=== PATIENT | male | born 1935 | race Caucasian/White ===

== ENCOUNTER 2021-10-30 07:54 | Outpatient (REF) | payer MEDICARE, SELFPAY ==
[2021-07-31 10:05] VITALS: BP 132/60; BP 154/82
[2021-10-24 07:27] VITALS: BP 148/50; BMI 29.4
[2021-10-30 08:21] LABS: MANUAL DIFF FLAG NO
[2021-10-30 08:40] LABS: Basophils Absolute Auto 0.1 X10*3/uL (0.0-0.2); Basophils Percent Auto 1.1 % (0-2); Eosinophils Absolute Auto 0.4 X10*3/uL (0.0-0.4); Eosinophils Percent Auto 4.7 % (0-4); Hematocrit 42.9 % (42.0-52.0); Hemoglobin 13.6 g/dl (14.0-18.0); Imm Gran Abs Auto 0.04 X10*3/uL (0.00-0.03); Imm Gran Pct Auto 0.5 % (0.0-0.4); Lymphocytes Absolute Auto 1.8 X10*3/uL (1.2-4.9); Lymphocytes Percent Auto 21.6 % (20-40); Mean Corpuscular HGB Conc 31.7 g/dl (31.0-36.0); Mean Corpuscular Hemoglobin 30.6 pg (27.0-33.0); Mean Corpuscular Volume 96.4 fL (80.0-98.0); Mean Platelet Volume 10.1 fL (9.4-12.4); Monocytes Absolute Auto 0.8 X10*3/uL (0.1-1.2); Neutrophils Percent Auto 62.1 % (45-73); Platelet Count 192 X10*3/uL (160-400); Red Blood Count 4.45 X10*6/uL (4.60-5.80); Red Cell Distribution Width 12.6 % (11.0-16.0); White Blood Count 8.1 X10*3/uL (4.8-10.8)
[2021-10-30 09:44] LABS: Alanine Aminotransferase 26 U/L (0-40); Albumin Level 3.8 g/dL (3.5-5.0); Alkaline Phosphatase 83 U/L (39-117); Anion Gap 12 (12-20); Aspartate Amino Transferase 26 U/L (5-37); Bilirubin Total 0.2 mg/dL (0.0-1.0); Blood Urea Nitrogen 31 mg/dL (9-16); Calcium 9.5 mg/dL (8.4-10.2); Carbon Dioxide 27 mmol/L (22-29); Chloride 109 mmol/L (96-108); Cholesterol 198 mg/dL; Estimated Glomerular Filt Rate 48; Glucose Fasting 99 mg/dL (60-99); HDL Cholesterol 45 mg/dL; LDL Cholesterol Calculated 121 mg/dl; Potassium 5.3 mmol/L (3.3-5.1); Sodium 143 mmol/L (135-145); Total Protein 6.7 g/dL (6.5-8.0); Triglycerides 162 mg/dL
== END 2021-10-30 07:55 | disposition home or self-care (01) ==
LOC: HO.LAB 07:54
PROVIDERS: PCP Internal Medicine Medical Oncology; Visit Provider Internal Medicine Medical Oncology
DX: I10 Essential (primary) hypertension (principal); E78.2 Mixed hyperlipidemia
CPT/HCPCS: 36415; 80053; 80061; 85025

== ENCOUNTER 2022-01-30 07:41 | Outpatient (REF) | payer MEDICARE, SELFPAY ==
[2021-11-16 07:06] VITALS: BP 122/60; BP 126/56; BMI 29.9
[2022-01-30 08:03] LABS: MANUAL DIFF FLAG NO
[2022-01-30 09:03] LABS: Basophils Absolute Auto 0.1 X10*3/uL (0.0-0.2); Basophils Percent Auto 0.8 % (0-2); Eosinophils Absolute Auto 0.3 X10*3/uL (0.0-0.4); Eosinophils Percent Auto 3.5 % (0-4); Hematocrit 41.7 % (42.0-52.0); Hemoglobin 13.5 g/dl (14.0-18.0); Imm Gran Abs Auto 0.02 X10*3/uL (0.00-0.03); Imm Gran Pct Auto 0.3 % (0.0-0.4); Lymphocytes Absolute Auto 1.9 X10*3/uL (1.2-4.9); Lymphocytes Percent Auto 24.2 % (20-40); Mean Corpuscular HGB Conc 32.4 g/dl (31.0-36.0); Mean Corpuscular Hemoglobin 30.8 pg (27.0-33.0); Mean Corpuscular Volume 95.2 fL (80.0-98.0); Mean Platelet Volume 10.2 fL (9.4-12.4); Monocytes Absolute Auto 0.7 X10*3/uL (0.1-1.2); Monocytes Percent Auto 8.7 % (2-11); Neutrophils Absolute Auto 4.8 x10*3/uL (2.0-8.3); Neutrophils Percent Auto 62.5 % (45-73); Platelet Count 188 X10*3/uL (160-400); Red Blood Count 4.38 X10*6/uL (4.60-5.80); Red Cell Distribution Width 12.4 % (11.0-16.0); White Blood Count 7.7 X10*3/uL (4.8-10.8)
[2022-01-30 09:51] LABS: Alanine Aminotransferase 21 U/L (0-40); Albumin Level 3.9 g/dL (3.5-5.0); Alkaline Phosphatase 84 U/L (39-117); Anion Gap 13 (12-20); Aspartate Amino Transferase 21 U/L (5-37); Bilirubin Total 0.4 mg/dL (0.0-1.0); Blood Urea Nitrogen 37 mg/dL (9-16); Calcium 8.9 mg/dL (8.4-10.2); Carbon Dioxide 26 mmol/L (22-29); Chloride 106 mmol/L (96-108); Cholesterol 192 mg/dL; Estimated Glomerular Filt Rate 52; Glucose Fasting 100 mg/dL (60-99); HDL Cholesterol 50 mg/dL; LDL Cholesterol Calculated 111 mg/dl; Potassium 4.8 mmol/L (3.3-5.1); Sodium 140 mmol/L (135-145); Total Protein 6.8 g/dL (6.5-8.0); Triglycerides 155 mg/dL
== END 2022-01-30 07:42 | disposition home or self-care (01) ==
LOC: HO.LAB 07:41
PROVIDERS: PCP Internal Medicine Medical Oncology; Visit Provider Internal Medicine Medical Oncology
DX: I10 Essential (primary) hypertension (principal); E78.2 Mixed hyperlipidemia
CPT/HCPCS: 36415; 80053; 80061; 85025

== ENCOUNTER 2022-08-27 09:14 | Outpatient (REF) | payer MEDICARE, SELFPAY ==
[2021-11-16 07:06] VITALS: BP 122/60; BP 126/56; BMI 29.9
[2022-08-27 09:26] LABS: MANUAL DIFF FLAG NO
[2022-08-27 10:19] LABS: Basophils Absolute Auto 0.1 X10*3/uL (0.0-0.2); Eosinophils Absolute Auto 0.3 X10*3/uL (0.0-0.4); Eosinophils Percent Auto 3.5 % (0-4); Hematocrit 41.8 % (42.0-52.0); Hemoglobin 13.3 g/dl (14.0-18.0); Imm Gran Abs Auto 0.02 X10*3/uL (0.00-0.03); Imm Gran Pct Auto 0.3 % (0.0-0.4); Lymphocytes Absolute Auto 1.9 X10*3/uL (1.2-4.9); Lymphocytes Percent Auto 24.9 % (20-40); Mean Corpuscular HGB Conc 31.8 g/dl (31.0-36.0); Mean Corpuscular Hemoglobin 30.4 pg (27.0-33.0); Mean Corpuscular Volume 95.7 fL (80.0-98.0); Mean Platelet Volume 9.9 fL (9.4-12.4); Monocytes Absolute Auto 0.6 X10*3/uL (0.1-1.2); Neutrophils Absolute Auto 4.8 x10*3/uL (2.0-8.3); Neutrophils Percent Auto 62.3 % (45-73); Platelet Count 181 X10*3/uL (160-400); Red Blood Count 4.37 X10*6/uL (4.60-5.80); Red Cell Distribution Width 12.6 % (11.0-16.0); White Blood Count 7.7 X10*3/uL (4.8-10.8)
[2022-08-27 11:20] LABS: Alanine Aminotransferase 22 U/L (0-40); Albumin Level 3.7 g/dL (3.5-5.0); Alkaline Phosphatase 89 U/L (39-117); Anion Gap 12 (12-20); Aspartate Amino Transferase 23 U/L (5-37); Bilirubin Total 0.5 mg/dL (0.0-1.0); Blood Urea Nitrogen 23 mg/dL (9-16); Carbon Dioxide 28 mmol/L (22-29); Chloride 108 mmol/L (96-108); Cholesterol 174 mg/dL; Estimated Glomerular Filt Rate 52; Glucose Random 91 mg/dL (60-115); HDL Cholesterol 46 mg/dL; LDL Cholesterol Calculated 94 mg/dl; Potassium 4.9 mmol/L (3.3-5.1); Sodium 143 mmol/L (135-145); Total Protein 6.4 g/dL (6.5-8.0); Triglycerides 172 mg/dL
== END 2022-08-27 09:15 | disposition home or self-care (01) ==
LOC: HO.LAB 09:14
PROVIDERS: PCP Internal Medicine Medical Oncology; Visit Provider Internal Medicine Medical Oncology
DX: I10 Essential (primary) hypertension (principal); E78.2 Mixed hyperlipidemia; E66.3 Overweight
CPT/HCPCS: 36415; 80053; 80061; 85025

== ENCOUNTER 2023-01-28 10:08 | Outpatient (REF) | payer MEDICARE, SELFPAY ==
[2021-11-16 07:06] VITALS: BP 122/60; BP 126/56; BMI 29.9
== END 2023-01-28 10:09 | disposition home or self-care (01) ==
LOC: HO.LAB 10:08
PROVIDERS: PCP Internal Medicine Medical Oncology; Visit Provider Internal Medicine Medical Oncology
DX: Z12.5 Encounter for screening for malignant neoplasm of prostate (principal); I10 Essential (primary) hypertension; E78.2 Mixed hyperlipidemia; N40.1 Benign prostatic hyperplasia with lower urinary tract symptoms; E66.3 Overweight
CPT/HCPCS: 36415; 80053; 80061; 84153; 85025

== ENCOUNTER 2023-02-18 08:45 | Emergency (ER) | payer MEDICARE, SELFPAY ==
[2021-11-16 07:06] VITALS: BP 122/60; BP 126/56; BMI 29.9
--- NOTE | ~2023-02-18 | XR_ITS ---
EXAMINATION: XR KNEE, LEFT CLINICAL INFORMATION: Pain and popping in left knee COMPARISON: None available. TECHNIQUE: Four views of the left knee. FINDINGS: No fracture or joint effusion. Alignment is anatomic. Joint spaces are maintained. No abnormal soft tissue calcification. XR/XR knee LT 3V IMPRESSION: Normal left knee.
--- NOTE | ~2023-02-18 | US_ITS ---
EXAMINATION: US EXTREMITY, NONVASCULAR left CLINICAL INFORMATION: Posterior left knee pain COMPARISON: None available. TECHNIQUE: Real-time examination in the left popliteal fossa. FINDINGS: No mass, cyst, or abnormal soft tissue distortion seen. The popliteal vein compresses, with no focal abnormality seen. Popliteal vein patency is observed. US/US extremity nonvascular IMPRESSION: No focal sonographic abnormality.
[2023-02-18 08:52] VITALS: BP 120/68; BP 172/66; PULSE 56; PULSE 58; RESP 16; TEMP 36.5; O2SAT 98; O2SAT 99; BMI 26.0
--- NOTE | 2023-02-18 09:10 | ED.LOWEXIN ---
HPI - Extremity Injury (Lower) General Chief Complaint: Extremity Injury, Lower Stated Complaint: L LEG PAIN WHILE WALKING, NO FALL Time Seen by Provider: 02/18/23 09:03 Source: patient, EMS, RN notes reviewed and old records reviewed Mode of arrival: EMS History of Present Illness HPI Narrative: 87-year-old male with no significant past medical history presenting to the ED complaining of posterior left knee pain s/p walking down the stairs [employer] and hearing a pop. Patient reports old injury to same knee about 1 month ago while gardening. Denies direct injury/trauma or fall, has been minimally ambulatory since incident, with pain. Denies numbness, tingling, weakness, fever/chills, headache Related Data Home Medications Medication Instructions Recorded Confirmed aspirin 81 mg tablet,delayed 81 mg PO DAILY 11/30/22 release metoprolol tartrate 100 mg tablet 100 mg PO BID 11/30/22 simvastatin 40 mg tablet 40 mg PO QPM 11/30/22 Previous Rx's Medication Instructions Recorded azithromycin 250 mg tablet See Rx Instructions PO .COMPLEX #6 11/30/22 (Zithromax Z-Greg) tabs montelukast 10 mg tablet 10 mg PO BEDTIME #30 tabs 11/30/22 Allergies Allergy/AdvReac Type Severity Reaction Status Date / Time No Known Allergies Allergy Verified 11/30/22 10:31 [No Known Allergies*] Review of Systems Review of Systems: Constitutional: No Fever, No Chills ENT/Mouth: No Ear Pain, No Nasal Congestion, No sore throat, No Rhinorrhea, No Swallowing Difficulty Cardiovascular: No Chest Pain, No SOB Respiratory: No Cough, No Sputum, No Wheezing Gastrointestinal: No Nausea, No Vomiting, No Abdominal pain Musculoskeletal: + joint pain, No Myalgias, No Joint Swelling Skin: No Skin Lesions, No rash Neuro: No Weakness, No Numbness, No Paresthesias Yes all other systems are reviewed and are negative Constitutional: Constitutional: Reports as per [facility] Past Medical History Attestation statement: The following information was validated with the patient. Source: old records reviewed Social History Social History Alcohol intake: never Patient Tobacco Use Status: Never used Tobacco Tobacco use type: Cigarette Smoked in Last 30 Days: No Use of substances other than those prescribed or required for medical reasons: No Advance Directives: No Advance Directives Information Provided: No Physical Exam Vital Signs: Vital Signs: Last Vital Signs Temp 97.9 F 02/18/23 10:31 Pulse 58 02/18/23 10:31 Resp 18 02/18/23 10:31 BP 161/74 H 02/18/23 10:31 Pulse Ox 99 02/18/23 10:31 O2 Del Method Room Air 02/18/23 10:31 BMI result Body Mass Index 26.0 Const: General: cooperative, healthy appearing and no acute distress Orientation/consciousness: patient oriented x3 Limitations: no limitations HEENT: Head: Yes normal to inspection and Yes atraumatic Ears: hearing grossly normal bilaterally General nose exam: Normal external nose present Face and sinus: Yes normal facial exam Eyes: General: appearance normal, both eyes and all related structures EOM: EOMs intact bilaterally Neck: Neck: Yes normal visual inspection and Yes no meningeal signs Resp: Effort & Inspection: normal respiratory effort and no respiratory distress Cardio: Rate: regular rate Peripheral pulses: Peripheral pulses 2+ throughout Skin: Rashes: no rashes Wounds: no wounds Neuro: General: patient oriented x3, tone normal and no meningeal signs Gait exam (Neuro): Normal gait present Extrem: Other: Left knee without noted deformity, + tenderness to palpation to posterior aspect/distal posterior thigh, no deformity/erythema or ecchymosis. Neurovascular intact distally. Full range of motion intact with some discomfort. No pitting edema, no Achilles tenderness or calf tenderness General: Yes normal to inspection Course Course Course Narrative: 1107--US extremity nonvascular IMPRESSION: No focal sonographic abnormality.? XR knee LT 3V IMPRESSION: Normal left knee. > [place] wrap applied for comfort > recommended close PCP/orthopedic follow-up Medical Decision Making Medical Decision Making MDM Narrative: 87-year-old male with no significant past medical history presenting to the ED complaining of posterior left knee pain s/p walking down the stairs [employer] and hearing a pop. On exam vital signs stable, NAD, nontoxic appearing with physical exam as noted above. Concern for tendon/ligamental, musculoskeletal injury. Lower suspicion for fracture, dislocation, meniscal injury. No evidence of septic joint/arthritis. Lower suspicion for Achilles or gastrocnemius muscle injury Plan: X-ray, ultrasound Please refer to course for remaining clinical decision making, interpretation of labs/imaging results, and discussions with consultants and/or family members. Differential Diagnosis Differential Diagnoses: The differential diagnosis associated with the presentation includes As above Independent Interpretation I performed an independent interpretation of an: Plain X-Ray and Ultrasound Radiology Impression Discussion of test interpretation with radiology: I have reviewed the radiologist's reading. Independent Historian Clinical information obtained from an independent historian. History obtained from or confirmed by: Spouse External Record Review External record reviewed: Inpatient record, Office record, Outpatient record, Prior outpatient labs, Prior outpatient radiology, Primary care record and Outside ED record Tests considered The following testing was considered but not selected: As above Prescription Management I considered prescription management with: Pain Medication Discharge Plan Discharge Clinical Impression: Acute knee pain Qualifiers: Laterality: left Qualified Code(s): M25.562 - Pain in left knee Patient Disposition: Home, Self-Care Instructions: Knee Pain (ED) Additional Instructions: Your x-ray and ultrasound were unremarkable Wear [place] wrap for stability/comfort Ice and elevate Take Tylenol /Motrin for pain/swelling Follow-up with her doctor and Orthopedics, you will likely need an MRI Symptoms persist or worsen/becomes unbearable return to the ED Prescriptions: No Action metoprolol tartrate 100 mg tablet 100 mg PO BID simvastatin 40 mg tablet 40 mg PO QPM aspirin 81 mg tablet,delayed release (DR/EC) 81 mg PO DAILY azithromycin [Zithromax Z-Greg] 250 mg tablet See Rx Instructions PO .COMPLEX Qty: 6 0RF Rx Instructions: For 250 mg dose pack: take 500 mg today (day 1), then 250 mg for 4 days (days 2-5) PO montelukast 10 mg tablet 10 mg PO BEDTIME Qty: 30 0RF Referrals: [facility]Provider Group] - 1 week Interventions: ED Discharge Assessment Last Done: 02/18/23 11:36 Discharge Date/Time: 02/18/23 11:36
[2023-02-18 10:31] VITALS: BP 161/74; PULSE 58; RESP 18; TEMP 36.6; O2SAT 99
== END 2023-02-18 11:36 | disposition home or self-care (01) ==
PROVIDERS: Emergency Provider Emergency Medicine
DX: M25.562 Pain in left knee (principal); Z87.891 Personal history of nicotine dependence
CPT/HCPCS: 73562; 76882; 99284

== ENCOUNTER 2023-02-27 09:49 | Outpatient (AMB) | payer MEDICARE, SELFPAY ==
[2021-11-16 07:06] VITALS: BP 122/60; BP 126/56; BMI 29.9
[2023-02-22 13:02] VITALS: BP 122/60; BP 126/56; BMI 29.9
--- NOTE | 2023-02-27 10:38 | A.OFFVIS_ITS ---
Intake Vital Signs 02/27/23 10:39 Height 5 ft 5 in Weight 156 lb BMI 26.0 Intake Visit Reasons: [employer]-Left Knee Pain Intake Note: Doroteo is a 87 year old male who presents today as a new patient for a evaluation for left knee pain, DOI 02/18/23. Patient reports when he was going down the steps he felt a pop and his son had to help him go down the stairs. Hx of home exercises with mild relief. He states that his pain is on the medial aspect of the knee. He denies any other injuries. He has returned to riding his stationary bike with no resistance. He has taken Tylenol which gives him mild relief. He has been walking with a walker to be safe. Allergies No Known Allergies [No Known Allergies*] Allergy (Verified 02/27/23 10:41) Medication List - Last Reconciled 02/27/23 by Kashif Krause MD aspirin 81 mg PO DAILY azithromycin (Zithromax Z-Greg) For 250 mg dose pack: take 500 mg today (day 1), then 250 mg for 4 days (days 2-5) PO metoprolol tartrate 100 mg PO BID montelukast 10 mg PO BEDTIME simvastatin 40 mg PO QPM [facility] Social History Alcohol intake: never Patient Tobacco Use Status: Never used Tobacco Tobacco use type: Cigarette Physical Exam Vital Signs: BMI result Body Mass Index 26.0 Const Other: Well-nourished well-developed very friendly male awake alert and oriented x3 in no acute distress Extrem Other: Bilateral lower extremity examination shows good capillary refill, no skin lesions noted, normal sensation light touch Left knee examination shows a minimal effusion, full active extension and flexion, no palpable defects within his patella or quadriceps tendons, tenderness along his medial joint line, positive Farhana's test, no instability Results Reviewed Results Reviewed: X-rays of the patient's left knee show mild diffuse joint space narrowing, no acute bony abnormalities Assessment & Plan Assessment & Plan (1) Left knee pain: Code(s): M25.562 - Pain in left knee Plan: Mr. 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 At this point the patient's symptoms seem to be improving on their own. Activity modifications were discussed at length with the patient. We will hold off on an MRI at this time. The patient will follow-up with me should his symptoms not plateau at an unacceptable level over the next few months. If his mechanical symptoms do continue or worsen I will order an MRI of his left knee to further evaluate the status of his medial meniscus. Feel free to call me at any time should questions regarding his orthopedic management arise. Thank you very much for asking me to see this very friendly gentleman. I spent 22 minutes in reviewing the patient's records and imaging studies, seeing the patient and documenting in the medical record. Coding Level of Care Code New Pt Level 2 (04116) Diagnoses Left knee pain M25.562
[2023-02-27 10:39] VITALS: BMI 26.0
== END 2023-02-27 10:56 | disposition home or self-care (01) ==
PROVIDERS: Visit Provider Orthopaedic Surgery
DX: M25.562 Pain in left knee (principal)
CPT/HCPCS: 99202

== ENCOUNTER → 2023-02-27 09:49 | Outpatient (BNVA) | payer MEDICARE, SELFPAY ==
[2023-02-22 13:02] VITALS: BP 122/60; BP 126/56; BMI 29.9
== END ==
PROVIDERS: Visit Provider Orthopaedic Surgery
DX: M25.562 Pain in left knee (principal)
CPT/HCPCS: 99202

== ENCOUNTER 2023-05-06 09:07 | Outpatient (REF) | payer MEDICARE, SELFPAY ==
[2023-02-22 13:02] VITALS: BP 122/60; BP 126/56; BMI 29.9
[2023-05-06 09:32] LABS: MANUAL DIFF FLAG NO
[2023-05-06 10:22] LABS: Basophils Absolute Auto 0.1 X10*3/uL (0.0-0.2); Basophils Percent Auto 1.2 % (0-2); Eosinophils Absolute Auto 0.5 X10*3/uL (0.0-0.4); Hemoglobin 12.7 g/dl (14.0-18.0); Imm Gran Abs Auto 0.03 X10*3/uL (0.00-0.03); Imm Gran Pct Auto 0.4 % (0.0-0.4); Lymphocytes Absolute Auto 1.6 X10*3/uL (1.2-4.9); Lymphocytes Percent Auto 20.6 % (20-40); Mean Corpuscular HGB Conc 31.8 g/dl (31.0-36.0); Mean Corpuscular Hemoglobin 30.5 pg (27.0-33.0); Mean Corpuscular Volume 95.9 fL (80.0-98.0); Mean Platelet Volume 10.3 fL (9.4-12.4); Monocytes Absolute Auto 0.7 X10*3/uL (0.1-1.2); Monocytes Percent Auto 9.4 % (2-11); Neutrophils Absolute Auto 4.8 x10*3/uL (2.0-8.3); Neutrophils Percent Auto 62.4 % (45-73); Platelet Count 185 X10*3/uL (160-400); Red Blood Count 4.17 X10*6/uL (4.60-5.80); Red Cell Distribution Width 12.6 % (11.0-16.0); White Blood Count 7.7 X10*3/uL (4.8-10.8)
[2023-05-06 11:29] LABS: Alanine Aminotransferase 19 U/L (0-40); Albumin Level 3.7 g/dL (3.5-5.0); Alkaline Phosphatase 87 U/L (39-117); Anion Gap 15 (12-20); Aspartate Amino Transferase 20 U/L (5-37); Bilirubin Total 0.4 mg/dL (0.0-1.0); Blood Urea Nitrogen 38 mg/dL (9-16); Calcium 9.5 mg/dL (8.4-10.2); Carbon Dioxide 24 mmol/L (22-29); Chloride 107 mmol/L (96-108); Cholesterol 155 mg/dL (<200); Estimated Glomerular Filt Rate 54; Glucose Fasting 103 mg/dL (60-99); HDL Cholesterol 39 mg/dL (>40); LDL Cholesterol Calculated 86 mg/dL (<100); Potassium 4.9 mmol/L (3.3-5.1); Sodium 141 mmol/L (135-145); Total Protein 7.1 g/dL (6.5-8.0); Triglycerides 152 mg/dL (<150)
== END 2023-05-06 09:08 | disposition home or self-care (01) ==
LOC: HO.LAB 09:07
PROVIDERS: PCP Internal Medicine Medical Oncology; Visit Provider Internal Medicine Medical Oncology
DX: I10 Essential (primary) hypertension (principal); E78.2 Mixed hyperlipidemia; E66.3 Overweight
CPT/HCPCS: 36415; 80053; 80061; 85025

== ENCOUNTER 2023-11-11 08:41 | Outpatient (REF) | payer MEDICARE, SELFPAY ==
[2023-02-22 13:02] VITALS: BP 122/60; BP 126/56; BMI 29.9
[2023-11-11 09:01] LABS: MANUAL DIFF FLAG NO
[2023-11-11 09:19] LABS: Basophils Absolute Auto 0.1 X10*3/uL (0.0-0.2); Eosinophils Absolute Auto 0.4 X10*3/uL (0.0-0.4); Eosinophils Percent Auto 4.8 % (0-4); Hematocrit 41.5 % (42.0-52.0); Hemoglobin 13.4 g/dl (14.0-18.0); Imm Gran Abs Auto 0.03 X10*3/uL (0.00-0.03); Imm Gran Pct Auto 0.3 % (0.0-0.4); Lymphocytes Absolute Auto 1.8 X10*3/uL (1.2-4.9); Lymphocytes Percent Auto 20.4 % (20-40); Mean Corpuscular HGB Conc 32.3 g/dl (31.0-36.0); Mean Corpuscular Hemoglobin 30.5 pg (27.0-33.0); Mean Corpuscular Volume 94.5 fL (80.0-98.0); Mean Platelet Volume 10.1 fL (9.4-12.4); Monocytes Absolute Auto 0.6 X10*3/uL (0.1-1.2); Monocytes Percent Auto 7.2 % (2-11); Neutrophils Absolute Auto 5.7 x10*3/uL (2.0-8.3); Neutrophils Percent Auto 66.3 % (45-73); Platelet Count 184 X10*3/uL (160-400); Red Blood Count 4.39 X10*6/uL (4.60-5.80); Red Cell Distribution Width 12.8 % (11.0-16.0); White Blood Count 8.6 X10*3/uL (4.8-10.8)
[2023-11-11 09:45] LABS: Alanine Aminotransferase 25 U/L (0-40); Albumin Level 3.8 g/dL (3.5-5.0); Alkaline Phosphatase 87 U/L (39-117); Anion Gap 10 (12-20); Aspartate Amino Transferase 23 U/L (5-37); Bilirubin Total 0.4 mg/dL (0.0-1.0); Blood Urea Nitrogen 41 mg/dL (9-16); Calcium 9.6 mg/dL (8.4-10.2); Carbon Dioxide 27 mmol/L (22-29); Chloride 112 mmol/L (96-108); Cholesterol 173 mg/dL (<200); Estimated Glomerular Filt Rate 56; Glucose Fasting 102 mg/dL (60-99); HDL Cholesterol 46 mg/dL (>40); LDL Cholesterol Calculated 98 mg/dL (<100); Potassium 5.5 mmol/L (3.3-5.1); Sodium 143 mmol/L (135-145); Total Protein 7.1 g/dL (6.5-8.0); Triglycerides 148 mg/dL (<150)
[2023-11-11 10:00] LABS: Prostate Specific Antigen 0.72 ng/mL (<0.05-4.0)
== END 2023-11-11 08:42 | disposition home or self-care (01) ==
LOC: HO.LAB 08:41
PROVIDERS: PCP Internal Medicine Medical Oncology; Visit Provider Internal Medicine Medical Oncology
DX: I10 Essential (primary) hypertension (principal); E78.2 Mixed hyperlipidemia; N40.1 Benign prostatic hyperplasia with lower urinary tract symptoms; E66.3 Overweight; Z12.5 Encounter for screening for malignant neoplasm of prostate
CPT/HCPCS: 36415; 80053; 80061; 84153; 85025

== ENCOUNTER 2024-03-09 09:15 | Outpatient (REF) | payer MEDICARE, SELFPAY ==
[2023-02-22 13:02] VITALS: BP 122/60; BP 126/56; BMI 29.9
[2024-03-09 09:27] LABS: MANUAL DIFF FLAG NO
[2024-03-09 10:07] LABS: Basophils Absolute Auto 0.1 X10*3/uL (0.0-0.2); Basophils Percent Auto 1.1 % (0-2); Eosinophils Absolute Auto 0.4 X10*3/uL (0.0-0.4); Eosinophils Percent Auto 5.1 % (0-4); Hematocrit 38.1 % (42.0-52.0); Hemoglobin 12.3 g/dl (14.0-18.0); Imm Gran Abs Auto 0.03 X10*3/uL (0.00-0.03); Imm Gran Pct Auto 0.4 % (0.0-0.4); Lymphocytes Absolute Auto 1.8 X10*3/uL (1.2-4.9); Lymphocytes Percent Auto 22.3 % (20-40); Mean Corpuscular HGB Conc 32.3 g/dl (31.0-36.0); Mean Corpuscular Hemoglobin 31.2 pg (27.0-33.0); Mean Corpuscular Volume 96.7 fL (80.0-98.0); Mean Platelet Volume 10.1 fL (9.4-12.4); Monocytes Absolute Auto 0.6 X10*3/uL (0.1-1.2); Monocytes Percent Auto 7.5 % (2-11); Neutrophils Percent Auto 63.6 % (45-73); Platelet Count 166 X10*3/uL (160-400); Red Blood Count 3.94 X10*6/uL (4.60-5.80); Red Cell Distribution Width 12.6 % (11.0-16.0); White Blood Count 7.9 X10*3/uL (4.8-10.8)
[2024-03-09 10:39] LABS: Alanine Aminotransferase 20 U/L (0-40); Albumin Level 3.8 g/dL (3.5-5.0); Alkaline Phosphatase 63 U/L (39-117); Anion Gap 10 (12-20); Aspartate Amino Transferase 20 U/L (5-37); Bilirubin Total 0.4 mg/dL (0.0-1.0); Blood Urea Nitrogen 40 mg/dL (9-16); Calcium 9.1 mg/dL (8.4-10.2); Carbon Dioxide 27 mmol/L (22-29); Chloride 109 mmol/L (96-108); Cholesterol 137 mg/dL (<200); Estimated Glomerular Filt Rate 45; Glucose Fasting 101 mg/dL (60-99); HDL Cholesterol 44 mg/dL (>40); LDL Cholesterol Calculated 63 mg/dL (<100); Potassium 5.3 mmol/L (3.3-5.1); Sodium 141 mmol/L (135-145); Total Protein 6.8 g/dL (6.5-8.0); Triglycerides 150 mg/dL (<150)
== END 2024-03-09 09:16 | disposition home or self-care (01) ==
LOC: HO.LAB 09:15
PROVIDERS: PCP Internal Medicine Medical Oncology; Visit Provider Internal Medicine Medical Oncology
DX: I10 Essential (primary) hypertension (principal); E78.2 Mixed hyperlipidemia; E66.3 Overweight
CPT/HCPCS: 36415; 80053; 80061; 85025

== ENCOUNTER 2024-03-30 09:15 | Outpatient (REF) | payer MEDICARE, SELFPAY ==
[2023-02-22 13:02] VITALS: BP 122/60; BP 126/56; BMI 29.9
[2024-03-30 09:28] LABS: MANUAL DIFF FLAG NO
[2024-03-30 10:23] LABS: Basophils Absolute Auto 0.1 X10*3/uL (0.0-0.2); Basophils Percent Auto 0.9 % (0-2); Eosinophils Absolute Auto 0.3 X10*3/uL (0.0-0.4); Hematocrit 40.6 % (42.0-52.0); Hemoglobin 12.8 g/dl (14.0-18.0); Imm Gran Abs Auto 0.03 X10*3/uL (0.00-0.03); Imm Gran Pct Auto 0.4 % (0.0-0.4); Lymphocytes Absolute Auto 1.9 X10*3/uL (1.2-4.9); Lymphocytes Percent Auto 23.2 % (20-40); Mean Corpuscular HGB Conc 31.5 g/dl (31.0-36.0); Mean Corpuscular Hemoglobin 31.2 pg (27.0-33.0); Mean Platelet Volume 10.2 fL (9.4-12.4); Monocytes Absolute Auto 0.6 X10*3/uL (0.1-1.2); Monocytes Percent Auto 7.7 % (2-11); Neutrophils Absolute Auto 5.1 x10*3/uL (2.0-8.3); Neutrophils Percent Auto 63.8 % (45-73); Platelet Count 173 X10*3/uL (160-400); Red Cell Distribution Width 12.3 % (11.0-16.0); White Blood Count 8.1 X10*3/uL (4.8-10.8)
[2024-03-30 11:08] LABS: Alanine Aminotransferase 27 U/L (0-40); Albumin Level 3.7 g/dL (3.5-5.0); Alkaline Phosphatase 68 U/L (39-117); Anion Gap 12 (12-20); Aspartate Amino Transferase 21 U/L (5-37); Bilirubin Total 0.4 mg/dL (0.0-1.0); Blood Urea Nitrogen 44 mg/dL (9-16); Calcium 8.9 mg/dL (8.4-10.2); Carbon Dioxide 25 mmol/L (22-29); Chloride 109 mmol/L (96-108); Cholesterol 133 mg/dL (<200); Estimated Glomerular Filt Rate 41; Glucose Fasting 95 mg/dL (60-99); HDL Cholesterol 42 mg/dL (>40); LDL Cholesterol Calculated 63 mg/dL (<100); Potassium 5.5 mmol/L (3.3-5.1); Sodium 140 mmol/L (135-145); Total Protein 6.7 g/dL (6.5-8.0); Triglycerides 144 mg/dL (<150)
== END 2024-03-30 09:16 | disposition home or self-care (01) ==
LOC: HO.LAB 09:15
PROVIDERS: PCP Internal Medicine Medical Oncology; Visit Provider Internal Medicine Medical Oncology
DX: I10 Essential (primary) hypertension (principal); E78.2 Mixed hyperlipidemia
CPT/HCPCS: 36415; 80053; 80061; 85025

== ENCOUNTER 2024-06-08 09:27 | Outpatient (REF) | payer MEDICARE, SELFPAY ==
[2023-02-22 13:02] VITALS: BP 122/60; BP 126/56; BMI 29.9
[2024-06-08 09:51] LABS: MANUAL DIFF FLAG NO
[2024-06-08 10:26] LABS: Basophils Absolute Auto 0.1 X10*3/uL (0.0-0.2); Eosinophils Absolute Auto 0.4 X10*3/uL (0.0-0.4); Eosinophils Percent Auto 4.7 % (0-4); Hemoglobin 12.2 g/dl (14.0-18.0); Imm Gran Abs Auto 0.05 X10*3/uL (0.00-0.03); Imm Gran Pct Auto 0.6 % (0.0-0.4); Lymphocytes Absolute Auto 1.5 X10*3/uL (1.2-4.9); Lymphocytes Percent Auto 18.6 % (20-40); Mean Corpuscular HGB Conc 32.1 g/dl (31.0-36.0); Mean Corpuscular Hemoglobin 31.4 pg (27.0-33.0); Mean Corpuscular Volume 97.7 fL (80.0-98.0); Mean Platelet Volume 10.2 fL (9.4-12.4); Monocytes Absolute Auto 0.8 X10*3/uL (0.1-1.2); Monocytes Percent Auto 9.6 % (2-11); Neutrophils Absolute Auto 5.2 x10*3/uL (2.0-8.3); Neutrophils Percent Auto 65.5 % (45-73); Platelet Count 161 X10*3/uL (160-400); Red Blood Count 3.89 X10*6/uL (4.60-5.80); Red Cell Distribution Width 12.1 % (11.0-16.0)
[2024-06-08 11:00] LABS: Cholesterol 115 mg/dL (<200); HDL Cholesterol 38 mg/dL (>40); LDL Cholesterol Calculated 56 mg/dL (<100); Triglycerides 107 mg/dL (<150)
== END 2024-06-08 09:28 | disposition home or self-care (01) ==
LOC: HO.LAB 09:27
PROVIDERS: PCP Internal Medicine Medical Oncology; Visit Provider Internal Medicine Medical Oncology
DX: I10 Essential (primary) hypertension (principal); E78.2 Mixed hyperlipidemia; E66.3 Overweight
CPT/HCPCS: 36415; 80061; 85025

== ENCOUNTER 2024-10-12 10:40 | Outpatient (REF) | payer MEDICARE, SELFPAY ==
[2023-02-22 13:02] VITALS: BP 122/60; BP 126/56; BMI 29.9
[2024-10-12 10:59] LABS: MANUAL DIFF FLAG NO
[2024-10-12 11:22] LABS: Basophils Absolute Auto 0.1 X10*3/uL (0.0-0.2); Basophils Percent Auto 0.9 % (0-2); Eosinophils Absolute Auto 0.3 X10*3/uL (0.0-0.4); Eosinophils Percent Auto 3.5 % (0-4); Hematocrit 41.7 % (42.0-52.0); Hemoglobin 13.3 g/dl (14.0-18.0); Imm Gran Abs Auto 0.03 X10*3/uL (0.00-0.03); Imm Gran Pct Auto 0.3 % (0.0-0.4); Lymphocytes Absolute Auto 1.9 X10*3/uL (1.2-4.9); Lymphocytes Percent Auto 21.1 % (20-40); Mean Corpuscular HGB Conc 31.9 g/dl (31.0-36.0); Mean Corpuscular Hemoglobin 30.5 pg (27.0-33.0); Mean Corpuscular Volume 95.6 fL (80.0-98.0); Mean Platelet Volume 10.2 fL (9.4-12.4); Monocytes Absolute Auto 0.9 X10*3/uL (0.1-1.2); Monocytes Percent Auto 9.9 % (2-11); Neutrophils Absolute Auto 5.7 x10*3/uL (2.0-8.3); Neutrophils Percent Auto 64.3 % (45-73); Platelet Count 171 X10*3/uL (160-400); Red Blood Count 4.36 X10*6/uL (4.60-5.80); Red Cell Distribution Width 12.7 % (11.0-16.0); White Blood Count 8.8 X10*3/uL (4.8-10.8)
[2024-10-12 11:58] LABS: Alanine Aminotransferase 20 U/L (0-40); Albumin Level 3.7 g/dL (3.5-5.0); Anion Gap 11 (12-20); Aspartate Amino Transferase 27 U/L (5-37); Bilirubin Total 0.4 mg/dL (0.0-1.0); Blood Urea Nitrogen 24 mg/dL (9-16); Calcium 9.3 mg/dL (8.4-10.2); Carbon Dioxide 28 mmol/L (22-29); Chloride 109 mmol/L (96-108); Estimated Glomerular Filt Rate 53; Glucose Random 75 mg/dL (60-115); Potassium 5.6 mmol/L (3.3-5.1); Sodium 142 mmol/L (135-145); Total Protein 6.8 g/dL (6.5-8.0)
[2024-10-12 12:08] LABS: Prostate Specific Antigen 0.67 ng/mL (<0.05-4.0)
[2024-10-12 12:22] LABS: Alkaline Phosphatase 77 U/L (39-117); Vitamin D 25-OH Total 59.6 ng/mL (>30)
== END 2024-10-12 10:41 | disposition home or self-care (01) ==
LOC: HO.LAB 10:40
PROVIDERS: PCP Internal Medicine Medical Oncology; Visit Provider Internal Medicine Medical Oncology
DX: Z00.00 Encounter for general adult medical examination without abnormal findings (principal); I10 Essential (primary) hypertension; Z12.5 Encounter for screening for malignant neoplasm of prostate; E78.2 Mixed hyperlipidemia; E66.3 Overweight; N40.1 Benign prostatic hyperplasia with lower urinary tract symptoms; E55.9 Vitamin D deficiency, unspecified
CPT/HCPCS: 36415; 80053; 82306; 84153; 85025

== ENCOUNTER 2024-11-27 10:11 | Outpatient (AMB) | payer MEDICARE, SELFPAY ==
[2023-02-22 13:02] VITALS: BP 122/60; BP 126/56; BMI 29.9
--- OUTSIDE RECORDS SUMMARY | 2024-11-27 10:39 | XMS_ITS | Continuity of Care Document ---
Author Name [facility] Organization [facility] Care Team Providers Care Stem Roller Name Role Phone 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 It does not include entries that were removed or entered in error. Problem Status Onset Date Problem Type Date of Resolution Comments Source Hearing Loss ([facility] [id number]) Active 07/22/19 22 Condition December 13, 2021 Entered By: DANGELO PAULINO Comment: followed by audiology [facility] Essential hypertension Active 07/22/19 09 Condition [facility] Hypercholesterolemia Active 07/22/19 09 Condition [facility] Diagnosis: ICD-10-CM Z46.1 Encounter for fitting and adjustment of hearing aid Active [facility] Diagnosis: ICD-10-CM H91.90 Unspecified hearing loss, unspecified ear Active Diagnosis [facility] Diagnosis: ICD-10-CM Z23 Encounter for immunization Active Diagnosis [facility] [place] [facility] Medications Combined list of outpatient medications from Department of Defense and Veterans Affairs facilities.Medications provided include 1) outpatient medications from the last 15 months, and 2) patient-reported medications. Medication Details Route Status Patient Instructions Prescription Expires Prescription Number Last Dispense Date Ordering Provider Order Date Order Qty Source ASPIRIN 81MG TAB,EC TAKE ONE TABLET BY MOUTH EVERY DAY ORAL ACTIVE CLOVER PAULINO UNRULY D 2009 [facility] LISINOPRIL 20MG TAB TAKE ONE TABLET BY MOUTH TWICE DAILY ORAL ACTIVE CLOVER PAULINOD D 2009 [facility] SIMVASTATIN 80MG TAB TAKE ONE TABLET BY MOUTH AT BEDTIME ORAL ACTIVE [place] PAULINO D [facility] Immunizations Combined list of available immunizations from the Department of Defense and [facility] facilities. Immunization Series Date Given Administered By Site Reaction Lot Number CVX Code Drug Motor Polarizer Status Comments Source COVID-19 (MODERNA), MRNA, LNP-S, PF, 50 MCG/0.5 ML (AGES 12+ YEARS) 4 2023 FLYAMALIA Cat Eugenia LEFT DELTO ID [id number] 312 complet ed [facility] INFLUENZA, HIGH-DOSE, QUADRIVALENT 2023 AMALIA BILL Eugenia LEFT DELTO ID [id number] 197 complet ed Completed Series, [facility] RSV, BIVALENT, PROTEIN SUBUNIT RSVPREF, DILUENT RECONSTITUTED , 0.5 ML, PF 2022 WES LUNDY LEFT DELTO ID [id number] 305 complet ed Completed Series, [facility] ZOSTER RECOMBINANT 2 2022 WES LUNDY LEFT DELTO ID [id number] 187 complet ed [facility] ZOSTER RECOMBINANT 1 2022 HIGINIO NICOLE M LEFT DELTO ID [id number] 187 complet ed [facility] INFLUENZA, UNSPECIFIED FORMULATION 2021 88 complet ed HISTORICA L INFORMATI ON - SOURCE UNSPECIFI ED, [facility] COVID-19 (PFIZER), MRNA, LNP-S, BIVALENT BOOSTER, PF, 30 MCG/0.3 ML DOSE 1 2021 300 complet ed HISTORICA L INFORMATI ON - SOURCE UNSPECIFI ED, [facility] INFLUENZA, UNSPECIFIED FORMULATION 2020 88 complet ed [facility] COVID-19 (MODERNA), MRNA, LNP-S, PF, 100 MCG/0.5 ML DOSE 2 2020 207 complet ed MOD; [id number]; [facility] COVID-19 (MODERNA), MRNA, LNP-S, PF, 100 MCG/0.5 ML DOSE 1 2020 207 complet ed MOD; [id number]; 1 [facility] INFLUENZA, UNSPECIFIED FORMULATION 2019 88 complet ed [facility] INFLUENZA, SEASONAL, INJECTABLE 2018 141 complet ed [facility] INFLUENZA, SEASONAL, INJECTABLE 2017 141 complet ed [facility] INFLUENZA, SEASONAL, INJECTABLE 2016 141 complet ed [facility] [place] [facility] FLU,3 YRS (HISTORICAL) 2015 88 complet ed [facility] FLU,3 YRS (HISTORICAL) 2014 88 complet ed [employer] in [place] [facility] DTAP, UNSPECIFIED FORMULATION 2013 107 complet ed Site: Right Deltoid [facility] FLU,3 YRS (HISTORICAL) 2013 88 complet ed Site: Left Deltoid [facility] PNEUMOCOCCAL POLYSACCHARID E [id number] 2013 33 complet ed [facility] Vital Signs Combined list of inpatient and outpatient Vital Signs from Department of Defense and Veterans Affairs, ranging from 12 months to all on record, depending upon the facility. Vital Sign Value Date Comments Source SYSTOLIC BLOOD PRESSURE 136 12/09/19 24 09:24:11 [facility] [place] [facility] DIASTOLIC BLOOD PRESSURE 68 024 09:24:11 [facility] [place] [facility] PULSE OXIMETRY 100 12/09/2023 09:24:11 [facility] WEIGHT 167.7 12/09/2023 09:24:11 [facility] BMI 28 kg/m2 12/09/2023 09:24:11 [facility] PAIN 0 12/09/2023 09:24:11 [facility] HEIGHT 65 12/09/2023 09:24:11 [facility] TEMPERATURE 98.2 12/09/2023 09:24:11 [facility] PULSE 53 12/09/2023 09:24:11 [facility] RESPIRATION 16 12/09/2023 09:24:11 [facility] Encounters Combined list of: 1) Encounters from Department of Veterans Affairs facilities going backup to the last 18 months, not all [place] inpatient encounters are included; 2) Encounters from the Department of Defense facilities going backup to 280 months. Location Location Details Encounter Type Encounter Number Reason For Visit Attending Provider ADM Date DC Date Status Disposition Source [facility] Outpatient Encounter [id number] 06/24 [facility] Outpatient Encounter [id number] 06/24 [facility] OFF/OP EST NOVEMBER X REQ PHY/QHP [id number] Diagnos is: ICD-10- CM Z23 Encount er for immuniz ation ANGELLA PAULINO RD D 07/01 [facility] OFFICE O/P EST LOW 20 MIN [id number] Diagnos is: ICD-10- CM H91.90 Unspeci fied hearing loss, unspeci fied ear ANGELLA PAULINO RD D 12/08 [facility] HEARING AID REPAIR/MOD IFYING [id number] Diagnos is: ICD-10- CM Z46.1 Encount er for fitting and adjustm ent of hearing aid DALLAS DEWITT 02/09 [facility] [place] Social History Combined list of available smoking, tobacco, and other social history from Department of Defense and Veterans Affairs facilities. Social History Type Response Date Comment Source Tobacco smoking status NHIS VA-TOBACCO FORMER USER 12/09/2023 [facility] [place] [facility] History of tobacco use AR-TOBACCO QUIT 15 YRS OR MORE 12/09/2023 [facility] [place] [facility] History of tobacco use AR-TOBACCO FORMER USER 12/12/2022 [facility] [place] [facility] History of tobacco use AR-TOBACCO FORMER USER 12/13/2021 [facility] [place] [facility] History of tobacco use AR-TOBACCO FORMER USER 12/13/2020 [facility] [place] [facility] History of tobacco use AR-TOBACCO FORMER USER 10/30/2019 [facility] [place] [facility] History of tobacco use AR-TOBACCO NEVER USED 11/14/2018 [facility] [place] [facility] History of tobacco use QUIT TOBACCO USE > 7 YEARS AGO 12/20/2017 [facility] [place] [facility] History of tobacco use QUIT TOBACCO USE > 7 YEARS AGO 11/24/2016 pt state he quit 30 yrs ago. [facility] [place] [facility] History of tobacco use QUIT TOBACCO USE > 7 YEARS AGO 10/01/2015 PT STATES HE QUIT 25 YRS AGO [facility] [place] [facility] History of tobacco use QUIT TOBACCO USE > 7 YEARS AGO 07/27/2009 [facility] [place] [facility] Plan of Care List of future care activities from Department of Veterans Affairs facilities. Additional future care activities may be listed in the Assessment and Plan section. Date/Time Care Activity Care Activity Detail Facili ty 12/07/2024 AMBULATORY - MEDICINE AMBULATORY - MEDICI NE [facility] [place] [facility]
--- OUTSIDE RECORDS SUMMARY | 2024-11-27 10:39 | XMS_ITS | Encounter Summary ---
Author Name [facility] Organization [facility] Address [address] [place] [address] Care Team Providers Care Swedish Masseuse Name Role Phone CATHERINE PAULINO Primary Care Provider Unavailabl e Insurance Providers: All historical and current Section Date Range: From patient's date of to the date document was created. This section includes the names of all active insurance providers for the patient. Insurance Provider Type of Coverage Plan Name Start of Policy Coverage End of Policy Coverage Group Number Member ID Insurance Provider's Telephone Number Policy Moctezuma's Name Patient's Relationship to Policy Moctezuma [facility] MEDICARE [employer]PP[employer] Jun 21, 2014 [id number] [phone] SILVIO BURKS PATIENT [facility] MEDICARE SUPPLEMEN BR[employer] MEDEX CORE Jun 21, 2014 [id number] KIMMIESILVIO LEWIS PATIENT MEDICARE (WNR) MEDICARE (M) PART A Oct 20, 2000 PART A [id number] SILVIO BURKS PATIENT MEDICARE (WNR) MEDICARE (M) PART B Oct 20, 2000 PART B [id number] SILVIO BURKS PATIENT MEDICARE (WNR) MEDICARE (M) PART A Oct 20, 2000 PART A [id number] [phone] SILVIO BURKS PATIENT MEDICARE (WNR) MEDICARE (M) PART B Oct 20, 2000 PART B [id number] SILVIO BURKS PATIENT Selected Encounter This section includes the information on record at [place] for the Encounter. Date/Time Encounter Type Encounter Description Reason Provider Source Feb 10, 2024 09:30 AM HEARING AID REPAIR/MODIFYIN G AUDIOLOGY ICD-10-CM Z46.1 Encounter for fitting and adjustment of hearing aid SENIORYENI L Maira Encounter Template Text not used by [place] Assessments - Encounter Diagnoses This section includes the primary and secondary diagnoses documented for the Encounter. Date/Time Primary/Secondary Diagnosis Diagnosis Name Provider Source Feb 10, 2024 09:34 AM PRIMARY Encounter for fitting and adjustment of hearing aid [facility]UD[facility]Y SCHAFFER [facility] Feb 10, 2024 09:34 AM SECONDARY Sensorineural hearing loss, bilateral AUDREY SCHAFFER [facility] [place] [facility] Social History: Smoking Status (Most current) and Tobacco Use (All prior to encounter date) This section includes the most current, and the historical, smoking and tobacco- related health factors from the [place] facility where the Encounter took place. Current Smoking Status This section includes the most current smoking, or tobacco-related health factor, from the [place] facility where the Encounter took place. Date/Time Current Smoking Status Comment Facil it December 09, 2023 09:30 AM [place]-TO[facility]AC[place] [facility] [place] [facility] Tobacco Use History This section includes a history of the smoking, or tobacco-related health factors, that were collected on or before the date of the Encounter. The data comes from the [place] facility where the Encounter took place. Date/Time Smoking Status/Tobac co Use Comment Facility December 09, 2023 09:30 AM [place]-TOBACCO QUIT 15 YRS OR MORE [facility] [place] [facility] December 12, 2022 09:00 AM [facility]-TOBACCO FORMER USER [facility] [place] [facility] December 12, 2022 09:00 AM [place]-TOBACCO QUIT 15 YRS OR MORE [facility] [place] [facility] December 13, 2021 09:00 AM VA-TOBACCO FORMER USER [facility] [place] [facility] December 13, 2021 09:00 AM [place]-TOBACCO QUIT 15 YRS OR MORE [facility] [place] [facility] December 13, 2020 09:00 AM VA-TOBACCO FORMER USER [facility] [place] [facility] December 13, 2020 09:00 AM VA-TOBACCO QUIT 15 YRS OR MORE [facility] [place] [facility] Oct 30, 2019 12:52 PM VA-TOBACCO FORMER USER [facility] [place] [facility] Oct 30, 2019 12:52 PM VA-TOBACCO QUIT 15 YRS OR MORE [facility] [place] [facility] Nov 14, 2018 09:05 AM VA-TOBACCO NEVER USED [facility] [place] [facility] Dec 20, 2017 02:24 PM QUIT TOBACCO USE > 7 YEARS AGO [facility] [place] [facility] November 24, 2016 09:02 AM QUIT TOBACCO USE > 7 YEARS AGO pt state he quit 30 yrs ago. [facility] [place] [facility] Oct 01, 2015 08:55 AM QUIT TOBACCO USE > 7 YEARS AGO PT STATES HE QUIT 25 YRS AGO [facility] [place] [facility] Jul 27, 2009 11:15 AM QUIT TOBACCO USE > 7 YEARS AGO [facility] [place] [facility] Encounter Notes: All associated encounter notes This section contains the clinical notes associated to the Encounter. Date/Time Encounter Note(s) Provider Source Feb 10, 2024 07:50 AM AUDIOLOGY NOTE: [facility] TITLE: AUDIOLOGY [facility] TITLE: AUDIOLOGY NOTE DATE OF NOTE: FEB 10, 2024@07:50 ENTRY DATE: FEB 10, 2024@07:50:33 AUTHOR: GAIL SCHAFFER COSIGNER: YENI DEWITT URGENCY: STATUS: COMPLETED February 10, 2024 History/Background: was seen for a hearing aid follow up, unaccompanied. scheduled today's appointment requesting new tubes for his hearing aids. reported the left tube broke in two pieces and has used scotch tape to hold it together. Hearing aids: [employer]rike Evolv AI BTEs Serial Numbers: [id number] Battery size: 13 Date Issued: 06/27/2022 Hearing aid check: Both hearing aids were cleaned and checked. Replaced size 2 thin tube left and size 3 thin tube right and narendra covers. Biologic check was good. Plan: [place] will follow up as needed. /fermin/ GAIL SCHAFFER [facility] [employer] Signed: 02/10/2024 09:35 /fermin/ JULI BONILLA, [facility]-A STAFF BEAD PREPARER Cosigned: 02/10/2024 09:45 GAIL SCHAFFER [facility]
--- OUTSIDE RECORDS SUMMARY | 2024-11-27 10:39 | XMS_ITS ---
Author Organization Doroteo Smith III, MD Address [address] [facility] [place] [address] Care Team Providers Care Physical Therapist Name Role Phone Doroteo Smith Primary Care Provider Allergies Allergen (clinical drug [...] Date Provider Diagnosis Doroteo Smith III, MD [address] [place] [address] [address] [place], [place] [phone] 06/15/2024 Doroteo Smith Hypertension I10 ; Atherosclerotic heart disease of [place] coronary artery without angina pectoris I25.10 ; [...] needed. 06/15/2024 Atherosclerotic hear t disease of [place] coronary artery without angina pectoris (ICD-10 - I25.10) He denies any angina since his stents were inserted. He is seeing the production director regularly. He has had no disturbance of [...] be continued and he will see the silica spray mixer regularly. 06/15/2024 Right carotid bruit (ICD-10 - [...] months, Reason: OV, Routine checkup Provider Name:Doroteo Smith, 02/08/2025 02:45:00 PM, [address] [place] [address] [address], [place], [phone], Provider Name:Doroteo Smith, 06/21/2025 02:00:00 PM, [address] [place] [address] [address], [place], [phone], Progress Notes * KARLADoroteo LDOB:1935 (88 yo M)Acc No.[id number]:06/15/2024 Progress Notes Patient:?Doroteo ACOSTA Provider:?Doroteo Smith MD :1935???Age:88 Y???Sex:Male Dell e:06/15/2024 Address:[address] [place] [address] NILA SAUCEDO [id number] Subjective: * Chief Complaints: * ???Annual Exam * HPI: ???Depression Screening:?PHQ-9?Little interest or pleasure in doing things?Not at all ?Feeling down, depressed, or hopeless?Not at all ?Trouble falling or staying asleep, or sleeping too much?Several days ?Feeling tired or having little energy?Not at all ?Poor appetite or overeating?Not at all ?Feeling bad about yourself or that you are a failure, or have let yourself or your family down?Not at all ?Trouble concentrating on things, such as reading the newspaper or watching television?Not at all ?Moving or speaking so slowly that other people could have noticed; or the opposite, being so fidgety or restless that you have been moving around a lot more than usual?Not at all ?Thoughts that you would be better off or of hurting yourself in some way?Not at all ?Total Score?1 ?Interpretation?Minimal Depression ???Fall Risk Screening:?Fall History?Have you had any falls with injury in the past year??Yes ?Have you had two or more falls in the past year??Yes ?Fall Risk Assessment:?No falls in the past year ???COVID-19 Screening:?Questions?Have you experienced fever, chills, cough, sore throat, shortness of breath, difficulty breathing, muscle aches, loss of taste or smell??No ?Have you been exposed to the virus within the last 10 days??No ?Have you travelled internationally in the last 10 days??No ?Have you been exposed to COVID-19 in the past??No ???SDOH Questions:?SDOH Questions?In the past year have you been worried about losing your housing??No ?In the past year have you or any family members you live with been unable to get any of the following when it was really needed? Check all that apply:?None ???:? The patient, an 88-year-old male, reported that his legs have been feeling better since he started taking cholesterol pills. He mentioned that he takes the medication daily around 2:30 PM. He also reported that he sees his production director once a year and is currently stable. [...] to have another one extracted soon. * ROS:?General/Constitutional:?pain?only normal aches and pains.?Chills?denies.?Fatigue?admits.?Fever?denies.?ENT:?Decreased hearing?in both ears.?Respiratory:?Denies?Chest pain.?Cough?denies.?Cardiovascular:?Chest pain with exertion?denies.?Dyspnea on exertion?denies.?Shortness of breath?with exertion.?Gastrointestinal:?Constipation?occasional.?Decreased appetite?denies.?Diarrhea?denies.?Heartburn?denies.?Nausea?denies.?Rectal bleeding?denies.?Vomiting?denies.?Hematology:?bruising?denies.?petechiae?denies.?Swollen glands?none have been noted.?Genitourinary:?Frequent urination?twice a night.?Musculoskeletal:?Muscle aches?denies.?Painful joints?denies.?Sciatica?denies.?Weakness?denies.?Skin:?Itching?denies.?Rash?denies.?Skin lesion(s)?denies.?Neurologic:?Difficulty speaking?denies.?Dizziness?denies.?Headache?denies.?Low back pain?denies.?Psychiatric:?Depressed mood?denies.? * Medical History:? * Surgical History:?Cardiac ca theterization, severe disease left main, LAD, left circumflex, stented 2007Stents inserted both iliac arteries for claudication Coronary artery Stent [facility] at [facility] Dr. Maldonado 06/08/21No history * Hospitalization/Major Diagno stic Procedure:?No history * Family History:?Father: dece ased 52 yrs, Pancreatic cancer.?Mother: 75 yrs, Coronary artery disease, myocardial infarction, stroke.?Children: alive.? His father at the age of 52 [...] substance use disorder, or addictions. * Social History:?Tobacco Use:?Tobacco Use/Smoking?.?Tobacco Control (Standard)?Tobacco use:?Former smoker ?How long has it been since you last smoked??Greater than 10 years ?Additional Findings: Tobacco non-user?Ex-cigarette smoker ???Drugs/Alcohol:?Drugs?Have you used drugs other than those for medical reasons in the past 12 months??No ???Drug/Alcohol:?AUDIT-C (Standard)?Did you have a drink containing alcohol in the past year??No ?Points?0 ?Interpretation?Negative ???He was born in [place], [place]. He has been to Monica and for 57 years. She is 79 years old and is in good health. 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 He continues to work with. 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 He served in the [employer]. The patient lives with his . He does not smoke. 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 * Medications:?TakingSimvastat in 40 MG Tablet as directed Orally Once [...] reviewed and reconciled with the patient * Allergies:?No Known Drug All ergyno[Allergies Verified] Objective: * Vitals:?Ht: 66, Wt:164, BMI: 26.47, BP:122/73, HR:52, Temp:97.2, Ht-cm: 167.64, Wt-k.39. * ???Past Orders: Lab:[facility]. [facility] * Collection Date 03/30/2024 03/09/2024 [...] U/L) 87 (Ref Range: 39-117 U/L) Potassium 5.5?H (Ref Range: 3.3-5.1 mmol/L) 5.3?H (Ref Range: 3.3-5.1 mmol/L) 5.5?H (Ref Range: 3.3-5.1 mmol/L) Chloride 109?H (Ref Range: 96-108 mmol/L) 109?H (Ref Range: 96-108 mmol/L) 112?H (Ref Range: 96-108 mmol/L) Carbon Dioxide 25 (Ref Range: 22-29 mmol/L) 27 (Ref Range: 22-29 mmol/L) 27 (Ref Range: 22-29 mmol/L) Anion Gap 12 (Ref Range: 12-20) 10?L (Ref Range: 12-20) 10?L (Ref Range: 12-20) Blood Urea Nitrogen 44?H (Ref Range: 9-16 mg/dL) 40?H (Ref Range: 9-16 mg/dL) 41?H (Ref Range: 9-16 mg/dL) Creatinine 1.61?H (Ref Range: 0.5-1.4 mg/dL) 1.49?H (Ref Range: 0.5-1.4 mg/dL) 1.23 (Ref Range: 0.5-1.4 mg/dL) Estimated Glomerular Filt Rate 41 45 56 Glucose Fasting 95 (Ref Range: 60-99 mg/dL) 101?H (Ref Range: 60-99 mg/dL) 102?H (Ref Range: 60-99 mg/dL) Calcium 8.9 (Ref [...] (Ref Range: 4.8-10.8 X10*3/uL) Red Blood Count 3.89?L (Ref Range: 4.60-5.80 X10*6/uL) 4.10?L (Ref Range: 4.60-5.80 X10*6/uL) 3.94?L (Ref Range: 4.60-5.80 X10*6/uL) Hemoglobin 12.2?L (Ref Range: 14.0-18.0 g/dl) 12.8?L (Ref Range: 14.0-18.0 g/dl) 12.3?L (Ref Range: 14.0-18.0 g/dl) Hematocrit 38.0?L (Ref Range: 42.0-52.0 %) 40.6?L (Ref Range: 42.0-52.0 %) 38.1?L (Ref Range: 42.0-52.0 %) Mean Corpuscular Volume 97.7 (Ref Range: 80.0-98.0 fL) 99.0?H (Ref Range: 80.0-98.0 fL) 96.7 (Ref Range: [...] Range: 45-73 %) Imm Gran Pct Auto 0.6?H (Ref Range: 0.0-0.4 %) 0.4 (Ref Range: 0.0-0.4 %) 0.4 (Ref Range: 0.0-0.4 %) Lymphocytes Percent Auto 18.6?L (Ref Range: 20-40 %) 23.2 (Ref Range: 20-40 %) 22.3 (Ref Range: 20-40 %) Monocytes Percent Auto 9.6 (Ref Range: 2-11 %) 7.7 (Ref Range: 2-11 %) 7.5 (Ref Range: 2-11 %) Eosinophils Percent Auto 4.7?H (Ref Range: 0-4 %) 4.0 (Ref Range: 0-4 %) 5.1?H (Ref Range: 0-4 %) Basophils Percent Auto 1.0 (Ref Range: 0-2 %) 0.9 (Ref Range: 0-2 %) 1.1 (Ref Range: 0-2 %) NRBC Pct Auto 0.0 (Ref Range: 0.0-0.2 /100WBC) 0.0 (Ref Range: 0.0-0.2 /100WBC) 0.0 (Ref Range: 0.0-0.2 /100WBC) Neutrophils Absolute Auto 5.2 (Ref Range: 2.0-8.3 x10*3/uL) 5.1 (Ref Range: 2.0-8.3 x10*3/uL) 5.0 (Ref Range: 2.0-8.3 x10*3/uL) Imm Gran Abs Auto 0.05?H (Ref Range: 0.00-0.03 X10*3/uL) 0.03 (Ref Range: [...] <150 mg/dL) 144 (Ref Range: <150 mg/dL) 150?H (Ref Range: <150 mg/dL) Cholesterol 115 (Ref Range: <200 mg/dL) 133 (Ref Range: <200 mg/dL) 137 (Ref Range: <200 mg/dL) LDL Cholesterol Calculated 56 (Ref Range: <100 mg/dL) 63 (Ref Range: <100 mg/dL) 63 (Ref Range: <100 mg/dL) HDL Cholesterol 38?L (Ref Range: >40 mg/dL) 42 (Ref Range: [...] -) Neg Menstrating NR N/A * Examination: ???General Examination: ?GENERAL APPEARANCE:?pleasant, well nourished, well developed, in no acute distress, calm and relaxed, overweight, elderly man.?HEAD:?atraumatic, normocephalic.?EYES:?eomi, perrla, anicteric, conjugate.?EARS:?normal.?NOSE:?septum intact.?ORAL CAVITY:?normal, unremarkable.?NECK/THYROID:?no jugular venous distention, no carotid bruit, thyroid normal.?LYMPH NODES:?no enlarged lymph nodes,spleen normal.?SKIN:?no suspicious lesions, anicteric.?HEART:?no clicks, gallops, murmurs, or rubs, regular rhythm, S1, S2 normal, no s3, or vascular bruits.?LUNGS:?clear to auscultation .?BREASTS:??no masses palpable bilaterally.?ABDOMEN:?bowel sounds normal, no ascites, no organomegaly, no mass, overweight.?RECTAL EXAM:?not examined.?MUSCULOSKELETAL:?extremities unremarkable, no clubbing, cyanosis or edema.?PERIPHERAL PULSES:?Bilateral carotid bruits are present.?NEUROLOGIC:?alert and oriented, cranial nerves 2-12 grossly intact, deep tendon reflexes 2+ symmetrical, motor strength normal upper and lower extremities, sensory exam intact.?PSYCH:?alert, oriented, speech clear, cognitive function intact.? : ???Eyes:Normal, Throat: Normal, Lungs: Normal, Arteries in neck: Normal, Legs: No swelling, Hernia: No issues. ??? 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 He is seeing the production director regularly. He has had no disturbance of his rhythm. He feels well. He will see Dr. Maldonado of cardiology No change in his regimen is needed today.???2.?Hypertension - I10???Notes :His blood pressure is 122/73.. No change in his regimen was needed.???3.?Mixed hyperlipidemia - E78.2???Notes :His lipids are currently stable and no change in his regimen was needed.???4.?Overweight - E66.3???Notes :He has lost 4 pounds in his body mass index is now 26.47.? I suggested he stabilize his weight at this level and pursue adequate nutrition.???5.?Benign prostatic hyperplasia with lower urinary tract symptoms - N40.1???Notes :He rises from sleep twice a night to urinate.? We have discussed lifestyle modifications he could make to reduce nocturia.???6.?Former smoker - Z87.891???Notes :He has a planned to prevent relapse and times of stress and illness.???7.?GERD without esophagitis - K21.9???Notes :He was continued on his current regimen. He denies any recent episodes of heartburn.???8.?Peripheral vascular disease - I73.9???Notes :He denies any recent change in claudication or TIA symptoms.His carotid bruits are unchanged.? 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 He has known aortic stenosis seen on a recent echocardiogram.? An ultrasound of the carotid arteries has been ordered to assess the possibility of carotid stenosis.??? Plan: * Treatment: 2.?Mixed hyperlipidemia?LAB: PROFILE, RANDOM (COMPREHENSIVE METABOLIC) ?LAB: PSA, TOTAL ?LAB: CBC WITH AUTO DIFF ?LAB: Vitamin D 25-OH Total 3.?Overweight?LAB: PROFILE, RANDOM (COMPREHENSIVE METABOLIC) ?LAB: PSA, TOTAL ?LAB: CBC WITH AUTO DIFF ?LAB: Vitamin D 25-OH Total 4.?Benign prostatic hyperpla linda with lower urinary tract symptoms?LAB: PROFILE, RANDOM (COMPREHENSIVE METABOLIC) ?LAB: PSA, TOTAL ?LAB: CBC WITH AUTO DIFF ?LAB: Vitamin D 25-OH Total 5.?Others? Continue Metoprolol Tartrate Tablet, 100 MG, TAKE 1 TABLET BY MOUTH TWICE DAILY DIRECTED;?Continue Valsartan Tablet, 40 MG, TAKE 1 TABLET BY MOUTH ONCE DAILY, Oral.?? * Labs:? * ?Lab: URINE DIP STICK (C ollection Date & Time - 06/15/2024) ? Value Reference Range ?SG 1.020 1.005 - 1.025 * ?pH 5.0 5.0 - 9.0 * ?MABLE Negative Negative - * ?NIT Negative Negative - * ?PRO 100 Negative - Trac e * ?GLU Negative Negative - * ?KET Negative Negative - * ?UBG 0.2 0.1 - 1.8 * ?NAIF Negative 0.2 - 1.3 * ?BLD Negative Negative - * Procedure Codes:?21760 URINE -NO MICRO * Preventive Medicine:? ??Counseling:?Care goal follow-up plan:?Counseling for abnormal BMI given?Yes ?Above Normal BMI Follow-up?Dietary management education, guidance, and counseling ?Smoking/Tobacco Use?Patient counseled on the dangers of tobacco use and urged to quit.?06/15/2024 * Follow Up:?3 Months, In a co uple of months (Reason: OV, Routine checkup) * Images: * Sign off status: Completed true * Provider:?Doroteo Smith MD Date:?05/23 Generated for Usha driver/Kirsty/eTransmitting on:?11/27/2024 10:39 AM EDT History and Physical Notes * [...] Fall Risk Assessment:: No falls in the COVID-19 Screening Questions Have you had any new onset fever, chills, cough, congestion, sore throat, shortness of breath, muscle aches?: No Have you been exposed to the virus with n the last 10 days?: No Have [...]
--- OUTSIDE RECORDS SUMMARY | 2024-11-27 10:39 | XMS_ITS | Patient Health Record ---
Author Organization Doroteo Smith III, MD Address [address] [place] [phone] Care Team Providers Care Associate Financial Analyst Name Role Phone Doroteo Smith Primary Care [...] 0.2 - 1.3 BLD Negative Negative - Complete Blood Count Auto Di ff Reviewed date:03/16/2024 11:00:50 AM Interpretation: Performing Lab:[facility], [address] [place] [phone] Notes/Report: White Blood Count 7.9 4.8-10.8 X10*3/uL Red Blood Count 3.94 4.60-5.80 X10*6/uL Hemoglobin 12.3 14.0-18.0 g/dl Hematocrit 38.1 42.0-52.0 % Mean Corpuscular Volume 96.7 80.0-98.0 fL Mean Corpuscular Hemoglobin 31.2 27.0-33.0 pg Mean Corpuscular HGB Conc 32.3 31.0-36.0 g/dl Red Cell Distribution Width 12.6 11.0-16.0 % Platelet Count 166 160-400 X10*3/uL Mean Platelet Volume 10.1 9.4-12.4 fL Neutrophils Percent Auto 63.6 45-73 % Imm Gran Pct Auto 0.4 0.0-0.4 % Lymphocytes Percent Auto 22.3 20-40 % Monocytes Percent Auto 7.5 2-11 % Eosinophils Percent Auto 5.1 0-4 % Basophils Percent Auto 1.1 0-2 % NRBC Pct Auto 0.0 0.0-0.2 /100WBC Neutrophils Absolute Auto 5.0 2.0-8.3 x10*3/u L Imm Gran Abs Auto 0.03 0.00-0.03 X10*3/uL Lymphocytes Absolute Auto 1.8 1.2-4.9 X10*3/u L Monocytes Absolute Auto 0.6 0.1-1.2 X10*3/uL Eosinophils Absolute Auto 0.4 0.0-0.4 X10*3/u L Basophils Absolute Auto 0.1 0.0-0.2 X10*3/uL NRBC Abs Auto 0.000 0.0-0.012 X10*3/uL Comprehensive [place]. Panel Fa st Reviewed date:03/16/2024 11:00:50 AM Interpretation: Performing Lab:[facility], [address] [place] [phone] Notes/Report: Sodium 141 135-145 mmol/L Potassium 5.3 3.3-5.1 mmol/L Chloride 109 96-108 mmol/L Carbon Dioxide 27 22-29 mmol/L Anion Gap 10 12-20 Blood Urea Nitrogen 40 9-16 mg/dL Creatinine 1.49 0.5-1.4 mg/dL Estimated Glomerular Filt Rate 45 NOTE: For -[place] individuals, multiply the result by 1.210. Chronic Kidney Disease: Estimated GFR < 60 mL/min/1.73m2 Severe Kidney Disease: Estimated GFR < 15 mL/min/1.73m2 Glucose Fasting 101 60-99 mg/dL A fasting glucose from 100-125 mg/dl is considered impaired (pre-diabetes). Calcium 9.1 8.4-10.2 mg/dL Bilirubin Total 0.4 0.0-1.0 mg/dL Aspartate Amino Transferase 20 5-37 U/L Alanine Aminotransferase 20 0-40 U/L Total Protein 6.8 6.5-8.0 g/dL Albumin Level 3.8 3.5-5.0 g/dL Alkaline Phosphatase 63 39-117 U/L Lipid Panel Reviewed date:03/16/2024 11:00:50 AM Interpretation: Performing Lab:[facility], [address] [place] [phone] Notes/Report: Triglycerides 150 <150 mg/dL Desirable Triglyceride: less than 150 mg/dL Borderline High Triglyceride 150-199 mg/dL High Triglyceride: 200-499 mg/dL Very High Triglyceride: greater than or equal to 5OO mg/dL Cholesterol 137 <200 mg/dL Desirable Cholesterol: less than 200 mg/dL Borderline High Cholesterol: 200-239 mg/dL High Cholesterol: greater than 239 mg/dL LDL Cholesterol Calculated 63 <100 mg/dL Desirable LDL: less than 100 mg/dL Near Optimal/Above Optimal LDL: 110-129 mg/dL Borderline High LDL: 130-159 mg/dL High LDL: 160-189 mg/dL Very High LDL: greater than or equal to 190 mg/dL HDL Cholesterol 44 >40 mg/dL Desirable HDL: greater than 40 mg/dL Note: This HDL assay may give artificially low results in patients with liver disease. Complete Blood Count Auto Di ff Reviewed date:04/05/2024 07:31:23 AM Interpretation: Performing Lab:[facility], [address] [place] [phone] Notes/Report: White Blood Count 8.1 4.8-10.8 X10*3/uL Red Blood Count 4.10 4.60-5.80 X10*6/uL Hemoglobin 12.8 14.0-18.0 g/dl Hematocrit 40.6 42.0-52.0 % Mean Corpuscular Volume 99.0 80.0-98.0 fL Mean Corpuscular Hemoglobin 31.2 27.0-33.0 pg Mean Corpuscular HGB Conc 31.5 31.0-36.0 g/dl Red Cell Distribution Width 12.3 11.0-16.0 % Platelet Count 173 160-400 X10*3/uL Mean Platelet Volume 10.2 9.4-12.4 fL Neutrophils Percent Auto 63.8 45-73 % Imm Gran Pct Auto 0.4 0.0-0.4 % Lymphocytes Percent Auto 23.2 20-40 % Monocytes Percent Auto 7.7 2-11 % Eosinophils Percent Auto 4.0 0-4 % Basophils Percent Auto 0.9 0-2 % NRBC Pct Auto 0.0 0.0-0.2 /100WBC Neutrophils Absolute Auto 5.1 2.0-8.3 x10*3/u L Imm Gran Abs Auto 0.03 0.00-0.03 X10*3/uL Lymphocytes Absolute Auto 1.9 1.2-4.9 X10*3/u L Monocytes Absolute Auto 0.6 0.1-1.2 X10*3/uL Eosinophils Absolute Auto 0.3 0.0-0.4 X10*3/u L Basophils Absolute Auto 0.1 0.0-0.2 X10*3/uL NRBC Abs Auto 0.000 0.0-0.012 X10*3/uL Comprehensive [place]. Panel Fa st Reviewed date:04/05/2024 07:31:23 AM Interpretation: Performing Lab:[facility], [address] [place] [phone] Notes/Report: Sodium 140 135-145 mmol/L Potassium 5.5 3.3-5.1 mmol/L Chloride 109 96-108 mmol/L Carbon Dioxide 25 22-29 mmol/L Anion Gap 12 12-20 Blood Urea Nitrogen 44 9-16 mg/dL Creatinine 1.61 0.5-1.4 mg/dL Estimated Glomerular Filt Rate 41 NOTE: For -[place] individuals, multiply the result by 1.210. Chronic Kidney Disease: Estimated GFR < 60 mL/min/1.73m2 Severe Kidney Disease: Estimated GFR < 15 mL/min/1.73m2 Glucose Fasting 95 60-99 mg/dL Calcium 8.9 8.4-10.2 mg/dL Bilirubin Total 0.4 0.0-1.0 mg/dL Aspartate Amino Transferase 21 5-37 U/L Alanine Aminotransferase 27 0-40 U/L Total Protein 6.7 6.5-8.0 g/dL Albumin Level 3.7 3.5-5.0 g/dL Alkaline Phosphatase 68 39-117 U/L Lipid Panel Reviewed date:04/05/2024 07:31:23 AM Interpretation: Performing Lab:[facility], [address] [place] [phone] Notes/Report: Triglycerides 144 <150 mg/dL Desirable Triglyceride: less than 150 mg/dL Borderline High Triglyceride 150-199 mg/dL High Triglyceride: 200-499 mg/dL Very High Triglyceride: greater than or equal to 5OO mg/dL Cholesterol 133 <200 mg/dL Desirable Cholesterol: less than 200 mg/dL Borderline High Cholesterol: 200-239 mg/dL High Cholesterol: greater than 239 mg/dL LDL Cholesterol Calculated 63 <100 mg/dL Desirable LDL: less than 100 mg/dL Near Optimal/Above Optimal LDL: 110-129 mg/dL Borderline High LDL: 130-159 mg/dL High LDL: 160-189 mg/dL Very High LDL: greater than or equal to 190 mg/dL HDL Cholesterol 42 >40 mg/dL Desirable HDL: greater than 40 mg/dL Note: This HDL assay may give artificially low results in patients with liver disease. Complete Blood Count Auto Di ff Reviewed date:06/09/2024 06:02:56 AM Interpretation: Performing Lab:[facility], [address] [place] [phone] Notes/Report: White Blood Count 8.0 4.8-10.8 X10*3/uL Red Blood Count 3.89 4.60-5.80 X10*6/uL Hemoglobin 12.2 14.0-18.0 g/dl Hematocrit 38.0 42.0-52.0 % Mean Corpuscular Volume 97.7 80.0-98.0 fL Mean Corpuscular Hemoglobin 31.4 27.0-33.0 pg Mean Corpuscular HGB Conc 32.1 31.0-36.0 g/dl Red Cell Distribution Width 12.1 11.0-16.0 % Platelet Count 161 160-400 X10*3/uL Mean Platelet Volume 10.2 9.4-12.4 fL Neutrophils Percent Auto 65.5 45-73 % Imm Gran Pct Auto 0.6 0.0-0.4 % Lymphocytes Percent Auto 18.6 20-40 % Monocytes Percent Auto 9.6 2-11 % Eosinophils Percent Auto 4.7 0-4 % Basophils Percent Auto 1.0 0-2 % NRBC Pct Auto 0.0 0.0-0.2 /100WBC Neutrophils Absolute Auto 5.2 2.0-8.3 x10*3/u L Imm Gran Abs Auto 0.05 0.00-0.03 X10*3/uL Lymphocytes Absolute Auto 1.5 1.2-4.9 X10*3/u L Monocytes Absolute Auto 0.8 0.1-1.2 X10*3/uL Eosinophils Absolute Auto 0.4 0.0-0.4 X10*3/u L Basophils Absolute Auto 0.1 0.0-0.2 X10*3/uL NRBC Abs Auto 0.000 0.0-0.012 X10*3/uL Lipid Panel Reviewed date:06/09/2024 06:02:56 AM Interpretation: Performing Lab:[facility], [address] [place] [phone] Notes/Report: Triglycerides 107 <150 mg/dL Desirable Triglyceride: less than 150 mg/dL Borderline High Triglyceride 150-199 mg/dL High Triglyceride: 200-499 mg/dL Very High Triglyceride: greater than or equal to 5OO mg/dL Cholesterol 115 <200 mg/dL Desirable Cholesterol: less than 200 mg/dL Borderline High Cholesterol: 200-239 mg/dL High Cholesterol: greater than 239 mg/dL LDL Cholesterol Calculated 56 <100 mg/dL Desirable LDL: less than 100 mg/dL Near Optimal/Above Optimal LDL: 110-129 mg/dL Borderline High LDL: 130-159 mg/dL High LDL: 160-189 mg/dL Very High LDL: greater than or equal to 190 mg/dL HDL Cholesterol 38 >40 mg/dL Desirable HDL: greater than 40 mg/dL Note: This HDL assay may give artificially low results in patients with liver disease. Complete Blood Count Auto Di ff Reviewed date:10/14/2024 08:58:28 AM Interpretation: Performing Lab:[facility], [address] [place] [phone] Notes/Report: White Blood Count 8.8 4.8-10.8 X10*3/uL Red Blood Count 4.36 4.60-5.80 X10*6/uL Hemoglobin 13.3 14.0-18.0 g/dl Hematocrit 41.7 42.0-52.0 % Mean Corpuscular Volume 95.6 80.0-98.0 fL Mean Corpuscular Hemoglobin 30.5 27.0-33.0 pg Mean Corpuscular HGB Conc 31.9 31.0-36.0 g/dl Red Cell Distribution Width 12.7 11.0-16.0 % Platelet Count 171 160-400 X10*3/uL Mean Platelet Volume 10.2 9.4-12.4 fL Neutrophils Percent Auto 64.3 45-73 % Imm Gran Pct Auto 0.3 0.0-0.4 % Lymphocytes Percent Auto 21.1 20-40 % Monocytes Percent Auto 9.9 2-11 % Eosinophils Percent Auto 3.5 0-4 % Basophils Percent Auto 0.9 0-2 % NRBC Pct Auto 0.0 0.0-0.2 /100WBC Neutrophils Absolute Auto 5.7 2.0-8.3 x10*3/u L Imm Gran Abs Auto 0.03 0.00-0.03 X10*3/uL Lymphocytes Absolute Auto 1.9 1.2-4.9 X10*3/u L Monocytes Absolute Auto 0.9 0.1-1.2 X10*3/uL Eosinophils Absolute Auto 0.3 0.0-0.4 X10*3/u L Basophils Absolute Auto 0.1 0.0-0.2 X10*3/uL NRBC Abs Auto 0.000 0.0-0.012 X10*3/uL Comprehensive Met. Panel Reviewed date:10/14/2024 08:58:28 AM Interpretation: Performing Lab:[facility], [address] [place] [phone] Notes/Report: Sodium 142 135-145 mmol/L Potassium 5.6 3.3-5.1 mmol/L Chloride 109 96-108 mmol/L Carbon Dioxide 28 22-29 mmol/L Anion Gap 11 12-20 Blood Urea Nitrogen 24 9-16 mg/dL Creatinine 1.29 0.5-1.4 mg/dL Estimated Glomerular Filt Rate 53 Chronic Kidney Disease: Estimated GFR < 60 mL/min/1.73m2 Severe Kidney Disease: Estimated GFR < 15 mL/min/1.73m2 Glucose Random 75 60-115 mg/dL Calcium 9.3 8.4-10.2 mg/dL Bilirubin Total 0.4 0.0-1.0 mg/dL Aspartate Amino Transferase 27 5-37 U/L Alanine Aminotransferase 20 0-40 U/L Total Protein 6.8 6.5-8.0 g/dL Albumin Level 3.7 3.5-5.0 g/dL Alkaline Phosphatase 77 39-117 U/L Prostate Specific Antigen Reviewed date:10/14/2024 08:58:28 AM Interpretation: Performing Lab:[facility], [address] [place] [phone] Notes/Report: Prostate Specific Antigen 0.67 <0.05-4.0 ng/mL PSA methodology: Sears Alinity i Chemiluminescent Microparticle Immunoassay (CMIA) Vitamin D 25-OH Total Reviewed date:10/14/2024 08:58:28 AM Interpretation: Performing Lab:[facility], [address] [place] [phone] Notes/Report: Vitamin D 25-OH Total 59.6 >30 ng/mL Health Based Reference Values* < 20 ng/mL Deficient 20-30 ng/mL Insufficient > 30 ng/mL Sufficient *Aldair LOPEZ. N Engl J Med. 2007;357:266-280 There is no well-established upper level of normal vitamin D levels. Some laboratories use 50 ng/mL as an upper limit of normal. However, toxicity is patient-dependent and may occur at any level. Careful correlation with the patient's presentation is necessary and, if there is concern for vitamin D toxicity, treatment should be considered irrespective of the serum level. Care must be taken in interpreting Vitamin D results from different laboratories and methodologies. Published data demonstrated that results from patients undergoing hemodialysis may show a negative bias when tested with various automated 25-OH vitamin D assays when compared to LC-MS/MS. When testing samples from patients whose predominant form of Vitamin D is Vitamin D2, such as patients receiving Vitamin D2 supplementation, results that are subtherapeutic should be confirmed with another method such as LC-MS/MS. Reason For Referral No Information Medications Medication SIG (Take, Route, Frequency, Duration) Notes Start Date End Date Status Simvastatin 40 MG 1 tablet in the even ing Orally Once a day Active Metoprolol Tartrate 100 MG TAKE 1 TABLET BY MOUTH TWICE DAILY Orally Twice a day Active Aspirin 81 MG 1 tablet Orally Once a day Active Valsartan 40 MG TAKE 1 TABLET BY MARILIA TH ONCE DAILY Oral Active Ezetimibe 10 MG TAKE 1 TABLET BY MARILIA TH ONCE DAILY Oral Active Immunizations Vaccine Route Administration Date Status Comme nts Influenza no Preserv 3 and > Unknown 05/16/2015 Adminis tered COVID- 19 Vaccine Unknown 09/05/2020 Administered COVID- 19 Vaccine Unknown 05/20/2021 Administered Influenza no Preserv 3 and > Unknown 04/27/2017 Adminis tered Influenza no Preserv 3 and > Unknown 06/12/2016 Adminis tered FLuzone HD PF Unknown 04/28/2022 Administered FLuzone HD PF Unknown 03/12/2020 Administered COVID- 19 Vaccine Unknown 04/28/2022 Administered Influenza no Preserv 3 and > Unknown 05/10/2019 Adminis tered PCV13 Unknown 02/08/2016 Administered Influenza no Preserv 3 and > Unknown 04/16/2018 Adminis tered COVID PFIZER Unknown 11/11/2021 Administered FLuzone HD PF Unknown 04/09/2021 Administered COVID- 19 Vaccine Unknown 08/08/2020 Administered COVID-19 Moderna SPIKEVAX Unknown 05/20/2023 Administer ed Influenza High Dose Quadrivalent Unknown 05/20/2023 Adm inistered COVID-19 Moderna SPIKEVAX Unknown 05/20/2023 Administer ed Fluzone High-Dose (HD-IIV3) Unknown 06/12/2016 Administ ered Fluzone High-Dose (HD-IIV3) Unknown 05/10/2019 Administ ered Fluzone High-Dose (HD-IIV3) Unknown 04/27/2017 Administ ered Fluzone High-Dose (HD-IIV3) Unknown 05/16/2015 Administ ered COVID-19 Moderna SPIKEVAX Unknown 12/09/2023 Administer ed COVID Pfizer Bivalent Unknown 04/28/2022 Administered Fluzone High-Dose (HD-IIV3) Unknown 04/16/2018 Administ ered Influenza High Dose Quadrivalent Unknown 12/09/2023 Adm inistered COVID-19 Moderna SPIKEVAX Unknown 07/25/2024 Administer ed Fluzone High-Dose (HD-IIV3) Unknown 07/25/2024 Administ ered Social History Tobacco Use: Social History Observation [...] ast year? No Points 0 Interpretation Negative Problems Problem Type SNOMED Code ICD Code Onset Dates Problem Status W/U Status Risk Notes Problem [id number] 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 Problem 925676209 Overweight (E66.3) Active confirmed He remains overweight. He has gained 4 pounds. We reviiewed his diet and nutrition. We mmade a plan to lose weight at a rate of one half of a pound per week. Problem Hypertension (I10) Active confirmed His blood pressure was 113/58. No change in his regimen was necessary. He has been compliant with his medication. Problem [id number] Mixed hyperlipidemia (E78.2) Active confirmed His lipids are currently stable. No change in his regimen was needed. Problem 852409242 Atherosclerotic heart disease of [place] coronary artery without angina pectoris (I25.10) Active confirmed He denies any angina since his stents were inserted. He is seeing the graduate research assistant regularly. He has had no disturbance of his rhythm. He feels well. He will see Dr. Maldonado of cardiology No change in his regimen is needed today. Problem [id number] Low back pain (M54.5) Active confirmed For the time being this has resolved. Problem 033605483 Nocturia (R35.1) Active confirmed He admits to 2 episodes of nocturia per night. We discussed lifestyle modification to prevent this. Medication will be used if necessary. He did not wish to take more medication at this time. Problem [id number] GERD without esophagitis (K21.9) Active confirmed He was continue d on his current regimen. He denies any recent episodes of heartburn. Problem [id number] Peripheral vascular disease (I73.9) Active confirmed He denies any recent change in claudication or TIA symptoms.His carotid bruits are unchanged. He is up-to-date with carotid ultrasound. Problem [id number] Benign prostatic hyperplasia with lower urinary tract symptoms (N40.1) Active confirmed He rises from sleep twice a night to urinate. We have discussed lifestyle modifications he could make to reduce nocturia. Problem 687076639 Right carotid bruit (R09.89) Active confirmed There is a palpable pulse and he is asymptomatic. He has known aortic stenosis seen on a recent echocardiogram. An ultrasound of the carotid arteries has been ordered to assess the possibility of carotid stenosis. 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 Vital Signs Heart Rate 60 /min 10/19/2024 Temperature 97.2 degrees Fahrenheit 10/19/2024 Blood pressure diastolic 58 mm Hg 10/19/2024 Height 66 in 10/19/2024 Blood pressure systolic 113 mm Hg 10/19/2024 Weight 168 lbs 10/19/2024 BMI 27.11 kg/m2 10/19/2024 Encounters Encounter Location Date Provider Diagnosis Doroteo Smith III, MD [address] [place] [address] [place] [phone] 03/16/2024 Doroteo Smith Hypertension I10 ; M ixed hyperlipidemia E78.2 ; GERD without esophagitis K21.9 ; Low back pain M54.5 ; Peripheral vascular disease I73.9 ; Atherosclerotic heart disease of [place] coronary artery without angina pectoris I25.10 ; Overweight E66.3 and Former smoker Z87.891 Doroteo Smith III, MD [address] [place] [address] [place] [phone] 04/06/2024 Doroteo Smith Hypertension I10 ; M ixed hyperlipidemia E78.2 ; Overweight E66.3 ; Benign prostatic hyperplasia with lower urinary tract symptoms N40.1 ; Atherosclerotic heart disease of [place] coronary artery without angina pectoris I25.10 ; Peripheral vascular disease I73.9 and Former smoker Z87.891 Doroteo Smith III, MD [address] [place] [address] [place] [phone] 06/15/2024 Doroteo Smith Hypertension I10 ; Atherosclerotic heart disease of [place] coronary artery without angina pectoris I25.10 ; Mixed hyperlipidemia E78.2 ; Overweight E66.3 ; Benign prostatic hyperplasia with lower urinary tract symptoms N40.1 ; Former smoker Z87.891 ; GERD without esophagitis K21.9 ; Peripheral vascular disease I73.9 ; 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 both eyes H40.033 and Right carotid bruit R09.89 Doroteo Smith III, MD [address] [place] [address] [address] [phone] 10/19/2024 Doroteo Smith Hypertension I10 ; Atherosclerotic heart disease of [place] coronary artery without angina pectoris I25.10 ; Mixed hyperlipidemia E78.2 ; Overweight E66.3 ; GERD without esophagitis K21.9 ; Low back pain M54.5 ; Peripheral vascular disease I73.9 and Benign prostatic hyperplasia with lower urinary tract symptoms N40.1 Doroteo Smith III, MD [address] [place] [address] [address] [phone] 07/23/2024 Doroteo Smith Assessments Encounter Date Diagnosis (ICD Code) Assessment Notes T reatment Notes Treatment Clinical Notes 03/16/2024 Hypertension (ICD-10 - I10) His blood pressures in the normal range. No change in his regimen was needed. 03/16/2024 Mixed hyperlipidemia (ICD-10 - E78.2) His LDL is now 63 on the ezetimbe. His total cholesterol is 137. He has no side effects from his medication. No changes were made today. 04/06/2024 Hypertension (ICD-10 - I10) His blood pressures have been in the in the normal range. No change in his regimen was needed. 04/06/2024 Mixed hyperlipidemia (ICD-10 - E78.2) His lipids are currentlyy stable with an LDL below 70 and 63. 06/15/2024 Hypertension (ICD-10 - I10) His blood pressure is 122/73.. No change in his regimen was needed. 06/15/2024 Atherosclerotic hear t disease of [place] coronary artery without angina pectoris (ICD-10 - I25.10) He denies any angina since his stents were inserted. He is seeing the graduate research assistant regularly. He has had no disturbance of his rhythm. He feels well. He will see Dr. Maldonado of cardiology No change in his regimen is needed today. 10/19/2024 Hypertension (ICD-10 - I10) His blood pressure was 113/58. No change in his regimen was necessary. He has been compliant with his medication. 10/19/2024 Atherosclerotic hear t disease of [place] coronary artery without angina pectoris (ICD-10 - I25.10) He denies any angina since his stents were inserted. He is seeing the graduate research assistant regularly. He has had no disturbance of his rhythm. He feels well. He will see Dr. Maldonado of cardiology No change in his regimen is needed today. 03/16/2024 GERD without esophagitis (ICD-10 - K21.9) He was continued on his current regimen. He denies any recent episodes of heartburn. 04/06/2024 Overweight (ICD-10 - E66.3) His weight is stable. 06/15/2024 Mixed hyperlipidemia (ICD-10 - E78.2) His lipids are currently stable and no change in his regimen was needed. 10/19/2024 Mixed hyperlipidemia (ICD-10 - E78.2) His lipids are currently stable. No change in his regimen was needed. 03/16/2024 Low back pain (ICD-1 0 - M54.5) For the time being this has resolved. 04/06/2024 Benign prostatic hyperplasia with lower urinary tract symptoms (ICD-10 - N40.1) He rises from sleep once a night to urinate. We have discussed lifestyle modification as a way to reduce nocturia. 06/15/2024 Overweight (ICD-10 - E66.3) He has lost 4 pounds in his body mass index is now 26.47. I suggested he stabilize his weight at this level and pursue adequate nutrition. 10/19/2024 Overweight (ICD-10 - E66.3) He remains overweight. He has gained 4 pounds. We reviiewed his diet and nutrition. We mmade a plan to lose weight at a rate of one half of a pound per week. 03/16/2024 Peripheral vascular disease (ICD-10 - I73.9) He denies any recent change in claudication or TIA symptoms. 04/06/2024 Atherosclerotic hear t disease of [place] coronary artery without angina pectoris (ICD-10 - I25.10) He denies any angina since his stents were inserted. He is seeing the graduate research assistant regularly. He has had no disturbance of his rhythm. He feels well. He will see Dr. Maldonado of cardiology No change in his regimen is needed today. 06/15/2024 Benign prostatic hyperplasia with lower urinary tract symptoms (ICD-10 - N40.1) He rises from sleep twice a night to urinate. We have discussed lifestyle modifications he could make to reduce nocturia. 10/19/2024 GERD without esophagitis (ICD-10 - K21.9) He was continued on his current regimen. He denies any recent episodes of heartburn. 03/16/2024 Atherosclerotic hear t disease of [place] coronary artery without angina pectoris (ICD-10 - I25.10) He denies any angina since his stents were inserted. He is seeing the graduate research assistant regularly. He has had no disturbance of his rhythm. He feels well. He will see Dr. Maldonado of cardiology No change in his regimen is needed today. 04/06/2024 Peripheral vascular disease (ICD-10 - I73.9) He denies any recent change in claudication or TIA symptoms. 06/15/2024 Former smoker (ICD-1 0 - Z87.891) He has a planned to prevent relapse and times of stress and illness. 10/19/2024 Low back pain (ICD-1 0 - M54.5) For the time being this has resolved. 03/16/2024 Overweight (ICD-10 - E66.3) His weight is stable with a body mass index at 27. We discussed a diet plan that would stabilize his weight at this level. 04/06/2024 Former smoker (ICD-1 0 - Z87.891) He has a planned to prevent relapse and times of stress and illness. 06/15/2024 GERD without esophagitis (ICD-10 - K21.9) He was continued on his current regimen. He denies any recent episodes of heartburn. 10/19/2024 Peripheral vascular disease (ICD-10 - I73.9) He denies any recent change in claudication or TIA symptoms.His carotid bruits are unchanged. He is up-to-date with carotid ultrasound. 03/16/2024 Former smoker (ICD-1 0 - Z87.891) He has a planned to prevent relapse and times of stress and illness. 06/15/2024 Peripheral vascular disease (ICD-10 - I73.9) He denies any recent change in claudication or TIA symptoms.His carotid bruits are unchanged. He is up-to-date with carotid ultrasound. 10/19/2024 Benign prostatic hyperplasia with lower urinary tract symptoms (ICD-10 - N40.1) He rises from sleep twice a night to urinate. We have discussed lifestyle modifications he could make to reduce nocturia. 06/15/2024 Narrow angle glaucom a suspect of both eyes (ICD-10 - H40.033) His ocular medications will be continued and he will see the biomedical equipment specialist regularly. 06/15/2024 Right carotid bruit (ICD-10 - R09.89) There is a palpable pulse and he is asymptomatic. He has known aortic stenosis seen on a recent echocardiogram. An ultrasound of the carotid arteries has been ordered to assess the possibility of carotid stenosis. Plan Of Treatment Pending Test Test Name Order Date PROFILE, FASTING (COMPREHENSIVE METABOLI C) 05/28/2022 PROFILE, FASTING (COMPREHENSIVE METABOLI C) 10/19/2024 PROFILE, FASTING (COMPREHENSIVE METABOLI C) 07/31/2021 PROFILE, FASTING (COMPREHENSIVE METABOLI C) 03/16/2024 PROFILE, FASTING (COMPREHENSIVE METABOLI C) 02/05/2022 PROFILE, FASTING (COMPREHENSIVE METABOLI C) 02/04/2023 PROFILE, FASTING (COMPREHENSIVE METABOLI C) 11/05/2022 PROFILE, FASTING (COMPREHENSIVE METABOLI C) 11/18/2023 PROFILE, FASTING (COMPREHENSIVE METABOLI C) 11/06/2021 PROFILE, FASTING (COMPREHENSIVE METABOLI C) 04/06/2024 PROFILE, FASTING (COMPREHENSIVE METABOLI C) 08/19/2023 PROFILE, RANDOM (COMPREHENSIVE METABOLIC ) 06/15/2024 LIPID PANEL 07/31/2021 LIPID PANEL 02/04/2023 LIPID PANEL 11/05/2022 LIPID PANEL 11/06/2021 PSA, TOTAL 11/05/2022 PSA, TOTAL 08/19/2023 PSA, TOTAL 02/05/2022 PSA, TOTAL 06/15/2024 CBC w DIFF 11/06/2021 CBC w DIFF 11/05/2022 CBC w DIFF 05/28/2022 CBC w DIFF 10/19/2024 CBC w DIFF 03/16/2024 CBC w DIFF 07/31/2021 CBC w DIFF 02/05/2022 CBC w DIFF 02/04/2023 CBC WITH AUTO DIFF 04/06/2024 CBC WITH AUTO DIFF 08/19/2023 CBC WITH AUTO DIFF 06/15/2024 CBC WITH AUTO DIFF 11/18/2023 Lipid Panel 11/18/2023 Lipid Panel 04/06/2024 Lipid Panel 05/28/2022 Lipid Panel 08/19/2023 Lipid Panel 10/19/2024 Lipid Panel 03/16/2024 Lipid Panel 02/05/2022 Vitamin D 25-OH Total 06/15/2024 Next Appt Details Provider Name:Doroteo Smith, 02/08/2025 02:45:00 PM, [address] [facility] [address], [place], [id number], Provider Name:Doroteo Smith, 06/21/2025 02:00:00 PM, [address] [place] [address] [address], [place], [id number], Insurance Providers Payer Name Payer Address Payer Phone Subscriber Number Group Number Insured Name Patient Relationship to Insured Coverage Start Date Coverage End Date MEDICARE NGS [address] [place] [phone] [id number] Doroteo Acosta Self - patient is the insured [facility] [address] [place], [place] [id number] [phone] [id number] Karla Doroteo Self - patient is the insured Medical (General) History Medical History History ICD Code Hypertension Hyperlipidemia GERD Chronic low back pain Benign prostatic hypertrophy Peripheral vascular disease Coronary artery disease, left main, LAD, occluded left circumflex 2006 Narrow angle glaucoma Presbyopia Former smoker Right carotid bruit Overweight Right carotid bruit The patient has a history of cholesterol issues and high blood pressure. He also has a slightly abnormal kidney function and has had a tooth extraction. Surgical History Surgery Date(Month/Year) No history Coronary artery Stent placement at [facility] Dr. Maldonado 06/08/21 Stents inserted both iliac arteries for claudication Cardiac catheterization, sev ere disease left main, LAD, left circumflex, stented 2006 Hospitalization History Reason Date(Month/Year) No history
--- OUTSIDE RECORDS SUMMARY | 2024-11-27 10:40 | XMS_ITS ---
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 Jun 21, 2014 [id number] SILVIO BURKS PATIENT [facility] MEDICARE SUPPLEMEN BRITTANY MEDEX CORE Jun 21, 2014 [id number] SILVIO BURKS PATIENT MEDICARE (WNR) MEDICARE (M) PART A Oct 20, 2000 PART A [id number] SILVIO BURKS PATIENT MEDICARE (WNR) MEDICARE (M) PART B Oct 20, 2000 PART B [id number] SILVIO BURKS PATIENT MEDICARE (WNR) MEDICARE (M) PART A Oct 20, 2000 PART A [id number] [phone] SILVIO BURKS PATIENT MEDICARE (WNR) MEDICARE (M) PART B Oct 20, 2000 PART B [id number] SILVIO BURKS PATIENT Selected Encounter This section includes the information on record at [place] for the Encounter. Date/Time Encounter Type Encounter Description Reason Provider Source December 09, 2023 09:30 AM OFFICE O/P EST LOW 20 MIN PRIMARY CARE/MEDICINE ICD-10-CM H91.90 Unspecified hearing loss, unspecified ear RGEGIE PEREZ IHE Encounter Template Text not used by [place] Assessments - Encounter Diagnoses This section includes the primary and secondary diagnoses documented for the Encounter. Date/Time Primary/Secondary Diagnosis Diagnosis Name Provider Source Jan 01, 2024 07:53 AM PRIMARY Unspecified hearing loss, unspecified ear [facility] Jan 01, 2024 07:53 AM SECONDARY Encounter for immunization [facility] Plan of Treatment: Future Appointments (+ 6 months) and Future Tests (+/- 45 days) The Plan of Treatment section includes future care activities for the patient from all [place] treatmentfacilities. This section includes future appointments and future orders which are active, pending or scheduled. Future Appointments This section includes appointments that were scheduled to occur 6 months from the date of the Encounter, up to a maximum of 20 appointments. The data comes from all [place] treatment facilities. Appointment Date/Time Appointment Type Appointme nt Facility Name Feb 10, 2024 09:30 AM AMBULATORY - [facility] Vital Signs: All taken on the encounter date This section contains inpatient and outpatient Vital Signs collected on the date of the Encounter. Date/Time Temperature Pulse Blood Pressure Respiratory Rate SP02 Pain Height Weight Body Mass Index Source December 09, 2023 09:24 AM 98.2 53 136/68 16 100 0 65 167.7 28 [facility] Immunizations: All administered on the encounter date This section contains immunizations associated to the Encounter. Immunization Series Date Issued Administered By Site Reaction Lot Number CVX Code Drug Fence Manufacture Supervisor Comment(s) Source COVID-19 (MODERNA), MRNA, LNP-S, PF, 50 MCG/0.5 ML (AGES 12+ YEARS) 4 December 09, 2023 AMALIA BILL LEFT DELTO ID [id number] [employer] ADMINISTERE [facility] [place] [facility] [place] [facility] INFLUENZA, HIGH-DOSE, QUADRIVALENT December 09, 2023 AMALIA BILL LEFT DELTO ID [id number] MARTY BAERNATHY Completed Series, ADMINISTERE D [place] [facility] [place] [place] [facility] Social History: Smoking Status (Most current) and Tobacco Use (All prior to encounter date) This section includes the most current, and the historical, smoking and tobacco- related health factors from the [place] facility where the Encounter took place. Current Smoking Status This section includes the most current smoking, or tobacco-related health factor, from the [place] facility where the Encounter took place. Date/Time Current Smoking Status Comment [facility] it December 09, 2023 09:30 AM VA-TOBACCO FORMER USER [place] [facility] [place] [facility] Tobacco Use History This section includes a history of the smoking, or tobacco-related health factors, that were collected on or before the date of the Encounter. The data comes from the [place] facility where the Encounter took place. Date/Time Smoking Status/Tobac co Use Comment Facility December 09, 2023 09:30 AM VA-TOBACCO QUIT 15 YRS OR MORE [place] [facility] [place] [facility] December 12, 2022 09:00 AM VA-TOBACCO FORMER USER [place] [facility] [place] [facility] December 12, 2022 09:00 AM VA-TOBACCO QUIT 15 YRS OR MORE [place] [facility] [place] [facility] December 13, 2021 09:00 AM VA-TOBACCO FORMER USER [facility] [place] [facility] December 13, 2021 09:00 AM VA-TOBACCO QUIT 15 YRS OR MORE [place] [facility] [place] [facility] December 13, 2020 09:00 AM VA-TOBACCO FORMER USER [place] [facility] [place] [facility] December 13, 2020 09:00 AM VA-TOBACCO QUIT 15 YRS OR MORE [facility] [place] [facility] Oct 30, 2019 12:52 PM VA-TOBACCO FORMER USER [facility] [place] [facility] Oct 30, 2019 12:52 PM VA-TOBACCO QUIT 15 YRS OR MORE [place] [facility] [place] [facility] Nov 14, 2018 09:05 AM VA-TOBACCO NEVER USED [facility] Dec 20, 2017 02:24 PM QUIT TOBACCO USE > 7 YEARS AGO [facility] November 24, 2016 09:02 AM QUIT TOBACCO USE > 7 YEARS AGO pt state he quit 30 yrs ago. [facility] Oct 01, 2015 08:55 AM QUIT TOBACCO USE > 7 YEARS AGO PT STATES HE QUIT 25 YRS AGO [facility] Jul 27, 2009 11:15 AM QUIT TOBACCO USE > 7 YEARS AGO [facility] Encounter Notes: All associated encounter notes This section contains the clinical notes associated to the Encounter. Date/Time Encounter Note(s) Provider Source December 09, 2023 10:12 AM IMMUNIZATION NOTE: LOCAL TITLE: [place] IMMUNIZATION NOTE STANDARD TITLE: IMMUNIZATION NOTE DATE OF NOTE: DECEMBER 09, 2023@10:12:56 ENTRY DATE: DECEMBER 09, 2023@10:12:56 AUTHOR: MARGE BILL EXP COSIGNER: URGENCY: STATUS: COMPLETED Administered: INFLUENZA, HIGH-DOSE, QUADRIVALENT Date Administered: December 09, 2023 09:30 Series: Complete Fence Manufacture Supervisor: SANOFI PASTEUR Lot: [id number] Exp Date: Jan 19, 2024 ND: [id number] Admin Route/Site: INTRAMUSCULAR/LEFT DELTOID Dosage: 0.7mL Vaccine Information Statement(s): INFLUENZA(FLU) VACC(INACTIVATED OR RECOMBINANT)VIS Feb 24, 2021 (MEXICAN) Order By: Policy Administered By: Marge Bill /fermin/ MARGE BILL LPN LPN Signed: 12/09/2023 10:13 MAR[facility] BILL [facility] December 09, 2023 09:43 AM PHYSICIAN NOTE: LOCAL TITLE: MD NOTE STANDARD TITLE: PHYSICIAN NOTE DATE OF NOTE: DECEMBER 09, 2023@09:43 ENTRY DATE: DECEMBER 09, 2023@09:43:38 AUTHOR: REGGIE PEREZ EXP COSIGNER: URGENCY: STATUS: COMPLETED Patient Name: SILVIO BURKS VITALS: Patient temperature: 98.2 F [36.8 C] (12/09/2023 09:24) Blood pressure: 136/68 (12/09/2023 09:24) Patient height: 65 in [165.1 cm] (12/09/2023 09:24) Patient weight: 167.7 lb [76.07 kg] (12/09/2023:24) Patient BMI: BMI: 28.0 Patient pulse: 53 (12/09/2023 09:24) Patient respiration: 16 (12/09/2023 09:24) Patient Pulse Oximetry: 100% (12/09/2023:24) Pain Ratin (12/09/2023:) Active VA Medications: Active Outpatient Medications (including Supplies): Active Non-VA Medications Status 1) Non-VA ASPIRIN 81MG EC TAB 81MG BY MOUTH EVERY DAY ACTIVE 2) Non-VA LISINOPRIL 20MG TAB 20MG BY MOUTH TWICE DAILY ACTIVE 3) Non-VA SIMVASTATIN 80MG TAB 80MG BY MOUTH AT BEDTIME ACTIVE Remote Medications: No Active Remote Medications for this patient licensed direct 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 Smith [place] for audiology History of present illness Patient wears hearing aids for hard of hearing. He feels well today with no complaints. He is content with audiology care. Physical examination Well-developed well-nourished male no acute distress Ears without erythema or cerumen Assessment and plan: 1. Hard of hearing: Followed by audiology. Plan: Continue audiology. Follow-up 1 year Medication Reconciliation: Outpatient: Has the patient been taking medications as documented in the EMLR? YES: The patient has been taking medications as documented in the EMLR. Essential Medication List for Review used to complete this medication reconciliation. INCLUDED IN THIS LIST: Alphabetical list of active outpatient prescriptions dispensed from this [place] (local) and dispensed from another [place] or [facility] facility (remote) as well as inpatient orders (local, pending and active), local clinic medications, locally documented non-VA medications, and local prescriptions that have or been discontinued in the past 90 days. - All changes in medications, including all non-VA/Herbal/OTC medications were entered into CPRS. - If there were any medications the patient should no longer take, they were discontinued. - The patient/caregiver was instructed to update this list, discard old lists, and take this list to the next appointment, whether with a VA or non-VA provider. Td / Tdap Immunization: The patient declines to receive the recommended dose of Td/Tdap vaccine. Immunization: TD(ADULT) UNSPECIFIED FORMULATION Refusal Reason: PATIENT DECISION Patient refuses all immunization(s) in the Td group Date Documented: 12/09/23 09:58 Pneumococcal Conjugate Vaccine (PCV15/PCV20): Refuses PCV vaccine Immunization: PNEUMOCOCCAL CONJUGATE, UNSPECIFIED FORMULATION Refusal Reason: PATIENT DECISION Patient refuses all immunization(s) in the PneumoPCV group Date Documented: 12/09/23 09:59 /fermin/ Reggie Perez MD Staff Physician Signed: 12/09/2023 09:59 REGGIE PEREZ [place] [facility] [place] [facility] December 09, 2023 09:26 AM PREVENTIVE MEDICIN E NURSING NOTE: LOCAL TITLE: CLINICAL REMINDERS/NURSING STANDARD TITLE: PREVENTIVE MEDICINE NURSING NOTE DATE OF NOTE: DECEMBER 09, 2023@09:26 ENTRY DATE: DECEMBER 09, 2023@09:26:55 AUTHOR: MARGE BILL COSIGNER: URGENCY: STATUS: COMPLETED CLINICAL REMINDERS/NURSING Has ADDENDA Homelessness/Food Insecurity Screen: In the past 2 months, have you been living in stable housing that you own, rent, or stay in as part of a household? Yes - Living in stable housing. Are you worried or concerned that in the next 2 months you may NOT have stable housing that you own, rent, or stay in as part of a household? No - Not worried about housing near future The reports the following: Within the past 12 months, you worried whether your food would run out before you got money to buy more. Never true Within the past 12 months, the food you bought just didn't last and you didn't have money to get more. Never true Depression Screening: Perform PHQ-2 A PHQ-2 screen was performed. The score was 0 which is a negative screen for depression. Over the past two weeks, how often have you been bothered by the following problems? 1. Little interest or pleasure in doing things Not at all 2. Feeling down, depressed, or hopeless Not at all Falls & Incontinence Screen: Falls Screen: 4. No falls within the past year. Incontinence Screen No incontinence. Tobacco Use Screening: The patient is a former tobacco user. The patient quit fifteen or more years ago. Alcohol Use Screen (AUDIT-C): Alcohol Screen: SCREEN FOR ALCOHOL (AUDIT-C) An alcohol screening test (AUDIT-C) was negative (score=2). 1. How often did you have a drink containing alcohol in the past year? Consider a drink to be a 12 ounce can or bottle of regular beer, 8 ounces of malt liquor, a 5 ounce glass of table wine, or a 1.5 ounce shot of liquor (like scotch, gin, or vodka). Two to four times a month 2. How many drinks containing alcohol did you have on a typical day when you were drinking in the past year? Zero drinks 3. How often did you have six or more drinks on one occasion in the past year? Never Advance Directive Screen MH AD: Patient has an up-to-date Advance Directive at an outside, non-va facility and was asked to forward a copy to his/her clinician. Comment: will bring copy at next appointment Suicide Screen: C-SSRS Screening [place] Suicide Severity Rating Scale (C-SSRS) screener 1. Over the past month, have you wished you were or wished you could go to sleep and not wake up? No 2. Over the past month, have you had any actual thoughts of killing yourself? No 3. Over the past month, have you been thinking about how you might do this? Response not required due to responses to other questions. 4. Over the past month, have you had these thoughts and had some intention of acting on them? Response not required due to responses to other questions. 5. Over the past month, have you started to work out or worked out the details of how to kill yourself? Response not required due to responses to other questions. 6. If yes, at any time in the past month did you intend to carry out this plan? Response not required due to responses to other questions. 7. In your lifetime, have you ever done anything, started to do anything, or prepared to do anything to end your life (for example, collected pills, obtained a gun, gave away valuables, went to the roof but didn't jump)? No 8. If YES, was this within the past 3 months? Response not required due to responses to other questions. Sexual Orientation: The patient thinks of their sexual orientation as: Straight or Heterosexual /fermin/ MARGE BILL LPN LPN Signed: 12/09/2023 09:31 12/09/2023 ADDENDUM STATUS: COMPLETED COVID-19 Immunization: Moderna Monovalent (Spikevax) Administered: COVID-19 (MODERNA), MRNA, LNP-S, PF, 50 MCG/0.5 ML (AGES 12+ YEARS) Date Administered: December 09, 2023 09:30 Series: Series 4 Fence Manufacture Supervisor: [employer] Lot: [id number] Exp Date: Dec 28, 2023 NDC: [id number] Admin Route/Site: INTRAMUSCULAR/LEFT DELTOID Dosage: 0.5mL Vaccine Information Statement(s): COVID-19 MRNA VACCINE (12+ YRS) VACCINE VIS May 09, 2023 (MEXICAN) Order By: Policy Administered By: Marge Bill Vaccine administered without complications. /fermin/ MARGE BILL LPN LPN Signed: 12/09/2023 10:11 MARGE BILL [facility]
--- OUTSIDE RECORDS SUMMARY | 2024-11-27 10:40 | XMS_ITS ---
Author Organization Doroteo Smith III, MD Address [address] [facility] [place] [address] [place] [address] Care Team Providers Care Clothes Marker Name Role Phone Doroteo Smith Primary Care Provider [phone] Allergies Allergen (clinical drug ingredient) Drug/Non Drug Allergy documented on EMR Reaction Allergy Type Onset Date Status No Known Drug Allergy Unknown Drug Allergy Active REASON FOR VISIT Hypertension, GERD, Low back pain, Peripheral arterial disease, Coronary artery disease, Benign prostatic hypertrophy Medications Medication SIG (Take, Route, Frequency, Duration) [...] Additional Findings: Tobacco non-user Ex-cigaret te smoker Vital Signs Temperature 97.2 degrees Fahrenheit 10/20/19 25 Blood pressure systolic 113 mm Hg 10/20/19 25 Blood pressure diastolic 58 mm Hg 025 Heart Rate 60 /min 10/19/2024 Height 66 in 10/19/2024 Weight 168 lbs 10/19/2024 BMI 27.11 kg/m2 10/19/2024 Encounters Encounter Location Date Provider Diagnosis Doroteo Smith III, MD [address] [place] [address] [address] [place], [place] [id number] 10/19/2024 Doroteo Smith Hypertension I10 ; 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 No change in his regimen was necessary. He has been compliant with his medication. 10/19/2024 Atherosclerotic hear t disease of big sandy coronary artery without angina pectoris (ICD-10 - I25.10) He denies any angina since his stents were inserted. He is seeing the detective lieutenant regularly. He has had no disturbance of his rhythm. He feels well. He will see Dr. Maldonado of cardiology No change in his regimen is needed today. 10/19/2024 Mixed hyperlipidemia (ICD-10 - E78.2) His lipids are currently stable. No change in his regimen was needed. 10/19/2024 Overweight (ICD-10 - E66.3) He remains overweight. He has gained 4 pounds. We reviiewed his diet and nutrition. We mmade a plan to lose weight at a rate of one half of a pound per week. 10/19/2024 GERD without esophagitis (ICD-10 - K21.9) He was continued on his current regimen. He denies any recent episodes of heartburn. 10/19/2024 Low back pain (ICD-1 0 - M54.5) For the time being this has resolved. 10/19/2024 Peripheral vascular disease (ICD-10 - I73.9) He denies any recent change in claudication or TIA symptoms.His carotid bruits are unchanged. He is up-to-date with carotid ultrasound. 10/19/2024 Benign prostatic hyperplasia with lower urinary tract symptoms (ICD-10 - N40.1) He rises from sleep twice a night to urinate. We have discussed lifestyle modifications he could make to reduce nocturia. Plan Of Treatment Medication Medication Name Sig Start Date Stop Date Notes Simvastatin 40 MG 1 tablet in the even ing Orally Once a day Metoprolol Tartrate 100 MG TAKE 1 TABLET BY MOUTH TWICE DAILY Orally Twice a day Aspirin 81 MG 1 tablet Orally Once a day Valsartan 40 MG TAKE 1 TABLET BY MARILIA TH ONCE DAILY Oral Ezetimibe 10 MG TAKE 1 TABLET BY MARILIA TH ONCE DAILY Oral Pending Test Test Name Order Date PROFILE, FASTING (COMPREHENSIVE METABOLI C) 10/19/2024 CBC w DIFF 10/19/2024 Lipid Panel 10/19/2024 Next Appt Details Follow Up: 3-4 months, Reaso n: OV review labs Provider Name:Doroteo Smith, 02/08/2025 02:45:00 PM, [address] [place] [address] [address], [place], [phone], Provider Name:Doroteo Smith, 06/21/2025 02:00:00 PM, [address] [place] [address] [address], [place], [phone], Progress Notes * Doroteo ACOSTA LDOB:1935 (88 yo M)Acc No.[id number]:10/19/2024 Progress Notes Patient:?KARLA, Doroteo Smart Provider:?Doroteo Smith MD :1935???Age:88 Y???Sex:Male Dell e:10/19/2024 Address:[address] [place], [place] [id number] Subjective: * Chief Complaints: * ???HypertensionGERDLow back painPeripheral arterial diseaseCoronary artery diseaseBenign prostatic hypertrophy * HPI: ???COVID-19 Screening:?He returns for ongoing surveillance and management of numerous medical issues at the age of 88.? He is 89th birthday will soon be here.? He says his appetite is okay.? His back pain is stable and mild.? He has not had any palpitations or angina or syncope.? He has been compliant with all his medications.? He has several stents in his coronary arteries.? He can walk one quarter of a mile without claudication in having to stop.? The skin of his feet is intact.? He has no new complaints. ?Questions?Have you had any new onset fever, chills, cough, congestion, sore throat, shortness of breath, muscle aches??No * ROS:?General/Constitutional:?pain?Claudication and 1/4 mile.?Chills?denies.?Fatigue?admits.?Fever?denies.?ENT:?Decreased hearing?mild.?Respiratory:?Cough?denies.?Cardiovascular:?Chest pain with exertion?denies.?Dyspnea on exertion?denies.?Shortness of breath?with exertion.?Gastrointestinal:?Constipation?occasional.?Decreased appetite?denies.?Diarrhea?denies.?Heartburn?denies.?Nausea?denies.?Rectal bleeding?denies.?Vomiting?denies.?Hematology:?bruising?denies.?petechiae?denies.?Swollen glands?none have been noted.?Genitourinary:?Frequent urination?twice a night.?Musculoskeletal:?Muscle aches?denies.?Painful joints?Hips and knees.?Sciatica?denies.?Weakness?denies.?Skin:?Itching?denies.?Rash?denies.?Skin lesion(s)?denies.?Neurologic:?Difficulty speaking?denies.?Dizziness?denies.?Headache?denies.?Low back pain?that is chronic.?Psychiatric:?Depressed mood?denies.? * Medical History:? * Surgical History:?Cardiac ca theterization, severe disease left main, LAD, left circumflex, stented 2007Stents inserted both iliac arteries for claudication Coronary artery Stent placement at [facility] Dr. Maldonado 06/08/21No history * Hospitalization/Major Diagno [...] disorder, or addictions. * Social History:?Tobacco Use:?Tobacco Control (Standard)?Tobacco use:?Former smoker ?How long has it been since you last smoked??Greater than 10 years ?Additional Findings: Tobacco non-user?Ex-cigarette smoker ???He was born in [place], [place]. He has been to [place] and for 57 years. She is 79 years old and is in good health. 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 He continues to work with. 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 He served in the [employer]. The patient lives with his . He does not smoke. 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 * Medications:?TakingAspirin 8 1 MG Tablet Delayed Release 1 tablet Orally Once a day Valsartan 40 MG Tablet TAKE 1 TABLET BY MOUTH ONCE DAILY Oral Ezetimibe 10 MG Tablet TAKE 1 TABLET BY MOUTH ONCE DAILY Oral Metoprolol Tartrate 100 MG Tablet TAKE 1 TABLET BY MOUTH TWICE DAILY Orally Twice a day Simvastatin 40 MG Tablet 1 tablet in the evening Orally Once a day Medication List reviewed and reconciled with the patientTaking Aspirin 81 MG Tablet Delayed Release 1 tablet Orally Once a day Taking Valsartan 40 MG Tablet TAKE 1 TABLET BY MOUTH ONCE DAILY Oral Taking Ezetimibe 10 MG Tablet TAKE 1 TABLET BY MOUTH ONCE DAILY Oral Taking Metoprolol Tartrate 100 MG Tablet TAKE 1 TABLET BY MOUTH TWICE DAILY Orally Twice a day Taking Simvastatin 40 MG Tablet 1 tablet in the evening Orally Once a day Medication List reviewed and reconciled with the patient * Allergies:?No Known Drug All ergyno[Allergies Verified] Objective: * Vitals:?Ht: 66, Wt:168, BMI: 27.11, BP:113/58, HR:60, Temp:97.2, Ht-cm: 167.64, Wt-k.2. * ???Past Orders: Lab:Complete Blood Count Aut o Diff * Collection Date 10/12/2024 06/08/2024 03/30/2024 Collection Time 10:58 AM 09:49 AM 09:25 AM Order Date 10/12/2024 06/08/2024 03/30/2024 White Blood Count 8.8 (Ref Range: 4.8-10.8 X10*3/uL) 8.0 (Ref Range: 4.8-10.8 X10*3/uL) 8.1 (Ref Range: 4.8-10.8 X10*3/uL) Red Blood Count 4.36?L (Ref Range: 4.60-5.80 X10*6/uL) 3.89?L (Ref Range: 4.60-5.80 X10*6/uL) 4.10?L (Ref Range: 4.60-5.80 X10*6/uL) Hemoglobin 13.3?L (Ref Range: 14.0-18.0 g/dl) 12.2?L (Ref Range: 14.0-18.0 g/dl) 12.8?L (Ref Range: 14.0-18.0 g/dl) Hematocrit 41.7?L (Ref Range: 42.0-52.0 %) 38.0?L (Ref Range: 42.0-52.0 %) 40.6?L (Ref Range: 42.0-52.0 %) Mean Corpuscular Volume 95.6 (Ref Range: 80.0-98.0 fL) 97.7 (Ref Range: 80.0-98.0 fL) 99.0?H (Ref Range: 80.0-98.0 fL) Mean Corpuscular Hemoglobin 30.5 (Ref Range: 27.0-33.0 pg) 31.4 (Ref Range: 27.0-33.0 pg) 31.2 (Ref Range: 27.0-33.0 pg) Mean Corpuscular HGB Conc 31.9 (Ref Range: 31.0-36.0 g/dl) 32.1 (Ref Range: 31.0-36.0 g/dl) 31.5 (Ref Range: 31.0-36.0 g/dl) Red Cell Distribution Width 12.7 (Ref Range: 11.0-16.0 %) 12.1 (Ref Range: 11.0-16.0 %) 12.3 (Ref Range: 11.0-16.0 %) Platelet Count 171 (Ref Range: 160-400 X10*3/uL) 161 (Ref Range: 160-400 X10*3/uL) 173 (Ref Range: 160-400 X10*3/uL) Mean Platelet Volume 10.2 (Ref Range: 9.4-12.4 fL) 10.2 (Ref Range: 9.4-12.4 fL) 10.2 (Ref Range: 9.4-12.4 fL) Neutrophils Percent Auto 64.3 (Ref Range: 45-73 %) 65.5 (Ref Range: 45-73 %) 63.8 (Ref Range: 45-73 %) Imm Gran Pct Auto 0.3 (Ref Range: 0.0-0.4 %) 0.6?H (Ref Range: 0.0-0.4 %) 0.4 (Ref Range: 0.0-0.4 %) Lymphocytes Percent Auto 21.1 (Ref Range: 20-40 %) 18.6?L (Ref Range: 20-40 %) 23.2 (Ref Range: 20-40 %) Monocytes Percent Auto 9.9 (Ref Range: 2-11 %) 9.6 (Ref Range: 2-11 %) 7.7 (Ref Range: 2-11 %) Eosinophils Percent Auto 3.5 (Ref Range: 0-4 %) 4.7?H (Ref Range: 0-4 %) 4.0 (Ref Range: 0-4 %) Basophils Percent Auto 0.9 (Ref Range: 0-2 %) 1.0 (Ref Range: 0-2 %) 0.9 (Ref Range: 0-2 %) NRBC Pct Auto 0.0 (Ref Range: 0.0-0.2 /100WBC) 0.0 (Ref Range: 0.0-0.2 /100WBC) 0.0 (Ref Range: 0.0-0.2 /100WBC) Neutrophils Absolute Auto 5.7 (Ref Range: 2.0-8.3 x10*3/uL) 5.2 (Ref Range: 2.0-8.3 x10*3/uL) 5.1 (Ref Range: 2.0-8.3 x10*3/uL) Imm Gran Abs Auto 0.03 (Ref Range: 0.00-0.03 X10*3/uL) 0.05?H (Ref Range: 0.00-0.03 X10*3/uL) 0.03 (Ref Range: 0.00-0.03 X10*3/uL) Lymphocytes Absolute Auto 1.9 (Ref Range: 1.2-4.9 X10*3/uL) 1.5 (Ref Range: 1.2-4.9 X10*3/uL) 1.9 (Ref Range: 1.2-4.9 X10*3/uL) Monocytes Absolute Auto 0.9 (Ref Range: 0.1-1.2 X10*3/uL) 0.8 (Ref Range: 0.1-1.2 X10*3/uL) 0.6 (Ref Range: 0.1-1.2 X10*3/uL) Eosinophils Absolute Auto 0.3 (Ref Range: 0.0-0.4 X10*3/uL) 0.4 (Ref Range: 0.0-0.4 X10*3/uL) 0.3 (Ref Range: 0.0-0.4 X10*3/uL) Basophils Absolute Auto 0.1 (Ref Range: 0.0-0.2 X10*3/uL) 0.1 (Ref Range: 0.0-0.2 X10*3/uL) 0.1 (Ref Range: 0.0-0.2 X10*3/uL) NRBC Abs Auto 0.000 (Ref Range: 0.0-0.012 X10*3/uL) 0.000 (Ref Range: 0.0-0.012 X10*3/uL) 0.000 (Ref Range: 0.0-0.012 X10*3/uL) * Lab:Comprehensive Met. Panel * Collection Date 10/12/2024 08/27/2022 Collection Time 10:58 AM 09:26 AM Order Date 10/12/2024 08/27/2022 Sodium 142 (Ref Range: 135-145 mmol/L) 143 (Ref Range: 135-145 mmol/L) Bilirubin Total 0.4 (Ref Range: 0.0-1.0 mg/dL) 0.5 (Ref Range: 0.0-1.0 mg/dL) Aspartate Amino Transferase 27 (Ref Range: 5-37 U/L) 23 (Ref Range: 5-37 U/L) Alanine Aminotransferase 20 (Ref Range: 0-40 U/L) 22 (Ref Range: 0-40 U/L) Total Protein 6.8 (Ref Range: 6.5-8.0 g/dL) 6.4?L (Ref Range: 6.5-8.0 g/dL) Albumin Level 3.7 (Ref Range: 3.5-5.0 g/dL) 3.7 (Ref Range: 3.5-5.0 g/dL) Alkaline Phosphatase 77 (Ref Range: 39-117 U/L) 89 (Ref Range: 39-117 U/L) Potassium 5.6?H (Ref Range: 3.3-5.1 mmol/L) 4.9 (Ref Range: 3.3-5.1 mmol/L) Chloride 109?H (Ref Range: 96-108 mmol/L) 108 (Ref Range: 96-108 mmol/L) Carbon Dioxide 28 (Ref Range: 22-29 mmol/L) 28 (Ref Range: 22-29 mmol/L) Anion Gap 11?L (Ref Range: 12-20) 12 (Ref Range: 12-20) Blood Urea Nitrogen 24?H (Ref Range: 9-16 mg/dL) 23?H (Ref Range: 9-16 mg/dL) Creatinine 1.29 (Ref Range: 0.5-1.4 mg/dL) 1.31 (Ref Range: 0.5-1.4 mg/dL) Estimated Glomerular Filt Rate 53 52 Glucose Random 75 (Ref Range: 60-115 mg/dL) 91 (Ref Range: 60-115 mg/dL) Calcium 9.3 (Ref Range: 8.4-10.2 mg/dL) 9.0 (Ref Range: 8.4-10.2 mg/dL) * Lab:Prostate Specific Antige n * Collection Date 10/12/2024 11/11/2023 01/28/2023 Collection Time 10:58 AM 08:59 AM 10:20 AM Order Date 10/12/2024 11/11/2023 01/28/2023 Prostate Specific Antigen 0.67 (Ref Range: <0.05-4.0 ng/mL) 0.72 (Ref Range: <0.05-4.0 ng/mL) 0.65 (Ref Range: <0.05-4.0 ng/mL) ???Lab:Vitamin D 25-OH Total (Order Date - 10/12/2024) (Collection Date & Time - 10/12/2024 10:58 AM)?ValueReference Range?Vitamin D 25-OH Total 59.6>30 - ng/mL * Examination: ???General Examination: ?GENERAL APPEARANCE:?pleasant, well nourished, well developed, in no acute distress, calm and relaxed, overweight, man.?HEAD:?atraumatic, normocephalic.?EYES:?eomi, perrla, anicteric, conjugate.?EARS:?normal.?NOSE:?septum intact.?ORAL CAVITY:?normal, unremarkable.?NECK/THYROID:?no jugular venous distention, no carotid bruit, thyroid normal, Mild decreased range of motion.?LYMPH NODES:?no enlarged lymph nodes,spleen normal.?SKIN:?no suspicious lesions, anicteric.?HEART:?no clicks, gallops, murmurs, or rubs, regular rhythm, S1, S2 normal, no s3, or vascular bruits.?LUNGS:?, diminished breath sounds throughout, good air movement, clear to auscultation bilaterally.?BREASTS:??no masses palpable bilaterally.?ABDOMEN:?bowel sounds normal, no ascites, no organomegaly, no mass, overweight.?RECTAL EXAM:?not examined.?MUSCULOSKELETAL:?extremities unremarkable, no clubbing, cyanosis or edema.?PERIPHERAL PULSES:?normal.?NEUROLOGIC:?alert and oriented, cranial nerves 2-12 grossly intact, deep tendon reflexes 2+ symmetrical, motor strength normal upper and lower extremities, sensory exam intact.?PSYCH:?alert, oriented, cognitive function intact, good eye contact, speech clear, thought process logical, goal directed.? 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 He is seeing the detective lieutenant regularly. He has had no disturbance of his rhythm. He feels well. He will see Dr. Maldonado of cardiology No change in his regimen is needed today.???2.?Hypertension - I10???Notes :His blood pressure was 113/58.? No change in his regimen was necessary.? He has been compliant with his medication.???3.?Mixed hyperlipidemia - E78.2???Notes :His lipids are currently stable.? No change in his regimen was needed.???4.?Overweight - E66.3???Notes :He remains overweight.? He has gained 4 pounds.? We reviiewed his diet and nutrition.? We mmade a plan to lose weight at a rate of one half of a pound per week.???5.?GERD without esophagitis - K21.9???Notes :He was continued on his current regimen. He denies any recent episodes of heartburn.???6.?Low back pain - M54.5???Notes :For the time being this has resolved.???7.?Peripheral vascular disease - I73.9???Notes :He denies any recent change in claudication or TIA symptoms.His carotid bruits are unchanged. He is up-to-date with carotid ultrasound.???8.?Benign prostatic hyperplasia with lower urinary tract symptoms - N40.1???Notes :He rises from sleep twice a night to urinate. We have discussed lifestyle modifications he could make to reduce nocturia.??? Plan: * Treatment: 2.?Mixed hyperlipidemia?LAB: PROFILE, FASTING (COMPREHENSIVE METABOLIC) ?LAB: CBC w DIFF ?LAB: Lipid Panel 3.?Overweight?LAB: PROFILE, FASTING (COMPREHENSIVE METABOLIC) ?LAB: CBC w DIFF ?LAB: Lipid Panel 4.?Others? Continue Metoprolol Tartrate Tablet, 100 MG, TAKE 1 TABLET BY MOUTH TWICE DAILY, Orally, Twice a day;?Continue Valsartan Tablet, 40 MG, TAKE 1 TABLET BY MOUTH ONCE DAILY, Oral.?? * Procedure Codes:? * Preventive Medicine:? ??Counseling:?Care goal follow-up plan:?Counseling for abnormal BMI given?Yes ?Above Normal BMI Follow-up?Dietary management education, guidance, and counseling, Dietary needs education, Exercise promotion: strength training, Exercise promotion: stretching, Feeding regime, Giving encouragement to exercise, Lifestyle education regarding diet, Nutrition / feeding management, Nutrition therapy, Prescribed activity/exercise education, Prescribed diet education, Prescribed dietary intake, Special diet education, Weight monitoring , Intervention, Order not done: Medical or Other reason not done ?Smoking/Tobacco Use?Patient counseled on the dangers of tobacco use and urged to quit.?10/19/2024 * Follow Up:?3-4 months (Reaso n: OV review labs) * Images: * Sign off status: Completed true * Provider:?Doroteo Smith MD Date:?09/21 Generated for Usha driver/Kirsty/eTransmitting on:?11/27/2024 10:40 AM EDT History and Physical Notes * HPI (History of Present Illness) Category Sub-Category Detail Notes COVID-19 Screening Questions Have you had any new onset fever, chills, cough, congestion, sore throat, shortness of breath, muscle aches?: No Examination Category Sub-Category Detail Notes General Examination GENERAL APPEARANCE: pleasant , well nourished, well developed, in no acute distress, calm and relaxed, overweight, man HEAD: atraumatic, normocep halic EYES: eomi, perrla, anicte benito, conjugate EARS: normal NOSE: septum intact NECK/THYROID: no jugular venous di stention, no carotid bruit, thyroid normal, Mild decreased range of motion HEART: no clicks, gallops, murmurs, or rubs, regular rhythm, S1, S2 normal, no s3, or vascular bruits LUNGS: , diminished breath sounds throughout, good air movement, clear to auscultation bilaterally ABDOMEN: bowel sounds normal, no ascites, no organomegaly, no mass, overweight NEUROLOGIC: alert and oriented, cranial nerves 2-12 grossly intact, deep tendon reflexes 2+ symmetrical, motor strength normal upper and lower extremities, sensory exam intact SKIN: no suspicious lesion s, anicteric PERIPHERAL PULSES: normal BREASTS: no masses palpable b ilaterally MUSCULOSKELETAL: extremities unremark able, no clubbing, cyanosis or edema LYMPH NODES: no enlarged lymph no bell,spleen normal RECTAL EXAM: not examined PSYCH: alert, oriented, cog nitive function intact, good eye contact, speech clear, thought process logical, goal directed ORAL CAVITY: normal, unremarkable
--- OUTSIDE RECORDS SUMMARY | 2024-11-27 10:40 | XMS_ITS ---
Author Organization Doroteo Smith III, MD Address [address] [place] [address] Care Team Providers Care Post Office Clerk Name Role Phone Doroteo Smith Primary Care Provider REASON FOR VISIT Message Social History Sex Assigned At : Social History Observation Description Sex Assigned At Male Encounters Encounter Location Date Provider Diagnosis Doroteo Smith III, MD [address] [place] [address] [place] [phone] 07/23/2024 Doroteo Smith Plan Of Treatment Next Appt Details Provider Name:Doroteo Smith, 02/08/2025 02:45:00 PM, [address] [place] [address] [place], [address], Provider Name:Doroteo Smith, 06/21/2025 02:00:00 PM, [address] [place] [address] [place], [phone], Progress Notes * Doroteo BURKS LDOB:1935 (88 yo M)Acc No.[id number]:07/23/2024 Patient:?Doroteo BURKS :1935???Age:88 Y???Sex:Male Address:[address] [place] [address] [place], [address] * true * Date:? Generated for Printi ng/Faxing/eTransmitting on:?11/27/2024 10:39 AM EDT
--- NOTE | 2024-11-27 10:42 | MHC.OFFWIV ---
Intake Vital Signs 11/27/24 10:43 Height 5 ft 5 in Weight 165 lb BMI 27.5 BP 116/70 Blood Pressure Location Lt brachial Position Sitting Pulse 60 Pulse Source Pulse Oximeter Pulse Oximetry (%) 96 Oxygen Delivery Method Room Air Intake Visit Reasons: EP fall, pain in ribs on rt side Patient Tobacco Use Status: Never used Tobacco Allergies No Known Allergies [No Known Allergies*] Allergy (Verified 11/27/24 10:44) Do you need a note to return to daycare/school/sports/work: No HPI EP fall, pain in ribs on rt side HPI Details This is an 89-year-old male patient who presents to the walk-in clinic today status post fall onto his right side about 4 days ago. He states that he slipped on his porch and fell. He did not hit his head or lose consciousness. 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 He states it is sore and achy on his right side. He does not have any breathing difficulties. He has not taken anything aside from 1 ibuprofen today which has provided some relief. He is also using an icy hot patch on the site. [facility] Social History Alcohol intake: never Patient Tobacco Use Status: Never used Tobacco Tobacco use type: Cigarette Review of Systems Const All systems reviewed & are unremarkable except as noted in HPI and below Physical Exam Vital Signs: Last Vital Signs Pulse 60 11/27/24 10:43 BP 116/70 11/27/24 10:43 Pulse Ox 96 11/27/24 10:43 Oxygen Delivery Method Room Air 11/27/24 10:43 BMI result Body Mass Index 27.5 Const General: cooperative, healthy appearing, comfortable and no acute distress Limitations: no limitations Resp Effort & Inspection: normal respiratory effort Auscultation: clear to auscultation bilaterally Cardio Rate: regular rate Rhythm: regular rhythm Back/Spine/Pelvis Other: mild ttp right side of ribs, posteriorly, approx 7-9. No bruising. Skin General skin exam: no rashes or lesions noted Extrem General: Yes no clubbing, cyanosis or edema Psych Appearance: grossly normal Mental Status: mental status grossly normal Speech and movement: Normal speech and movement present Assessment & Plan Assessment & Plan (1) Rib pain on right side: Code(s): R07.81 - Pleurodynia Plan: Likely soft tissue injury to his right side status post fall. Patient declines any imaging today. We discussed conservative measures including heat/ice application, Tylenol/ Motrin use, and he may continue to use icy hot patches as is beneficial. He would like Motrin prescribed if possible, which I will send. We discussed that if he does not improve with time and conservative measures, or if symptoms worsen/ new symptoms develop, he should return to the clinic or the emergency department for evaluation. He verbalizes understanding and agrees to plan. Medications: New ibuprofen Take 1 tablet every 8 hours as needed for pain. 600 mg PO Q8H PRN 60 tabs 0RF pain R07.81 - Pleurodynia Coding Level of Care Code Est Pt Level 4 (80664) Diagnoses Rib pain on right side R07.81
[2024-11-27 10:43] VITALS: BP 116/70; PULSE 60; O2SAT 96; BMI 27.5
== END 2024-11-27 11:09 | disposition home or self-care (01) ==
PROVIDERS: PCP Internal Medicine Medical Oncology; Visit Provider Nurse Practitioner Family
DX: R07.81 Pleurodynia (principal)

== ENCOUNTER → 2024-11-27 10:11 | Outpatient (BNVA) | payer MEDICARE, SELFPAY ==
[2023-02-22 13:02] VITALS: BP 122/60; BP 126/56; BMI 29.9
== END ==
PROVIDERS: PCP Internal Medicine Medical Oncology; Visit Provider Nurse Practitioner Family
DX: R07.81 Pleurodynia (principal)
CPT/HCPCS: 99212

== ENCOUNTER 2025-02-01 10:00 | Outpatient (REF) | payer MEDICARE, SELFPAY ==
[2023-02-22 13:02] VITALS: BP 122/60; BP 126/56; BMI 29.9
--- OUTSIDE RECORDS SUMMARY | 2024-12-07 05:30 | XMS_ITS | Encounter Summary ---
Author Name [facility] Address [address] [place] [address] Care Team Providers Care Pmo Consultant Name Role Phone REGGIE PEREZ Primary Care [...] Moctezuma's Name Patient's Relationship to Policy Moctezuma [facility] MEDICARE SUPP[employer] Jun 21, 2014 [id number] SILVIO BURKS PATIENT [facility] MEDICARE SUPP[employer] BRITTANY [employer] CORE Jun 21, 2014 [id number] SILVIO BURKS PATIENT MEDICARE (WNR) MEDICARE (M) PART A Oct 20, 2000 PART A [id number] SILVIO BURKS PATIENT MEDICARE (WNR) MEDICARE (M) PART B Oct 20, 2000 PART B [id number] SILVIO BURKS PATIENT MEDICARE (WNR) MEDICARE (M) PART A Oct 20, 2000 PART A [id number] [phone] SILVIO BURKS PATIENT MEDICARE (WNR) MEDICARE (M) PART B Oct 20, 2000 PART B [id number] KIMMIESILVIO LEWIS PATIENT Selected Encounter This section includes the information on record at [place] for the Encounter. Date/Time Encounter Type Encounter Description Reason Provider Source December 07, 2024 09:30 AM OFFICE O/P EST LOW 20 MIN PRIMARY CARE/MEDICINE ICD-10-CM H91.90 Unspecified hearing loss, unspecified ear REGGIE PEREZ I[facility] Encounter Template Text not used by [place] Assessments - Encounter Diagnoses This section includes the primary and secondary diagnoses documented for the Encounter. Date/Time Primary/Secondary Diagnosis Diagnosis Name Provider Source December 07, 2024 09:52 AM PRIMARY Unspecified hearing loss, unspecified ear REGGIE PEREZ [facility] Vital Signs: All taken on the encounter date This section contains inpatient and outpatient Vital Signs collected on the date of the Encounter. Date/Time Temperature Pulse Blood Pressure Respiratory Rate SP02 Pain Height Weight Body Mass Index Source December 07, 2024 09:48 AM 134/84 [place] [employer] [facility] December 07, 2024 09:26 AM 98 68 142/82 16 93 0 65 176 [facility] Social History: Smoking Status (Most current) and Tobacco Use (All prior to encounter date) This section includes the most current, and the historical, smoking and tobacco- related health factors from the [place] facility where the Encounter took place. Current Smoking Status This section includes the most current smoking, or tobacco-related health factor, from the [place] facility where the Encounter took place. Date/Time Current Smoking Status Comment [facility] it December 07, 2024 09:30 AM [place]-TOBACCO NEVER U SED CIGARETTES [facility] Tobacco Use History This section includes a history of the smoking, or tobacco-related health factors, that were collected on or before the date of the Encounter. The data comes from the [place] facility where the Encounter took place. Date/Time Smoking Status/Tobac co Use Comment Facility December 07, 2024 09:30 AM [place]-TOBACCO NEVER USED OTHER TYPE [place] [employer] [facility] [place] [facility] December 09, 2023 09:30 AM VA-TOBACCO FORMER USER [place] [facility] [place] [facility] December 09, 2023 09:30 AM [place]-TOBACCO QUIT 15 YRS OR MORE [facility] [place] [facility] December 12, 2022 09:00 AM VA-TOBACCO FORMER USER [facility] [place] [facility] December 12, 2022 09:00 AM VA-TOBACCO QUIT 15 YRS OR MORE [facility] [place] [facility] December 13, 2021 09:00 AM VA-TOBACCO FORMER USER [facility] [place] [facility] December 13, 2021 09:00 AM VA-TOBACCO QUIT 15 YRS OR MORE [facility] [place] [facility] December 13, 2020 09:00 AM VA-TOBACCO FORMER USER [facility] [place] [facility] December 13, 2020 09:00 AM VA-TOBACCO QUIT 15 YRS OR MORE [facility] [place] [facility] Oct 30, 2019 12:52 PM VA-TOBACCO FORMER USER [facility] [place] [facility] Oct 30, 2019 12:52 PM VA-TOBACCO QUIT 15 YRS OR MORE [facility] [place] [facility] Nov 14, 2018 09:05 AM VA-TOBACCO NEVER USED [facility] [place] [facility] Dec 20, 2017 02:24 PM QUIT TOBACCO USE > 7 YEARS AGO [facility] [place] [facility] November 24, 2016 09:02 AM QUIT TOBACCO USE > 7 YEARS AGO pt state he quit 30 yrs ago. [facility] [place] [facility] Oct 01, 2015 08:55 AM QUIT TOBACCO USE > 7 YEARS AGO PT STATES HE QUIT 25 YRS AGO [facility] [place] [facility] Jul 27, 2009 11:15 AM QUIT TOBACCO USE > 7 YEARS AGO [facility] [place] [facility] Encounter Notes: All associated encounter notes This section contains the clinical notes associated to the Encounter. Date/Time Encounter Note(s) Provider Source December 07, 2024 09:48 AM PHYSICIAN NOTE: LOCAL TITLE: NOTE STANDARD TITLE: PHYSICIAN NOTE DATE OF NOTE: DECEMBER 07, 2024@09:48 ENTRY DATE: DECEMBER 07, 2024@09:48:40 AUTHOR: REGGIE PEREZ COSIGNER: URGENCY: STATUS: COMPLETED Patient Name: SILVIO BURKS VITALS: Patient temperature: 98 F [36.7 C] (12/07/2024 09:26) Blood pressure: 134/84 (12/07/2024 09:48) Patient height: 65 in [165.1 cm] (12/07/2024:) Patient weight: 176 lb [79.83 kg] (12/07/2024:) Patient BMI: BMI: 29.3 Patient pulse: 68 (12/07/2024:) Patient respiration: 16 (12/07/2024:) Patient Pulse Oximetry: 93% (12/07/2024:) PTSD Screening: PC-PTSD-5 A PTSD screening test (PC-PTSD-5) was negative (score=0). IN THE PAST MONTH, have you ever had any experience that was so frightening, horrible or traumatic. For example: A serious accident or fire a physical or sexual assault or abuse An earthquake or flood A war Seeing someone be killed or seriously injured Having a loved one through homicide or suicide 1. Have you ever experienced this kind of event? NO 2. Had nightmares about the event(s) or thought about the event(s) when you did not want to? Response not required due to responses to other questions. 3. Tried hard not to think about the event(s) or went out of your way to avoid situations that reminded you of the event(s)? Response not required due to responses to other questions. 4. Been constantly on guard, watchful, or easily startled? Response not required due to responses to other questions. 5. [place] numb or detached from people, activities, or your surroundings? Response not required due to responses to other questions. 6. [place] guilty or unable to stop blaming yourself or others for the event(s) or any problems the event(s) may have caused? Response not required due to responses to other questions. Pain Ratin (12/07/2024:) Active [facility] Medications: Active Outpatient Medications (including Supplies): Active Non-VA Medications Status === 1) Non-VA ASPIRIN 81MG EC TAB 81MG BY MOUTH EVERY DAY ACTIVE 2) Non-VA LISINOPRIL 20MG TAB 20MG BY MOUTH TWICE DAILY ACTIVE 3) Non-VA SIMVASTATIN 80MG TAB 80MG BY MOUTH AT BEDTIME ACTIVE Remote Medications: No Active Remote Medications for this patient filenet admin note Chief complaint: Hard of hearing all primary care private Dr. Smith, [place] for audiology History of present illness Patient wears hearing aids for hard of hearing. feels well today with no complaints. He is content with present hearing aids Physical examination well-developed well-nourished male no acute distress Ears without cerumen or erythema Assessment and plan: 1. Hard of hearing: Followed by audiology Plan: Continue above Follow-up 1 year Patient declined all vaccines today Medication Reconciliation: Outpatient: Has the patient been taking medications as documented in the EMLR? YES: The patient has been taking medications as documented in the EMLR. Essential Medication List for Review used to complete this medication reconciliation. INCLUDED IN THIS LIST: Alphabetical list of active outpatient prescriptions dispensed from this [facility] (local) and dispensed from another [place] or [facility] facility (remote) as well as inpatient [...] whether with a VA or non-VA provider. Pneumococcal Conjugate Vaccine (PCV15/PCV20/PCV21): Refuses PCV vaccine Immunization: PNEUMOCOCCAL CONJUGATE, UNSPECIFIED FORMULATION Refusal Reason: PATIENT DECISION Patient refuses all immunization(s) in the PneumoPCV group Date Documented: 12/07/24 09:51 Td/Tdap Immunization: The patient declines to receive the recommended dose of Td/Tdap vaccine. Immunization: TD(ADULT) UNSPECIFIED FORMULATION Refusal Reason: PATIENT DECISION Patient refuses all immunization(s) in the Td group Date Documented: 12/07/24 09:51 /fermin/ Reggie Perez MD Staff Physician Signed: 12/07/2024 09:52 REGGIE PEREZ [place] [facility] December 07, 2024 09:32 AM PREVENTIVE MEDICIN E NURSING NOTE: LOCAL TITLE: CLINICAL REMINDERS/NURSING STANDARD TITLE: PREVENTIVE MEDICINE NURSING NOTE DATE OF NOTE: DECEMBER 07, 2024@09:32 ENTRY DATE: DECEMBER 07, 2024@09:32:10 AUTHOR: EMILIA BILL COSIGNER: URGENCY: STATUS: COMPLETED Falls & Incontinence Screen: Falls Screen: 3. At least one fall with injury requiring treatment (in ED or clinic visit). Incontinence Screen No incontinence. Depression Screening: Perform PHQ-2 A PHQ-2 screen was performed. The score was 0 which is a negative screen for depression. Over the past two weeks, how often have you been bothered by the following problems? 1. Little interest or pleasure in doing things Not at all 2. Feeling down, depressed, or hopeless Not at all Suicide Screen: C-SSRS Screening [place] Suicide Severity Rating Scale (C-SSRS) screener 1. [...] required due to responses to other questions. Alcohol Use Screen (AUDIT-C): Alcohol Screen: SCREEN [...] you were drinking in the past year? One or two drinks 3. How often did you have six or more drinks on one occasion in the past year? Never Sexual Orientation: The patient thinks of their sexual orientation as: Straight or Heterosexual RHS Screen: RHS Screen Session Format: Face to Face Environmental Check Upon inquiry, the individual reports that the environment is safe to proceed. Informed Consent to Screen and Document The individual consents to proceed with screening. The individual consents to documentation of responses. PRIMARY SCREEN: In the past 12 months, how often did a current or former intimate partner (e.g., boyfriend, girlfriend, , , sexual partner): 1. Scream or curse at you Never 2. Insult or talk down to you Never 3. Threaten you with harm Never 4. Physically hurt you Never 5. Force or pressure you to have sexual contact against your will, or when you were unable to say no Never The HITS tool (items 1-4 above) is [place] copyright protected by Justice Tsai MD, and the user has full rights to use it throughout the [place] system. PRIMARY SCREEN RESULT: The Primary Screen is NEGATIVE. The individual answered never to all forms of IPV above (i.e., answered never to all 5 items) The individual accepts education and/or resources: Other: n/a EDUCATION: Other: n/a Influenza Immunization: The patient has received the seasonal influenza vaccine for the current season at another location. Documented: INFLUENZA, UNSPECIFIED FORMULATION Historical Date Administered: May 31, 2024 Series: Complete Outside Location: Outside Healthcare Provider Information Source: FROM OTHER REGISTRY Comment: [facility] Tobacco Use Screening: The patient has never smoked cigarettes. The patient has never used other types of tobacco. COVID-19 Immunization: Patient received a prior dose of the Moderna Monovalent vaccine. Documented: COVID-19 (MODERNA), MRNA, LNP-S, PF, 50 MCG/0.5 ML (AGES 12+ YEARS) Historical Date Administered: Jun 20, 2024 Series: Series 5 Outside Location: Outside Healthcare Provider Information Source: FROM OTHER REGISTRY Comment: [facility] Advance Directive Screen AD: The patient has an Advance Directive on file at another [facility] that may require updating with the assistance of Social Work Service. A consult to Social Work Service has been entered. (See Orders) The patient received education about Advance Directives and written notification of his/her rights. Comment: will get a copy to this [place] /fermin/ EMILIA BILL LPN LPN Signed: 12/07/2024 09:40 [facility]ILL [place] [facility]
[2025-02-01 10:12] LABS: MANUAL DIFF FLAG NO
--- OUTSIDE RECORDS SUMMARY | 2025-02-01 10:41 | XMS_ITS | Patient Health Record ---
Author Organization Doroteo Smith III, MD Address [address] [place] [phone] Care Team Providers Care Animal Tech Name Role Phone Doroteo Smith Primary Care [...] ff Reviewed date:03/16/2024 11:00:50 AM Interpretation: Performing Lab:[facility], [address] [place] [phone] Notes/Report: White Blood Count 7.9 4.8-10.8 X10*3/uL [...] NRBC Abs Auto 0.000 0.0-0.012 X10*3/uL Comprehensive Williamson. Panel Fa st Reviewed date:03/16/2024 11:00:50 AM Interpretation: Performing Lab:[facility], [address] [place] [phone] Notes/Report: Sodium 141 135-145 mmol/L Potassium 5.3 3.3-5.1 mmol/L Chloride 109 96-108 mmol/L Carbon Dioxide 27 22-29 mmol/L Anion Gap 10 12-20 Blood Urea Nitrogen 40 9-16 mg/dL Creatinine 1.49 0.5-1.4 mg/dL Estimated Glomerular Filt Rate 45 NOTE: For -Dutch individuals, multiply the result by 1.210. Chronic [...] Panel Reviewed date:03/16/2024 11:00:50 AM Interpretation: Performing Lab:[facility], [address] [place] [phone] Notes/Report: Triglycerides 150 <150 mg/dL Desirable Triglyceride: [...] ff Reviewed date:04/05/2024 07:31:23 AM Interpretation: Performing Lab:[facility], [address] [place] [phone] Notes/Report: White Blood Count 8.1 4.8-10.8 X10*3/uL [...] NRBC Abs Auto 0.000 0.0-0.012 X10*3/uL Comprehensive Williamson. Panel Fa st Reviewed date:04/05/2024 07:31:23 AM Interpretation: Performing Lab:[facility], [address] [place] [phone] Notes/Report: Sodium 140 135-145 mmol/L Potassium 5.5 3.3-5.1 mmol/L Chloride 109 96-108 mmol/L Carbon Dioxide 25 22-29 mmol/L Anion Gap 12 12-20 Blood Urea Nitrogen 44 9-16 mg/dL Creatinine 1.61 0.5-1.4 mg/dL Estimated Glomerular Filt Rate 41 NOTE: For -Dutch individuals, multiply the result by 1.210. Chronic [...] Panel Reviewed date:04/05/2024 07:31:23 AM Interpretation: Performing Lab:[facility], [address] [place] [phone] Notes/Report: Triglycerides 144 <150 mg/dL Desirable Triglyceride: [...] ff Reviewed date:06/09/2024 06:02:56 AM Interpretation: Performing Lab:[facility], [address] [place] [phone] Notes/Report: White Blood Count 8.0 4.8-10.8 X10*3/uL [...] Panel Reviewed date:06/09/2024 06:02:56 AM Interpretation: Performing Lab:[facility], [address] [place] [phone] Notes/Report: Triglycerides 107 <150 mg/dL Desirable Triglyceride: [...] ff Reviewed date:10/14/2024 08:58:28 AM Interpretation: Performing Lab:[facility], [address] [place] [phone] Notes/Report: White Blood Count 8.8 4.8-10.8 X10*3/uL [...] Panel Reviewed date:10/14/2024 08:58:28 AM Interpretation: Performing Lab:[facility], [address] [place] [phone] Notes/Report: Sodium 142 135-145 mmol/L Potassium 5.6 [...] Antigen Reviewed date:10/14/2024 08:58:28 AM Interpretation: Performing Lab:[facility], [address] [place] [phone] Notes/Report: Prostate Specific Antigen 0.67 <0.05-4.0 ng/mL PSA methodology: Sears Alinity i Chemiluminescent Microparticle Immunoassay (CMIA) Vitamin D 25-OH Total Reviewed date:10/14/2024 08:58:28 AM Interpretation: Performing Lab:[facility], [address] [place] [phone] Notes/Report: Vitamin D 25-OH Total 59.6 >30 [...] Problem Status W/U Status Risk Notes Problem 7715580 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 Problem 360927779 Overweight (E66.3) Active confirmed He remains overweight. He has gained 4 pounds. We reviiewed his diet and nutrition. We mmade a plan to lose weight at a rate of one half of a pound per week. Problem Hypertension (96816413) Hypertension (I10) Active confirmed His blood pressure was 113/58. No change in his regimen was necessary. He has been compliant with his medication. Problem 957559320 Mixed hyperlipidemia (E78.2) Active confirmed His lipids are currently stable. No change in his regimen was needed. Problem 367604098 Atherosclerotic heart disease of [place] coronary artery without angina pectoris (I25.10) Active confirmed He denies any angina since his stents were inserted. He is seeing the presentation designer regularly. He has had no disturbance of his rhythm. He feels well. He will see Dr. Maldonado of cardiology No change in his regimen is needed today. Problem 848287580 Low back pain (M54.5) Active confirmed For the time being this has resolved. Problem 186235092 Nocturia (R35.1) Active confirmed He admits to 2 episodes of nocturia per night. We discussed lifestyle modification to prevent this. Medication will be used if necessary. He did not wish to take more medication at this time. Problem 406188203 GERD without esophagitis (K21.9) Active confirmed He was continue d on his current regimen. He denies any recent episodes of heartburn. Problem 854958543 Peripheral vascular disease (I73.9) Active confirmed He denies any recent change in claudication or TIA symptoms.His carotid bruits are unchanged. He is up-to-date with carotid ultrasound. Problem [id number] Benign prostatic hyperplasia with lower urinary tract symptoms (N40.1) Active confirmed He rises from sleep twice a night to urinate. We have discussed lifestyle modifications he could make to reduce nocturia. Problem 935450457 Right carotid bruit (R09.89) Active confirmed There is a palpable pulse and he is asymptomatic. He has known aortic stenosis seen on a recent echocardiogram. An ultrasound of the carotid arteries has been ordered to assess the possibility of carotid stenosis. 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 Vital Signs Heart Rate 60 /min 10/19/2024 Temperature 97.2 degrees Fahrenheit 10/19/2024 Blood pressure diastolic 58 mm Hg 10/19/2024 Height 66 in 10/19/2024 Blood pressure systolic 113 mm Hg 10/19/2024 Weight 168 lbs 10/19/2024 BMI 27.11 kg/m2 10/19/2024 Encounters Encounter Location Date Provider Diagnosis Doroteo Smith III, MD [address] [place] [place] [address] [place] [phone] 03/16/2024 Doroteo Smith Hypertension I10 ; M ixed hyperlipidemia E78.2 ; GERD without esophagitis K21.9 ; Low back pain M54.5 ; Peripheral vascular disease I73.9 ; Atherosclerotic heart disease of [place] coronary artery without angina pectoris I25.10 ; Overweight E66.3 and Former smoker Z87.891 Doroteo Smith III, MD [address] [place] [place] [address] [place] [address] 04/06/2024 Doroteo Smith Hypertension I10 ; M ixed hyperlipidemia E78.2 ; Overweight E66.3 ; Benign prostatic hyperplasia with lower urinary tract symptoms N40.1 ; Atherosclerotic heart disease of [place] coronary artery without angina pectoris I25.10 ; Peripheral vascular disease I73.9 and Former smoker Z87.891 Doroteo Smith III, MD [address] [place] [place] [address] [place] [address] 06/15/2024 Doroteo Smith Hypertension I10 ; Atherosclerotic heart disease of [place] coronary artery without angina pectoris I25.10 ; Mixed hyperlipidemia E78.2 ; Overweight E66.3 ; Benign prostatic hyperplasia with lower urinary tract symptoms N40.1 ; Former smoker Z87.891 ; GERD without esophagitis K21.9 ; Peripheral vascular disease I73.9 ; 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 both eyes H40.033 and Right carotid bruit R09.89 Doroteo Smith III, MD [address] [place] [address] [address] [place] [address] 10/19/2024 Doroteo Smith Hypertension I10 ; Atherosclerotic heart disease of [place] coronary artery without angina pectoris I25.10 ; Mixed hyperlipidemia E78.2 ; Overweight E66.3 ; GERD without esophagitis K21.9 ; Low back pain M54.5 ; Peripheral vascular disease I73.9 and Benign prostatic hyperplasia with lower urinary tract symptoms N40.1 Doroteo Smith III, MD [address] [place] [place] [address] [address] [place] [address] 07/23/2024 Doroteo Smith Assessments Encounter Date Diagnosis [...] needed. 06/15/2024 Atherosclerotic hear t disease of [place] coronary artery without angina pectoris (ICD-10 - I25.10) He denies any angina since his stents were inserted. He is seeing the presentation designer regularly. He has had no disturbance of his rhythm. He feels well. He will see Dr. Maldonado of cardiology No change in his regimen is needed today. 10/19/2024 Hypertension (ICD-10 - I10) His blood pressure was 113/58. No change in his regimen was necessary. He has been compliant with his medication. 10/19/2024 Atherosclerotic hear t disease of [place] coronary artery without angina pectoris (ICD-10 - I25.10) He denies any angina since his stents were inserted. He is seeing the presentation designer regularly. He has had no disturbance of [...] symptoms. 04/06/2024 Atherosclerotic hear t disease of [place] coronary artery without angina pectoris (ICD-10 - I25.10) He denies any angina since his stents were inserted. He is seeing the presentation designer regularly. He has had no disturbance of [...] heartburn. 03/16/2024 Atherosclerotic hear t disease of [place] coronary artery without angina pectoris (ICD-10 - I25.10) He denies any angina since his stents were inserted. He is seeing the presentation designer regularly. He has had no disturbance of [...] be continued and he will see the re recording mixer regularly. 06/15/2024 Right carotid bruit (ICD-10 - R09.89) There is a palpable pulse and he is asymptomatic. He has known aortic stenosis seen on a recent echocardiogram. An ultrasound of the carotid arteries has been ordered to assess the possibility of carotid stenosis. Plan Of Treatment Pending Test Test Name Order Date PROFILE, FASTING (COMPREHENSIVE METABOLI C) 08/19/2023 PROFILE, FASTING (COMPREHENSIVE METABOLI C) 05/28/2022 PROFILE, FASTING (COMPREHENSIVE METABOLI C) 10/19/2024 PROFILE, FASTING (COMPREHENSIVE METABOLI C) 07/31/2021 PROFILE, FASTING (COMPREHENSIVE METABOLI C) 03/16/2024 PROFILE, FASTING (COMPREHENSIVE METABOLI C) 02/05/2022 PROFILE, FASTING (COMPREHENSIVE METABOLI C) 02/04/2023 PROFILE, FASTING (COMPREHENSIVE METABOLI C) 11/05/2022 PROFILE, FASTING (COMPREHENSIVE METABOLI C) 11/18/2023 PROFILE, FASTING (COMPREHENSIVE METABOLI C) 11/06/2021 PROFILE, FASTING (COMPREHENSIVE METABOLI C) 04/06/2024 PROFILE, RANDOM (COMPREHENSIVE METABOLIC ) 06/15/2024 LIPID PANEL 11/06/2021 LIPID PANEL 07/31/2021 LIPID PANEL 02/04/2023 LIPID PANEL 11/05/2022 PSA, TOTAL 11/05/2022 PSA, TOTAL 08/19/2023 PSA, TOTAL 02/05/2022 PSA, TOTAL 06/15/2024 CBC w DIFF 11/06/2021 CBC w DIFF 11/05/2022 CBC w DIFF 05/28/2022 CBC w DIFF 10/19/2024 CBC w DIFF 03/16/2024 CBC w DIFF 07/31/2021 CBC w DIFF 02/05/2022 CBC w DIFF 02/04/2023 CBC WITH AUTO DIFF 11/18/2023 CBC WITH AUTO DIFF 04/06/2024 CBC WITH AUTO DIFF 08/19/2023 CBC WITH AUTO DIFF 06/15/2024 Lipid Panel 02/05/2022 Lipid Panel 11/18/2023 Lipid Panel 04/06/2024 Lipid Panel 05/28/2022 Lipid Panel 10/19/2024 Lipid Panel 08/19/2023 Lipid Panel 03/16/2024 Vitamin D 25-OH Total 06/15/2024 Next Appt Details Provider Name:Doroteo Smith, 02/08/2025 02:45:00 PM, [address] [facility] [address], [place], [address], Provider Name:Doroteo Smith, 06/21/2025 02:00:00 PM, [address] [place] [place] [address] [address], [place], [address], Insurance Providers Payer Name Payer Address Payer Phone Subscriber Number Group Number Insured Name Patient Relationship to Insured Coverage Start Date Coverage End Date MEDICARE NGS [address] [place] [address] [id number] Doroteo Acosta Self - patient is the insured [facility] [address] [place], [place] [id number] Doroteo Acosta Self - patient is the insured Medical [...] No history Coronary artery Stent placement at [facility] Dr. Maldonado 06/08/21 Stents inserted both iliac arteries for claudication Cardiac catheterization, sev ere disease left main, LAD, left circumflex, stented 2006 Hospitalization History Reason Date(Month/Year) No history
[2025-02-01 10:59] LABS: Hematocrit 38.6 % (42.0-52.0); Hemoglobin 12.8 g/dl (14.0-18.0); Imm Gran Abs Auto 0.03 X10*3/uL (0.00-0.03); Imm Gran Pct Auto 0.4 % (0.0-0.4); Lymphocytes Absolute Auto 1.6 X10*3/uL (1.2-4.9); Mean Corpuscular HGB Conc 33.2 g/dl (31.0-36.0); Mean Corpuscular Hemoglobin 31.7 pg (27.0-33.0); Mean Corpuscular Volume 95.5 fL (80.0-98.0); NRBC Abs Auto 0.000 X10*3/uL (0.0-0.012); NRBC Pct Auto 0.0 /100WBC (0.0-0.2); Platelet Count 160 X10*3/uL (160-400); Red Blood Count 4.04 X10*6/uL (4.60-5.80); White Blood Count 7.0 X10*3/uL (4.8-10.8)
[2025-02-01 11:58] LABS: Alanine Aminotransferase 30 U/L (0-40); Albumin Level 3.8 g/dL (3.5-5.0); Alkaline Phosphatase 87 U/L (39-117); Anion Gap 9 (12-20); Aspartate Amino Transferase 27 U/L (5-37); Blood Urea Nitrogen 29 mg/dL (9-16); Calcium 8.7 mg/dL (8.4-10.2); Carbon Dioxide 28 mmol/L (22-29); Chloride 110 mmol/L (96-108); Cholesterol 172 mg/dL (<200); Estimated Glomerular Filt Rate 48; HDL Cholesterol 48 mg/dL (>40); Potassium 4.4 mmol/L (3.3-5.1); Sodium 143 mmol/L (135-145); Total Protein 6.6 g/dL (6.5-8.0); Triglycerides 122 mg/dL (<150)
== END 2025-02-01 10:01 | disposition home or self-care (01) ==
LOC: HO.LAB 10:00
PROVIDERS: Absent Provider Internal Medicine Interventional Cardiology; PCP Internal Medicine Medical Oncology; Visit Provider Internal Medicine Medical Oncology
DX: I10 Essential (primary) hypertension (principal); E78.2 Mixed hyperlipidemia; E66.3 Overweight
CPT/HCPCS: 36415; 80053; 80061; 85025

== ENCOUNTER 2025-05-03 09:46 | Outpatient (REF) | payer MEDICARE, SELFPAY ==
[2023-02-22 13:02] VITALS: BP 122/60; BP 126/56; BMI 29.9
--- OUTSIDE RECORDS SUMMARY | 2024-04-06 07:15 | XMS_ITS ---
Author Organization Doroteo Smith III, MD Address [address] [place] [address] Care Team Providers Care Acid Blower Name Role Phone Dr. Doroteo Smith III Primary Care Provider Allergies Allergen (clinical drug ingredient) Drug/Non Drug Allergy documented on EMR Reaction Allergy Type Onset Date Status No Known Drug Allergy Unknown Drug Allergy Active REASON FOR VISIT Coronary artery diseaase, Hyperlipidemia, GERD, Prosthetic, Former smoker Medications Medication SIG (Take, Route, Frequency, Duration) Notes Start Date End Date Status Ezetimibe 10 MG TAKE 1 TABLET BY MARILIA TH ONCE DAILY Oral Active Simvastatin 40 MG as directed Orally O nce a day Active Metoprolol Tartrate 100 MG TAKE 1 TABLET BY MOUTH TWICE DAILY DIRECTED Active Aspirin 81 MG 1 tablet Orally Once a day Active Valsartan 40 MG TAKE 1 TABLET BY MARILIA TH ONCE DAILY Oral Active Social History Tobacco Use: Social History Observation Description Date Details (start date - stop date) Former Smoker NA - NA Sex Assigned At : Social History Observation Description Sex Assigned At Male Tobacco Use/Smoking Question Answer Notes Patient is a former smoker How long has it been since you last smoked? > 10 years Additional Findings: Tobacco Non-User Ex-cigaret te smoker Vital Signs Height 66 in 04/06/2024 Weight 169 lbs 04/06/2024 BMI 27.27 kg/m2 04/06/2024 Encounters Encounter Location Date Provider Diagnosis Doroteo Smith III, MD [address] [place] [address] [place] [address] 04/06/2024 Doroteo Smith Hypertension I10 ; M ixed hyperlipidemia E78.2 ; Overweight E66.3 ; Benign prostatic hyperplasia with lower urinary tract symptoms N40.1 ; Atherosclerotic heart disease of [place] coronary artery without angina pectoris I25.10 ; Peripheral vascular disease I73.9 and Former smoker Z87.891 Assessments Encounter Date Diagnosis (ICD Code) Assessment Notes Treat ment Notes Treatment Clinical Notes 04/06/2024 Hypertension (ICD-10 - I10) His blood pressures have been in the in the normal range. No change in his regimen was needed. 04/06/2024 Mixed hyperlipidemia (ICD-10 - E78.2) His lipids are currentlyy stable with an LDL below 70 and 63. 04/06/2024 Overweight (ICD-10 - E66.3) His weight is stable. 04/06/2024 Benign prostatic hyperplasia with lower urinary tract symptoms (ICD-10 - N40.1) He rises from sleep once a night to urinate. We have discussed lifestyle modification as a way to reduce nocturia. 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 He is seeing the artificial flowers starcher regularly. He has had no disturbance of his rhythm. He feels well. He will see Dr. Maldonado of cardiology No change in his regimen is needed today. 04/06/2024 Peripheral vascular disease (ICD-10 - I73.9) He denies any recent change in claudication or TIA symptoms. 04/06/2024 Former smoker (ICD-1 0 - Z87.891) He has a planned to prevent relapse and times of stress and illness. Plan Of Treatment Medication Medication Name Sig Start Date Stop Date Notes Ezetimibe 10 MG TAKE 1 TABLET BY MARILIA TH ONCE DAILY Oral Simvastatin 40 MG as directed Orally Once a day Metoprolol Tartrate 100 MG TAKE 1 TABLET BY MOUTH TWICE DAILY DIRECTED Aspirin 81 MG 1 tablet Orally Once a day Valsartan 40 MG TAKE 1 TABLET BY MARILIA TH ONCE DAILY Oral Pending Test Test Name Order Date PROFILE, FASTING (COMPREHENSIVE METABOLI C) 04/06/2024 CBC WITH AUTO DIFF 04/06/2024 Lipid Panel 04/06/2024 Next Appt Details Follow Up: As Scheduled, [place] son: OV Provider Name:Doroteo Smith , 05/10/2025 02:15:00 PM, [address] [place] [address] [address], [place], [address], Provider Name:Doroteo Smith , 06/21/2025 02:00:00 PM, [address] [place] [address] [address], [place], [address], Progress Notes * Doroteo ACOSTA LDOB:1935 (88 yo M)Acc No.[id number]:04/06/2024 Patient: Doroteo Hoyos Provider: Marylin Smith MD :1935 A ge:88 Y S ex:Male Date:04/06/2024 Address:[address] [place] [address] NILA SAUCEDO [id number] Subjective: * Chief Complaints: * C oronary artery diseaaseHyperlipidemiaGERDProstheticFormer smoker * HPI: * : Thiss telehealth visit took place over 15 minutes with thee patient at home and mme in my office. He ggave consent for billing. This wwas tto follow-upp on his last one. He gregorio not compprehensive bloodd work he haad been not taking his simvastatin recently buut he iss now takinng it once a day at dinnertime. He is feeling weell annd has hhad no anginaa since his last visitt. Telehealth L ocation of provider rendering services: { ...} [address] [facility] [address] L ocation of patient: a ddress listed in demographics for today's visit P atient identification confirmed using: N kathia, T elehealth method: T elephone only. Patient not visible to care provider. C onsent: P atient verbally consented to treatment, Patient verbally consented to billing insurance company, Patient informed of any privacy concerns related to method of visit T otal time spent with patient (mins) 1 5 * ROS: G eneral/Constitutional: pain o nly normal aches and pains. C hills d enies.?Fatigue a dmits. F ever d enies. E NT: Decreased hearing i n both ears. R espiratory: Cough d enies. C ardiovascular: Chest pain with exertion d enies. D yspnea on exertion?denies. S hortness of breath d enies. G astrointestinal: Constipation o ccasional. D ecreased appetite d enies. D iarrhea d enies. H eartburn d enies. N ausea d enies. R ectal bleeding d enies. V omiting d enies. H ematology: bruising d enies. p etechiae d enies. S wollen glands n one have been noted. G enitourinary: Frequent urination t wice a night. M usculoskeletal: Muscle aches d enies. P ainful joints d enies. S ciatica d enies. W eakness d enies. S kin: Itching d enies. R rajan d enies. S kin lesion(s)?denies. N eurologic: Difficulty speaking d enies. D izziness d enies.?Headache d enies. L ow back pain d enies. P sychiatric: Depressed mood d enies. * Medical History: * Surgical History: C ardiac catheterization, severe disease left main, LAD, left circumflex, stented 2007Stents inserted both iliac arteries for claudication Coronary artery Stent placement at [facility] Dr. Maldonado 06/08/21 * Hospitalization/Major Diagno stic Procedure: D enies Past Hospitalization * Family History: F ather: 52 yrs, Pancreatic cancer. M other: 75 yrs, Coronary artery disease, myocardial infarction, stroke. Dione burks: alive. His father at the age of 52 of cancer of the pancreas. His mother with coronary artery disease and a stroke. He has 2 childre 1 is alive and well and one of coronary artery disease. He has no grandchildren. He is not aware of any inherited cancer family syndromes. He is not aware of any family history of mental illness or substance use disorder, or addictions. * Social History: T obacco Use: T obacco Use/Smoking P atient is a f ormer smoker H ow long has it been since you last smoked??> 10 years A dditional Findings: Tobacco Non-User E x-cigarette smoker Bhavna velásquez was born in [place], [place]. He has been to [facility] and for 57 years. She is 79 years old and is in good health. 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 He continues to work with. 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 He served in the [employer]. * Medications: T akingSimvastatin 40 MG Tablet as directed Orally Once a dayMetoprolol Tartrate 100 MG Tablet TAKE 1 TABLET BY MOUTH TWICE DAILY DIRECTED Aspirin 81 MG Tablet Delayed Release 1 tablet Orally Once a dayValsartan 40 MG Tablet TAKE 1 TABLET BY MOUTH ONCE DAILY Oral Ezetimibe 10 MG Tablet TAKE 1 TABLET BY MOUTH ONCE DAILY Oral Medication List reviewed and reconciled with the patientTaking Simvastatin 40 MG Tablet as directed Orally Once a dayTaking Metoprolol Tartrate 100 MG Tablet TAKE 1 TABLET BY MOUTH TWICE DAILY DIRECTED Taking Aspirin 81 MG Tablet Delayed Release 1 tablet Orally Once a dayTaking Valsartan 40 MG Tablet TAKE 1 TABLET BY MOUTH ONCE DAILY Oral Taking Ezetimibe 10 MG Tablet TAKE 1 TABLET BY MOUTH ONCE DAILY Oral Medication List reviewed and reconciled with the patient * Allergies: N o Known Drug Allergyno[Allergies Verified] Objective: * Vitals: H t: 66, Wt:169, BMI:27.27, Ht-cm: 167.64, Wt-k.66. * P ast Orders: Lab:Lipid Panel * Order Date 03/30/2024 03/09/2024 11/11/2023 Triglycerides 144 (Ref Range: <150 mg/dL) 150 H (Ref Range: <150 mg/dL) 148 (Ref Range: <150 mg/dL) Cholesterol 133 (Ref Range: <200 mg/dL) 137 (Ref Range: <200 mg/dL) 173 (Ref Range: <200 mg/dL) LDL Cholesterol Calculated 63 (Ref Range: <100 mg/dL) 63 (Ref Range: <100 mg/dL) 98 (Ref Range: <100 mg/dL) HDL Cholesterol 42 (Ref Range: >40 mg/dL) 44 (Ref Range: >40 mg/dL) 46 (Ref Range: >40 mg/dL) * Lab:Comprehensive Roy. Pane l Fast * Order Date 03/30/2024 03/09/2024 11/11/2023 Sodium 140 (Ref Range: 135-145 mmol/L) 141 (Ref Range: 135-145 mmol/L) 143 (Ref Range: 135-145 mmol/L) Bilirubin Total 0.4 (Ref Range: 0.0-1.0 mg/dL) 0.4 (Ref Range: 0.0-1.0 mg/dL) 0.4 (Ref Range: 0.0-1.0 mg/dL) Aspartate Amino Transferase 21 (Ref Range: 5-37 U/L) 20 (Ref Range: 5-37 U/L) 23 (Ref Range: 5-37 U/L) Alanine Aminotransferase 27 (Ref Range: 0-40 U/L) 20 (Ref Range: 0-40 U/L) 25 (Ref Range: 0-40 U/L) Total Protein 6.7 (Ref Range: 6.5-8.0 g/dL) 6.8 (Ref Range: 6.5-8.0 g/dL) 7.1 (Ref Range: 6.5-8.0 g/dL) Albumin Level 3.7 (Ref Range: 3.5-5.0 g/dL) 3.8 (Ref Range: 3.5-5.0 g/dL) 3.8 (Ref Range: 3.5-5.0 g/dL) Alkaline Phosphatase 68 (Ref Range: 39-117 U/L) 63 (Ref Range: 39-117 U/L) 87 (Ref Range: 39-117 U/L) Potassium 5.5 H (Ref Range: 3.3-5.1 mmol/L) 5.3 H (Ref Range: 3.3-5.1 mmol/L) 5.5 H (Ref Range: 3.3-5.1 mmol/L) Chloride 109 H (Ref Range: 96-108 mmol/L) 109 H (Ref Range: 96-108 mmol/L) 112 H (Ref Range: 96-108 mmol/L) Carbon Dioxide 25 (Ref Range: 22-29 mmol/L) 27 (Ref Range: 22-29 mmol/L) 27 (Ref Range: 22-29 mmol/L) Anion Gap 12 (Ref Range: 12-20) 10 L (Ref Range: 12-20) 10 L (Ref Range: 12-20) Blood Urea Nitrogen 44 H (Ref Range: 9-16 mg/dL) 40 H (Ref Range: 9-16 mg/dL) 41 H (Ref Range: 9-16 mg/dL) Creatinine 1.61 H (Ref Range: 0.5-1.4 mg/dL) 1.49 H (Ref Range: 0.5-1.4 mg/dL) 1.23 (Ref Range: 0.5-1.4 mg/dL) Estimated Glomerular Filt Rate 41 45 56 Glucose Fasting 95 (Ref Range: 60-99 mg/dL) 101 H (Ref Range: 60-99 mg/dL) 102 H (Ref Range: 60-99 mg/dL) Calcium 8.9 (Ref Range: 8.4-10.2 mg/dL) 9.1 (Ref Range: 8.4-10.2 mg/dL) 9.6 (Ref Range: 8.4-10.2 mg/dL) * Lab:Complete Blood Count Aut o Diff * Order Date 03/30/2024 03/09/2024 11/11/2023 White Blood Count 8.1 (Ref Range: 4.8-10.8 X10*3/uL) 7.9 (Ref Range: 4.8-10.8 X10*3/uL) 8.6 (Ref Range: 4.8-10.8 X10*3/uL) Red Blood Count 4.10 L (Ref Range: 4.60-5.80 X10*6/uL) 3.94 L (Ref Range: 4.60-5.80 X10*6/uL) 4.39 L (Ref Range: 4.60-5.80 X10*6/uL) Hemoglobin 12.8 L (Ref Range: 14.0-18.0 g/dl) 12.3 L (Ref Range: 14.0-18.0 g/dl) 13.4 L (Ref Range: 14.0-18.0 g/dl) Hematocrit 40.6 L (Ref Range: 42.0-52.0 %) 38.1 L (Ref Range: 42.0-52.0 %) 41.5 L (Ref Range: 42.0-52.0 %) Mean Corpuscular Volume 99.0 H (Ref Range: 80.0-98.0 fL) 96.7 (Ref Range: 80.0-98.0 fL) 94.5 (Ref Range: 80.0-98.0 fL) Mean Corpuscular Hemoglobin 31.2 (Ref Range: 27.0-33.0 pg) 31.2 (Ref Range: 27.0-33.0 pg) 30.5 (Ref Range: 27.0-33.0 pg) Mean Corpuscular HGB Conc 31.5 (Ref Range: 31.0-36.0 g/dl) 32.3 (Ref Range: 31.0-36.0 g/dl) 32.3 (Ref Range: 31.0-36.0 g/dl) Red Cell Distribution Width 12.3 (Ref Range: 11.0-16.0 %) 12.6 (Ref Range: 11.0-16.0 %) 12.8 (Ref Range: 11.0-16.0 %) Platelet Count 173 (Ref Range: 160-400 X10*3/uL) 166 (Ref Range: 160-400 X10*3/uL) 184 (Ref Range: 160-400 X10*3/uL) Mean Platelet Volume 10.2 (Ref Range: 9.4-12.4 fL) 10.1 (Ref Range: 9.4-12.4 fL) 10.1 (Ref Range: 9.4-12.4 fL) Neutrophils Percent Auto 63.8 (Ref Range: 45-73 %) 63.6 (Ref Range: 45-73 %) 66.3 (Ref Range: 45-73 %) Imm Gran Pct Auto 0.4 (Ref Range: 0.0-0.4 %) 0.4 (Ref Range: 0.0-0.4 %) 0.3 (Ref Range: 0.0-0.4 %) Lymphocytes Percent Auto 23.2 (Ref Range: 20-40 %) 22.3 (Ref Range: 20-40 %) 20.4 (Ref Range: 20-40 %) Monocytes Percent Auto 7.7 (Ref Range: 2-11 %) 7.5 (Ref Range: 2-11 %) 7.2 (Ref Range: 2-11 %) Eosinophils Percent Auto 4.0 (Ref Range: 0-4 %) 5.1 H (Ref Range: 0-4 %) 4.8 H (Ref Range: 0-4 %) Basophils Percent Auto 0.9 (Ref Range: 0-2 %) 1.1 (Ref Range: 0-2 %) 1.0 (Ref Range: 0-2 %) NRBC Pct Auto 0.0 (Ref Range: 0.0-0.2 /100WBC) 0.0 (Ref Range: 0.0-0.2 /100WBC) 0.0 (Ref Range: 0.0-0.2 /100WBC) Neutrophils Absolute Auto 5.1 (Ref Range: 2.0-8.3 x10*3/uL) 5.0 (Ref Range: 2.0-8.3 x10*3/uL) 5.7 (Ref Range: 2.0-8.3 x10*3/uL) Imm Gran Abs Auto 0.03 (Ref Range: 0.00-0.03 X10*3/uL) 0.03 (Ref Range: 0.00-0.03 X10*3/uL) 0.03 (Ref Range: 0.00-0.03 X10*3/uL) Lymphocytes Absolute Auto 1.9 (Ref Range: 1.2-4.9 X10*3/uL) 1.8 (Ref Range: 1.2-4.9 X10*3/uL) 1.8 (Ref Range: 1.2-4.9 X10*3/uL) Monocytes Absolute Auto 0.6 (Ref Range: 0.1-1.2 X10*3/uL) 0.6 (Ref Range: 0.1-1.2 X10*3/uL) 0.6 (Ref Range: 0.1-1.2 X10*3/uL) Eosinophils Absolute Auto 0.3 (Ref Range: 0.0-0.4 X10*3/uL) 0.4 (Ref Range: 0.0-0.4 X10*3/uL) 0.4 (Ref Range: 0.0-0.4 X10*3/uL) Basophils Absolute Auto 0.1 (Ref Range: 0.0-0.2 X10*3/uL) 0.1 (Ref Range: 0.0-0.2 X10*3/uL) 0.1 (Ref Range: 0.0-0.2 X10*3/uL) NRBC Abs Auto 0.000 (Ref Range: 0.0-0.012 X10*3/uL) 0.000 (Ref Range: 0.0-0.012 X10*3/uL) 0.000 (Ref Range: 0.0-0.012 X10*3/uL) Assessment: * Assessment: 1. H ypertension - I10 (Primary), His blood pressures have been in the in the normal range. No change in his regimen was needed. 2 . M ixed hyperlipidemia - E78.2, His lipids are currentlyy stable with an LDL below 70 and 63. 3 . O verweight - E66.3, His weight is stable. 4 . B enign prostatic hyperplasia with lower urinary tract symptoms - N40.1, He rises from sleep once a night to urinate. We have discussed lifestyle modification as a way to reduce nocturia. 5 . A therosclerotic heart disease of [place] coronary artery without angina pectoris - I25.10, He denies any angina since his stents were inserted. He is seeing the artificial flowers starcher regularly. He has had no disturbance of his rhythm. He feels well. He will see Dr. Maldonado of cardiology No change in his regimen is needed today. 6 . P eripheral vascular disease - I73.9, He denies any recent change in claudication or TIA symptoms. 7 . F ormer smoker - Z87.891, He has a planned to prevent relapse and times of stress and illness. Plan: * Treatment: 2. M ixed hyperlipidemia L AB: PROFILE, FASTING (COMPREHENSIVE METABOLIC) L AB: CBC WITH AUTO DIFF L AB: Lipid Panel 3. O verweight L AB: PROFILE, FASTING (COMPREHENSIVE METABOLIC) L AB: CBC WITH AUTO DIFF L AB: Lipid Panel 4. O thers Continue Metoprolol Tartrate Tablet, 100 MG, TAKE 1 TABLET BY MOUTH TWICE DAILY DIRECTED; C ontinue Valsartan Tablet, 40 MG, TAKE 1 TABLET BY MOUTH ONCE DAILY, Oral. * Procedure Codes: 9 [id number] PHONE E/M BY PHYS 11-20 MIN * Preventive Medicine: Counseling: C are goal follow-up plan: Counseling for abnormal BMI given Y es Above Normal BMI Follow-up D ietary management education, guidance, and counseling, Dietary needs education S moking/Tobacco Use Patient counseled on the dangers of tobacco use and urged to quit. 0 04/06/2024 * Follow Up: A s Scheduled (Reason: OV) * Images: * Sign off status: Completed true * Provider: Marylin Smith MD Date: 0 04/06/2024 Generated for Godfreyi neisha/Kirsty/eTransmitting on: 1 09:53 AM EDT History and Physical Notes * HPI (History of Present Illness) Category Sub-Category Detail Notes Telehealth Location of [facility] rendering services:: {...} [address] [place] [address] [place] [id number] Location of patient:: address listed in demographics for today's visit Patient identification confirmed using:: Name, Telehealth method:: Telephone only. Wendy ent not visible to care provider. Consent:: Patient verbally c onsented to treatment, Patient verbally consented to billing insurance company, Patient informed of any privacy concerns related to method of visit Total time spent with patient (mins): 15
--- OUTSIDE RECORDS SUMMARY | 2024-06-15 10:00 | XMS_ITS ---
Author Organization Doroteo Smith III, MD Address [address] [facility] [place] [place] [address] Care Team Providers Care Deposition Reporter Name Role Phone Dr. Doroteo Smith III Primary Care Provider [phone] Allergies Allergen (clinical drug ingredient) Drug/Non Drug Allergy documented on EMR Reaction Allergy Type Onset Date Status No Known Drug Allergy Unknown Drug Allergy Active Results Component Value Reference Range Notes URINE DIP STICK Reviewed date:06/15/2024 02:11:50 PM Interpretation: Performing Lab: Notes/Report: SG 1.020 1.005 - 1.025 pH 5.0 5.0 - 9.0 MABLE Negative Negative - NIT Negative Negative - PRO 100 Negative - Trace GLU Negative Negative - KET Negative Negative - UBG 0.2 0.1 - 1.8 NAIF Negative 0.2 - 1.3 BLD Negative Negative - REASON FOR VISIT Annual Exam Medications Medication SIG (Take, Route, Frequency, Duration) Notes Start Date End Date Status Valsartan 40 MG TAKE 1 TABLET BY MARILIA TH ONCE DAILY Oral Active Ezetimibe 10 MG TAKE 1 TABLET BY MARILIA TH ONCE DAILY Oral Active Simvastatin 40 MG as directed Orally O nce a day Active Metoprolol Tartrate 100 MG TAKE 1 TABLET BY MOUTH TWICE DAILY DIRECTED Active Aspirin 81 MG 1 tablet Orally Once a day Active Metoprolol Tartrate 100 MG TAKE 1 TABLET BY MOUTH TWICE DAILY Orally Twice a day Active Social History Tobacco Use: Social History Observation Description Date Details (start date - stop date) Former Smoker NA - NA Sex Assigned At : Social History Observation Description Sex Assigned At Male Tobacco Control (Standard) Question Answer Notes Tobacco use: Former smoker How long has it been since you last smoked? Grea ter than 10 years Additional Findings: Tobacco non-user Ex-cigaret te smoker AUDIT-C (Standard) Question Answer Notes Did you have a drink containing alcohol in the p ast year? No Points 0 Interpretation Negative Vital Signs Temperature 97.2 degrees Fahrenheit 06/15/20 24 Blood pressure systolic 122 mm Hg 06/15/20 24 Blood pressure diastolic 73 mm Hg 024 Heart Rate 52 /min 06/15/2024 Height 66 in 06/15/2024 Weight 164 lbs 06/15/2024 BMI 26.47 kg/m2 06/15/2024 Encounters Encounter Location Date Provider Diagnosis Doroteo Smith III, MD [address] [place] [address] DR HORTON, JULISA [phone] 06/15/2024 Doroteo Smith Hypertension I10 ; Atherosclerotic heart disease of [place] coronary artery without angina pectoris I25.10 ; Mixed hyperlipidemia E78.2 ; Overweight E66.3 ; Benign prostatic hyperplasia with lower urinary tract symptoms N40.1 ; Former smoker Z87.891 ; GERD without esophagitis K21.9 ; Peripheral vascular disease I73.9 ; 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 No change in his regimen was needed. 06/15/2024 Atherosclerotic hear t disease of [place] coronary artery without angina pectoris (ICD-10 - I25.10) He denies any angina since his stents were inserted. He is seeing the state tested nursing assistant regularly. He has had no disturbance of his rhythm. He feels well. He will see Dr. Maldonado of cardiology No change in his regimen is needed today. 06/15/2024 Mixed hyperlipidemia (ICD-10 - E78.2) His lipids are currently stable and no change in his regimen was needed. 06/15/2024 Overweight (ICD-10 - E66.3) He has lost 4 pounds in his body mass index is now 26.47. I suggested he stabilize his weight at this level and pursue adequate nutrition. 06/15/2024 Benign prostatic hyperplasia with lower urinary tract symptoms (ICD-10 - N40.1) He rises from sleep twice a night to urinate. We have discussed lifestyle modifications he could make to reduce nocturia. 06/15/2024 Former smoker (ICD-1 0 - Z87.891) He has a planned to prevent relapse and times of stress and illness. 06/15/2024 GERD without esophagitis (ICD-10 - K21.9) He was continued on his current regimen. He denies any recent episodes of heartburn. 06/15/2024 Peripheral vascular disease (ICD-10 - I73.9) He denies any recent change in claudication or TIA symptoms.His carotid bruits are unchanged. He is up-to-date with carotid ultrasound. 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 06/15/2024 Right carotid bruit (ICD-10 - R09.89) There is a palpable pulse and he is asymptomatic. He has known aortic stenosis seen on a recent echocardiogram. An ultrasound of the carotid arteries has been ordered to assess the possibility of carotid stenosis. Plan Of Treatment Medication Medication Name Sig Start Date Stop Date Notes Valsartan 40 MG TAKE 1 TABLET BY MARILIA TH ONCE DAILY Oral Ezetimibe 10 MG TAKE 1 TABLET BY MARILIA TH ONCE DAILY Oral Simvastatin 40 MG as directed Orally Once a day Metoprolol Tartrate 100 MG TAKE 1 TABLET BY MOUTH TWICE DAILY DIRECTED Aspirin 81 MG 1 tablet Orally Once a day Metoprolol Tartrate 100 MG TAKE 1 TABLET BY MOUTH TWICE DAILY Orally Twice a day Pending Test Test Name Order Date PROFILE, RANDOM (COMPREHENSIVE METABOLIC ) 06/15/2024 PSA, TOTAL 06/15/2024 CBC WITH AUTO DIFF 06/15/2024 Vitamin D 25-OH Total 06/15/2024 Next Appt Details Follow Up: 3 Months, In a co uple of months, Reason: OV, Routine checkup Provider Name:Doroteo Smith , 05/10/2025 02:15:00 PM, [address] [place] [address] JESSICA LIN, [place], [phone], Provider Name:Doroteo Smith , 06/21/2025 02:00:00 PM, [address] [place] [address] JESSICA LIN, [place], [phone], Progress Notes * Doroteo ACOSTA LDOB:1935 (88 yo M)Acc No.[id number]:06/15/2024 Progress Notes Patient: Doroteo LANDIN Provider: Marylin Smith MD :1935 A ge:88 Y S ex:Male Date:06/15/2024 Address:[address] [place] [address] NILA SAUCEDO [id number] Subjective: * Chief Complaints: * A nnual Exam * HPI: D epression Screening: PHQ-9 L ittle interest or pleasure in doing things?Not at all F eeling down, depressed, or hopeless N ot at all T rouble falling or staying asleep, or sleeping too much S everal days F eeling tired or having little energy N ot at all P oor appetite or overeating N ot at all F eeling bad about yourself or that you are a failure, or have let yourself or your family down N ot at all T rouble concentrating on things, such as reading the newspaper or watching television N ot at all M oving or speaking so slowly that other people could have noticed; or the opposite, being so fidgety or restless that you have been moving around a lot more than usual N ot at all T houghts that you would be better off or of hurting yourself in some way N ot at all T otal Score 1 I nterpretation M inimal Depression F all Risk Screening: Fall History H ave you had any falls with injury in the past year? Y es H ave you had two or more falls in the past year? Y es F all Risk Assessment: N o falls in the past year C OVID-19 Screening: Questions H ave you experienced fever, chills, cough, sore throat, shortness of breath, difficulty breathing, muscle aches, loss of taste or smell? N o H ave you been exposed to the virus within the last 10 days? N o H ave you travelled internationally in the last 10 days? N o H ave you been exposed to COVID-19 in the past? N o S ASEED Questions: SDOH Questions I n the past year have you been worried about losing your housing? N o I n the past year have you or any family members you live with been unable to get any of the following when it was really needed? Check all that apply: N one * : The patient, an 88-year-old male, reported that his legs have been feeling better since he started taking cholesterol pills. He mentioned that he takes the medication daily around 2:30 PM. He also reported that he sees his state tested nursing assistant once a year and is currently stable. He denied any chest pain or angina. He reported that he had some tests done recently on June 08. He mentioned that he has lost 5 lbs and his blood pressure is fine. He also reported that his cholesterol is the lowest it's ever been at 115 and his LDL is 56. He mentioned that he sleeps well most of the time, but occasionally wakes up in the middle of the night and can't get back to sleep. He reported that he usually gets up to urinate once during the night. He also mentioned that he had a tooth extracted recently and is scheduled to have another one extracted soon. * ROS: G eneral/Constitutional: pain o nly normal aches and pains. C hills d enies.?Fatigue a dmits. F ever d enies. E NT: Decreased hearing i n both ears. R espiratory: Denies C hest pain. C ough d enies. ? C ardiovascular: Chest pain with exertion d enies. D yspnea on exertion?denies. S hortness of breath w ith exertion. G astrointestinal: Constipation o ccasional. D ecreased [...] for claudication Coronary artery Stent placement at [facility] Dr. Maldonado 06/08/21No history * Hospitalization/Major Diagno stic Procedure: N o history * Family History: F ather: 52 yrs, Pancreatic cancer. M other: 75 yrs, Coronary artery disease, myocardial infarction, stroke. C vitaliy: alive. His father at the age of [...] History: T obacco Use: T obacco Use/Smoking . Tobacco Control (Standard) T obacco use: F ormer smoker H ow long has it been since you last smoked??Greater than 10 years A dditional Findings: Tobacco non-user E x-cigarette smoker D rugs/Alcohol: D rugs H ave you used drugs other than those for medical reasons in the past 12 months? N o D rug/Alcohol: A ZULEIKA-C (Standard) D id you have a drink containing alcohol in the past year? N o P oints 0 I nterpretation N egative H christen was born in [place], [place]. He has been to Monica and for 57 years. She is 79 years old and is in good health. 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 He continues to work with. 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. He served in the [employer]. The patient lives with his . He does not smoke. 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 * Medications: T akingSimvastatin 40 MG Tablet as directed Orally Once a day Metoprolol Tartrate 100 MG Tablet TAKE 1 TABLET BY MOUTH TWICE DAILY DIRECTED Aspirin 81 MG Tablet Delayed Release 1 tablet Orally Once a day Valsartan 40 MG Tablet TAKE 1 TABLET BY MOUTH ONCE DAILY Oral Ezetimibe 10 MG Tablet TAKE 1 TABLET BY MOUTH ONCE DAILY Oral Medication List reviewed and reconciled with the patientTaking Simvastatin 40 MG Tablet as directed Orally Once a day Taking Metoprolol Tartrate 100 MG Tablet TAKE 1 TABLET BY MOUTH TWICE DAILY DIRECTED Taking Aspirin 81 MG Tablet Delayed Release 1 tablet Orally Once a day Taking Valsartan 40 MG Tablet TAKE 1 TABLET BY MOUTH ONCE DAILY Oral Taking Ezetimibe 10 MG Tablet TAKE 1 TABLET BY MOUTH ONCE DAILY Oral Medication List reviewed and reconciled with the patient * Allergies: N o Known Drug Allergyno[Allergies Verified] Objective: * Vitals: H t: 66, Wt:164, BMI:26.47, BP:122/73, HR:52, Temp:97.2, Ht-cm: 167.64, Wt-k.39. * P ast Orders: Lab:Comprehensive [place]. Pane l Fast * Collection Date 03/30/2024 03/09/2024 11/11/2023 Collection Time 09:25 AM 09:26 AM 08:59 AM Order Date 03/30/2024 03/09/2024 11/11/2023 Sodium 140 [...] Lab:Complete Blood Count Aut o Diff * Collection Date 06/08/2024 03/30/2024 03/09/2024 Collection Time 09:49 AM 09:25 AM 09:26 AM Order Date 06/08/2024 03/30/2024 03/09/2024 White Blood Count 8.0 (Ref Range: 4.8-10.8 X10*3/uL) 8.1 (Ref Range: 4.8-10.8 X10*3/uL) 7.9 (Ref Range: 4.8-10.8 X10*3/uL) Red Blood Count 3.89 L (Ref Range: 4.60-5.80 X10*6/uL) 4.10 L (Ref Range: 4.60-5.80 X10*6/uL) 3.94 L (Ref Range: 4.60-5.80 X10*6/uL) Hemoglobin 12.2 L (Ref Range: 14.0-18.0 g/dl) 12.8 L (Ref Range: 14.0-18.0 g/dl) 12.3 L (Ref Range: 14.0-18.0 g/dl) Hematocrit 38.0 L (Ref Range: 42.0-52.0 %) 40.6 L (Ref Range: 42.0-52.0 %) 38.1 L (Ref Range: 42.0-52.0 %) Mean Corpuscular Volume 97.7 (Ref Range: 80.0-98.0 fL) 99.0 H (Ref Range: 80.0-98.0 fL) 96.7 (Ref Range: 80.0-98.0 fL) Mean Corpuscular Hemoglobin 31.4 (Ref Range: 27.0-33.0 pg) 31.2 (Ref Range: 27.0-33.0 pg) 31.2 (Ref Range: 27.0-33.0 pg) Mean Corpuscular HGB Conc 32.1 (Ref Range: 31.0-36.0 g/dl) 31.5 (Ref Range: 31.0-36.0 g/dl) 32.3 (Ref Range: 31.0-36.0 g/dl) Red Cell Distribution Width 12.1 (Ref Range: 11.0-16.0 %) 12.3 (Ref Range: 11.0-16.0 %) 12.6 (Ref Range: 11.0-16.0 %) Platelet Count 161 (Ref Range: 160-400 X10*3/uL) 173 (Ref Range: 160-400 X10*3/uL) 166 (Ref Range: 160-400 X10*3/uL) Mean Platelet Volume 10.2 (Ref Range: 9.4-12.4 fL) 10.2 (Ref Range: 9.4-12.4 fL) 10.1 (Ref Range: 9.4-12.4 fL) Neutrophils Percent Auto 65.5 (Ref Range: 45-73 %) 63.8 (Ref Range: 45-73 %) 63.6 (Ref Range: 45-73 %) Imm Gran Pct Auto 0.6 H (Ref Range: 0.0-0.4 %) 0.4 (Ref Range: 0.0-0.4 %) 0.4 (Ref Range: 0.0-0.4 %) Lymphocytes Percent Auto 18.6 L (Ref Range: 20-40 %) 23.2 (Ref Range: 20-40 %) 22.3 (Ref Range: 20-40 %) Monocytes Percent Auto 9.6 (Ref Range: 2-11 %) 7.7 (Ref Range: 2-11 %) 7.5 (Ref Range: 2-11 %) Eosinophils Percent Auto 4.7 H (Ref Range: 0-4 %) 4.0 (Ref Range: 0-4 %) 5.1 H (Ref Range: 0-4 %) Basophils Percent Auto 1.0 (Ref Range: 0-2 %) 0.9 (Ref Range: 0-2 %) 1.1 (Ref Range: 0-2 %) NRBC Pct Auto 0.0 (Ref Range: 0.0-0.2 /100WBC) 0.0 (Ref Range: 0.0-0.2 /100WBC) 0.0 (Ref Range: 0.0-0.2 /100WBC) Neutrophils Absolute Auto 5.2 (Ref Range: 2.0-8.3 x10*3/uL) 5.1 (Ref Range: 2.0-8.3 x10*3/uL) 5.0 (Ref Range: 2.0-8.3 x10*3/uL) Imm Gran Abs Auto 0.05 H (Ref Range: 0.00-0.03 X10*3/uL) 0.03 (Ref Range: 0.00-0.03 X10*3/uL) 0.03 (Ref Range: 0.00-0.03 X10*3/uL) Lymphocytes Absolute Auto 1.5 (Ref Range: 1.2-4.9 X10*3/uL) 1.9 (Ref Range: 1.2-4.9 X10*3/uL) 1.8 (Ref Range: 1.2-4.9 X10*3/uL) Monocytes Absolute Auto 0.8 (Ref Range: 0.1-1.2 X10*3/uL) 0.6 (Ref Range: 0.1-1.2 X10*3/uL) 0.6 (Ref Range: 0.1-1.2 X10*3/uL) Eosinophils Absolute Auto 0.4 (Ref Range: 0.0-0.4 X10*3/uL) 0.3 (Ref Range: 0.0-0.4 X10*3/uL) 0.4 (Ref Range: 0.0-0.4 X10*3/uL) Basophils Absolute Auto 0.1 (Ref Range: 0.0-0.2 X10*3/uL) 0.1 (Ref Range: 0.0-0.2 X10*3/uL) 0.1 (Ref Range: 0.0-0.2 X10*3/uL) NRBC Abs Auto 0.000 (Ref Range: 0.0-0.012 X10*3/uL) 0.000 (Ref Range: 0.0-0.012 X10*3/uL) 0.000 (Ref Range: 0.0-0.012 X10*3/uL) * Lab:Lipid Panel * Collection Date 06/08/2024 03/30/2024 03/09/2024 Collection Time 09:49 AM 09:25 AM 09:26 AM Order Date 06/08/2024 03/30/2024 03/09/2024 Triglycerides 107 (Ref Range: <150 mg/dL) 144 (Ref Range: <150 mg/dL) 150 H (Ref Range: <150 mg/dL) Cholesterol 115 (Ref Range: <200 mg/dL) 133 (Ref Range: <200 mg/dL) 137 (Ref Range: <200 mg/dL) LDL Cholesterol Calculated 56 (Ref Range: <100 mg/dL) 63 (Ref Range: <100 mg/dL) 63 (Ref Range: <100 mg/dL) HDL Cholesterol 38 L (Ref Range: >40 mg/dL) 42 (Ref Range: >40 mg/dL) 44 (Ref Range: >40 mg/dL) * Lab:URINE DIP STICK * Collection Date 06/15/2024 09/07/2022 Order Date 06/15/2024 09/07/2022 SG 1.020 (Ref Range: 1.005 - 1.025) 1.015 pH 5.0 (Ref Range: 5.0 - 9.0) 5.0 MABLE Negative (Ref Range: Negative -) Neg NIT Negative (Ref Range: Negative -) Neg PRO 100 (Ref Range: Negative - Trace) 30 GLU Negative (Ref Range: Negative -) Neg KET Negative (Ref Range: Negative -) Neg UBG 0.2 (Ref Range: 0.1 - 1.8) 0.2 NAIF Negative (Ref Range: 0.2 - 1.3) Neg BLD Negative (Ref Range: Negative -) Neg Menstrating NR N/A * Examination: G eneral Examination: GENERAL APPEARANCE: p leasant, well nourished, well developed, in no acute distress, calm and relaxed, overweight, elderly man. HEAD: a traumatic, normocephalic. EYES: e elizabeth, perrla, anicteric, conjugate. EARS: n ormal. NOSE: s eptum intact. ORAL CAVITY: n ormal, unremarkable. NECK/THYROID: n o jugular venous distention, no carotid bruit, thyroid normal. LYMPH NODES: n o enlarged lymph nodes,spleen normal. SKIN: n o suspicious lesions, anicteric. HEART: n o clicks, gallops, murmurs, or rubs, regular rhythm, S1, S2 normal, no s3, or vascular bruits. LUNGS: c lear to auscultation . BREASTS: no masses palpable bilaterally. ABDOMEN: b owel sounds normal, no ascites, no organomegaly, no mass, overweight. RECTAL EXAM: n ot examined. MUSCULOSKELETAL: e xtremities unremarkable, no clubbing, cyanosis or edema. PERIPHERAL PULSES: B ilateral carotid bruits are present.? NEUROLOGIC: a lert and oriented, cranial nerves 2-12 grossly intact, deep tendon reflexes 2+ symmetrical, motor strength normal upper and lower extremities, sensory exam intact. PSYCH: a lert, oriented, speech clear, cognitive function intact. - : E yes:Normal, Throat: Normal, Lungs: Normal, Arteries in neck: Normal, Legs: No swelling, Hernia: No issues. Assessment: * Assessment: 1. A therosclerotic heart disease of [place] coronary artery without angina pectoris - I25.10 (Primary) N otes :He denies any angina since his stents were inserted. He is seeing the state tested nursing assistant regularly. He has had no disturbance of his rhythm. He feels well. He will see Dr. Maldonado of cardiology No change in his regimen is needed today. 2 . H ypertension - I10 N otes :His blood pressure is 122/73.. No change in his regimen was needed. 3 . M ixed hyperlipidemia - E78.2 N otes :His lipids are currently stable and no change in his regimen was needed. 4 . O verweight - E66.3 N otes :He has lost 4 pounds in his body mass index is now 26.47. I suggested he stabilize his weight at this level and pursue adequate nutrition. 5 . B enign prostatic hyperplasia with lower urinary tract symptoms - N40.1? Notes :He rises from sleep twice a night to urinate. We have discussed lifestyle modifications he could make to reduce nocturia. 6 . F ormer smoker - Z87.891 N otes :He has a planned to prevent relapse and times of stress and illness. 7 . G ERD without esophagitis - K21.9 N otes :He was continued on his current regimen. He denies any recent episodes of heartburn. 8 . P eripheral vascular disease - I73.9 N otes :He denies any recent change in claudication or TIA symptoms.His carotid bruits are unchanged. He is up-to-date with carotid ultrasound. 9 . 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 1 0. R ight carotid bruit - R09.89 N otes :There is a palpable pulse and he is asymptomatic. He has known aortic stenosis seen on a recent echocardiogram. An ultrasound of the carotid arteries has been ordered to assess the possibility of carotid stenosis. Plan: * Treatment: 2. M ixed hyperlipidemia L AB: PROFILE, RANDOM (COMPREHENSIVE METABOLIC) L AB: PSA, TOTAL L AB: CBC WITH AUTO DIFF L AB: Vitamin D 25-OH Total 3. O verweight L AB: PROFILE, RANDOM (COMPREHENSIVE METABOLIC) L AB: PSA, TOTAL L AB: CBC WITH AUTO DIFF L AB: Vitamin D 25-OH Total 4. B enign prostatic hyperplasia with lower urinary tract symptoms L AB: PROFILE, RANDOM (COMPREHENSIVE METABOLIC) L AB: PSA, TOTAL L AB: CBC WITH AUTO DIFF L AB: Vitamin D 25-OH Total 5. O thers Continue Metoprolol Tartrate Tablet, 100 MG, TAKE 1 TABLET BY MOUTH TWICE DAILY DIRECTED; C ontinue Valsartan Tablet, 40 MG, TAKE 1 TABLET BY MOUTH ONCE DAILY, Oral. * Labs: * L ab: URINE DIP STICK (Collection Date & Time - 06/15/2024) Value Reference Range S G 1.020 1.005 - 1.025 * p H 5.0 5.0 - 9.0 * L EU Negative Negative - * N IT Negative Negative - * P RO 100 Negative - Trace * G TAMMY Negative Negative - * K ET Negative Negative - * U BG 0.2 0.1 - 1.8 * B IL Negative 0.2 - 1.3 * B LD Negative Negative - * Procedure Codes: 8 1002 URINE-NO MICRO * Preventive Medicine: Counseling: C are goal follow-up plan: Counseling for abnormal BMI given Y es Above Normal BMI Follow-up D ietary management education, guidance, and counseling S moking/Tobacco Use Patient counseled on the dangers of tobacco use and urged to quit. 1 08/15/2023 * Follow Up: 3 Months, In a couple of months (Reason: OV, Routine checkup) * Images: * Sign off status: Completed true * Provider: Marylin Smith MD Date: 08/15/2023 Generated for Usha driver/Kirsty/Mukulransmitting on: 1 09:53 AM EDT History and Physical Notes * HPI (History of Present Illness) Category Sub-Category Detail Notes Depression Screening PHQ-9 Little inte rest or pleasure in doing things: Not at all Feeling down, depressed, or hopeless: No t at all Trouble falling or staying asleep, or sl eeping too much: Several days Feeling tired or having little energy: N ot at all Poor appetite or overeating: Not at all Feeling bad about yourself o r that you are a failure, or have let yourself or your family down: Not at all Trouble concentrating on thi ngs, such as reading the newspaper or watching television: Not at all Moving or speaking so slowly that other people could have noticed; or the opposite, being so fidgety or restless that you have been moving around a lot more than usual: Not at all Thoughts that you would be b efraín off or of hurting yourself in some way: Not at all Total Score: 1 Interpretation: Minimal Depression Fall Risk Screening Fall History Have you had any falls with injury in the past year?: Yes Have you had two or more falls in the ?: Yes Fall Risk Assessment:: No falls in the year COVID-19 Screening Questions Have you had any new onset fever, chills, cough, congestion, sore throat, shortness of breath, muscle aches?: No Have you been exposed to the virus withi n the last 10 days?: No Have you travelled internationally in last 10 days?: No Have you been exposed to COVID-19 in the past?: No SDOH Questions SDOH Questions In the past year have you been worried about losing your housing?: No In the past year have you or any family members you live with been unable to get any of the following when it was really needed? Check all that apply:: None Examination Category Sub-Category Detail Notes General Examination GENERAL APPEARANCE: pleasant , well nourished, well developed, in no acute distress, calm and relaxed, overweight, elderly man HEAD: atraumatic, normocep halic EYES: eomi, perrla, anicte benito, conjugate EARS: normal NOSE: septum intact NECK/THYROID: no jugular venous di stention, no carotid bruit, thyroid normal HEART: no clicks, gallops, murmurs, or rubs, regular rhythm, S1, S2 normal, no s3, or vascular bruits LUNGS: clear to auscultatio n ABDOMEN: bowel sounds normal, no ascites, no organomegaly, no mass, overweight NEUROLOGIC: alert and oriented, cranial nerves 2-12 grossly intact, deep tendon reflexes 2+ symmetrical, motor strength normal upper and lower extremities, sensory exam intact SKIN: no suspicious lesion s, anicteric PERIPHERAL PULSES: Bilateral carotid br uits are present BREASTS: no masses palpable b ilaterally MUSCULOSKELETAL: extremities unremark able, no clubbing, cyanosis or edema LYMPH NODES: no enlarged lymph no bell,spleen normal RECTAL EXAM: not examined PSYCH: alert, oriented, spe ech clear, cognitive function intact ORAL CAVITY: normal, unremarkable
--- OUTSIDE RECORDS SUMMARY | 2024-07-23 05:31 | XMS_ITS ---
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 Doroteo Smith III Primary Care Provider [phone] REASON FOR VISIT Message Social History Sex Assigned At : Social History Observation Description Sex Assigned At Male Encounters Encounter Location Date Provider Diagnosis Doroteo Smith III, MD [address] [place] [address] [address] [place] [address] 07/23/2024 Doroteo Smith Plan Of Treatment Next Appt Details Provider Name:Doroteo Smith , 05/10/2025 02:15:00 PM, [address] [place] [address] [place], [address], Provider Name:Doroteo Smith , 06/21/2025 02:00:00 PM, [address] [place] [address] [place], [address], Progress Notes * Doroteo ACOSTA LDOB:1935 (88 yo M)Acc No.[id number]:07/23/2024 Patient: Radha FROSTDoroteo ANAYA :1935 A ge:88 Y S ex:Male Address:[address] [place] [address], [phone] * true * Date: Generated for Printi ng/Faxing/eTransmitting on: 09:54 AM EDT
[2025-05-03 09:59] LABS: MANUAL DIFF FLAG NO
[2025-05-03 10:26] LABS: Hematocrit 42.9 % (42.0-52.0); Hemoglobin 13.3 g/dl (14.0-18.0); Imm Gran Abs Auto 0.06 X10*3/uL (0.00-0.03); Imm Gran Pct Auto 0.6 % (0.0-0.4); Lymphocytes Absolute Auto 1.6 X10*3/uL (1.2-4.9); Mean Corpuscular HGB Conc 31.0 g/dl (31.0-36.0); Mean Corpuscular Hemoglobin 30.6 pg (27.0-33.0); Mean Corpuscular Volume 98.6 fL (80.0-98.0); NRBC Abs Auto 0.000 X10*3/uL (0.0-0.012); NRBC Pct Auto 0.0 /100WBC (0.0-0.2); Platelet Count 209 X10*3/uL (160-400); Red Blood Count 4.35 X10*6/uL (4.60-5.80); White Blood Count 9.8 X10*3/uL (4.8-10.8)
[2025-05-03 10:56] LABS: Alanine Aminotransferase 15 U/L (0-40); Albumin Level 3.7 g/dL (3.5-5.0); Alkaline Phosphatase 95 U/L (39-117); Anion Gap 10 (12-20); Aspartate Amino Transferase 27 U/L (5-37); Blood Urea Nitrogen 34 mg/dL (9-16); Calcium 9.1 mg/dL (8.4-10.2); Carbon Dioxide 28 mmol/L (22-29); Chloride 111 mmol/L (96-108); Cholesterol 164 mg/dL (<200); Estimated Glomerular Filt Rate 48; HDL Cholesterol 45 mg/dL (>40); Potassium 5.3 mmol/L (3.3-5.1); Sodium 144 mmol/L (135-145); Total Protein 7.0 g/dL (6.5-8.0); Triglycerides 125 mg/dL (<150)
== END 2025-05-03 09:47 | disposition home or self-care (01) ==
LOC: HO.LAB 09:46
PROVIDERS: PCP Internal Medicine Medical Oncology; Visit Provider Internal Medicine Medical Oncology
DX: I10 Essential (primary) hypertension (principal); E78.2 Mixed hyperlipidemia; E66.3 Overweight
CPT/HCPCS: 36415; 80053; 80061; 85025